=== PATIENT | female | born 1960 | race Caucasian/White ===

== ENCOUNTER → 2018-09-01 15:26 | Outpatient (CLI) | payer BC, SELFPAY ==
--- NOTE | 2018-09-01 15:28 | US_ITS ---
STUDY: SOFT TISSUE NECK ULTRASOUND REASON FOR EXAM: Female, 57 years old. For palpable lump TECHNIQUE: Sonographic evaluation of the soft tissues of the left neck COMPARISON: None. FINDINGS: There is a 1.5 x 0.5 x 0.4 cm hypoechoic 9 shadowing nodule with fatty center suggesting lymph node. No fluid collection or hyperemia noted. US/Head/Neck Soft Tissue IMPRESSION: Likely benign lymph node corresponding to the palpable left neck lump Electronically Signed: Joseph Bray MD at 16:00 EDT , Service support ,
--- NOTE | 2018-09-01 16:05 | RAD_ITS ---
STUDY: X-RAY - CERVICAL SPINE REASON FOR EXAM: Female, 57 years old. Left-sided neck pain TECHNIQUE: 6 view(s) of the cervical spine were obtained. COMPARISON: None FINDINGS: Normal anterior atlantoaxial articulation. Normal odontoid process. Normal cervical lordosis. Normal vertebral bodies and endplates. Normal disc space heights. Normal visualized intervertebral neuroforamina. The soft tissue structures are unremarkable. RAD/Cerv Spine 4 or 5 Views IMPRESSION: Normal x-ray examination of the visualized cervical spine. Electronically Signed: Joseph Bray MD at 16:12 EDT , Service support ,
== END ==
PROVIDERS: Family Provider Family Medicine; PCP Family Medicine; Referring Provider Family Medicine; Visit Provider Family Medicine
DX: M54.2 Cervicalgia (principal); G89.29 Other chronic pain; R59.0 Localized enlarged lymph nodes
CPT/HCPCS: 72050; 76536

== ENCOUNTER → 2018-10-14 09:48 | Outpatient (CLI) | payer BC, SELFPAY ==
--- NOTE | 2018-10-14 09:50 | RAD_ITS ---
STUDY: X-RAY - RIGHT SHOULDER REASON FOR EXAM: Chronic pain. TECHNIQUE: 3 view(s) of the shoulder. COMPARISON: Radiographs 01/07/2015. FINDINGS: Normal glenohumeral articulation. There is elevation of the distal clavicle. Normal acromion. Normal humeral head and visualized proximal humerus. The soft tissue structures are unremarkable. Normal visualized pulmonary apex. RAD/Shoulder min 2 Views IMPRESSION: Elevation of the distal clavicle suggesting remote acromioclavicular separation. Electronically Signed: Thomas Garcia MD at 11:41 EST Tel , Service support ,
--- OUTSIDE RECORDS SUMMARY | 2018-11-30 09:43 | XMS RPT_ITS ---
:1960 Author Organization OHIP Care Team Providers Name Role Phone YONI VELAZQUEZ III Attending Unavailable JUDY CABA (VOCATIONAL AIDE) Attending Unavailable JUDY CABA (VOCATIONAL AIDE) Referring Unavailable KISHAN KELLEY (NIMCO) Attending Unavailable Marcella Purvis Attending Unavailable Josep Wilson Referring Unavailable Marcella Purvis Attending Unavailable Marcella Purvis Referring Unavailable Steve, Josep Primary Care Unavailable Josep Wilson Attending Unavailable Josep Wilson Referring Unavailable SteveJosep marrero Primary Care Unavailable Judy Salguero Attending Unavailable Josep Wilson Primary Care Unavailable Judy Salguero Referring Unavailable PROBLEMS PROBLEMS DATE TYPE CONDITION / CODE ATTENDING STATUS SOURCE 10/14/2018 Unknown M25.511 - Pain Marcella Purvis Active Thelma in right [facility] shoulder / Hospital M25.511(ICD-10) Repository 09/16/2018 Active Pain in right NA Active [facility] knee / Main [place] M25.561(ICD-10) Repository PROCEDURES PROCEDURES No Procedure Records FoundRESULTS RESULTS PROGRESS Observed: 10/21/2018 Status: COMPLETED Source: [place] 2:56 PM [facility] REPOSITORY HNO ID: [id number] Author: Kishan (Nimco) Katherine Service: (none) Author Type: Nurse Practitioner Type: Progress Notes Filed: 10/21/2018 3:01 PM Note Text: 10/21/2018 Patient presents with: Pain: x5 right finger infec. SUBJECTIVE: This is a 57 year old that is here today for concern for right index finger infection at the nail bed. She states that she pulled a hang nail and it started to red red 5 days ago and has since become swollen, tender, warm to touch, and more red down the finger. She denies fever or chills. She has been cleaning it, using antibiotic ointment and keeping it covered. She is able to use the hand and finger normally, just tender when bumped or touched. She is very concerned about the need for PO antibiotic with multiple reactions in the past. PAST MEDICAL HISTORY Diagnosis Date - Anxiety with somatization 03/02/2014 - fibromyalgia - Fibromyalgia 04/24/2012 - Lumbar degenerative disc disease 11/25/2014 - Lumbar radiculopathy 11/25/2014 - Osteoarthritis 04/24/2012 - Osteopenia 08/31/2015 see scanned documents - PMH - PAST MEDICAL HISTORY OF small fibroid mast - PMH - PAST MEDICAL HISTORY OF cyst on ovary - PMH - PAST MEDICAL HISTORY OF low projestrone - PMH - PAST MEDICAL HISTORY OF 04/04/10 torn calf muscle - Ruptured silicone breast implant 04/01/2018 ALLERGIES Adhesive Tape (Rosins); Amoxicillin; Benadryl [Diphenhydramine Hcl]; Crab Meat [Other]; Erythromycin; Keftab [Cephalexin Hcl]; Lorabid [Loracarbef]; Penicillins; [place]arlake Oil; Progesterone; Selenium Sulfide; Shellfish; Tetracycline; Tussin [Dextromethorphan Hbr]; Z- Pack [Other] MEDICATIONS Current Outpatient Prescriptions: Ascorbic Acid (VITAMIN C) Chew Take 500 mg by mouth once daily. castor oil liquid Take 1 Tablespoonful by mouth once daily. topical every night CINNAMON BARK (CINNAMON ORAL) Take 1 teaspoonful by mouth once daily. COMPOUNDED PRESCRIPTION Take 1 tablet by mouth once daily. Magnesium malich acid, manganese, B1, B6 and vitaminC gabapentin (NEURONTIN) 100 mg capsule 100-300mg at bedtime as needed for neuropathic pain ibuprofen (ADVIL) 200 mg tablet Take 200 mg by mouth as needed. mupirocin (BACTROBAN) 2 % ointment Apply 1 application to affected area three times daily for 10 days. OTC NUTRITIONAL SUPPLEMENT Take 2 capsules by mouth once daily. fish oil 640 mg , EPA 350 mg, DHA 450 mg 2 daily sulfamethoxazole-trimethoprim (BACTRIM DS) 800-160 mg per tablet Take 1 tablet by mouth twice daily for 10 days. No current facility-administered medications for this visit. Medications and allergies reviewed by this provider. 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 . Vital signs reviewed by this provider. PHYSICAL EXAMINATION: General appearance: Well appearing, alert, in no acute distress, well-hydrated, well nourished. Skin: right index finger with swelling, erythema, warmth, and tenderness to touch. The majority of the swelling is to the medial edge of nail bed. ASSESSMENT/PLAN: 1. Finger infection - ICD9: 686.9, ICD10: L08.9 - Ok to start with topical, but if no improvement in 1-2 days, would recommend PO. Printed script provided for PO. - continue to wash with soap and water - No lymphangetic streaking, this was defined for patient to watch for and to seek medical care immediately if appears - Area of cellulitis defined, seek further attention if this area continues to enlarge - SULFAMETHOXAZOLE 800 MG-TRIMETHOPRIM 160 MG TABLET - MUPIROCIN 2 % TOPICAL OINTMENT Kishan Kelley APRN.CONSULTANT TEACHER CNOV Observed: 10/21/2018 Status: COMPLETED Source: [place] 1:20 PM [facility] REPOSITORY Office Visit (FAMPWS) BONNIE BERMUDEZ ([id number]) 1960 F Date Time Provider Department 10/21/18 1:20 PM KISHAN KELLEY (NIMCO) FOR[facility] During your visit today, we recorded the following information about you: Pulse Respiration Blood pressure Weight 82/minute 16/minute 122/72 70.8 kg Kishan Kelley APRN.CNP 10/21/2018 3:01 PM Signed 10/21/2018 Patient presents with: Pain: x5 right finger infec. SUBJECTIVE: This is a 57 year old that is here today for concern for right index finger infection at the nail bed. She states that she pulled a hang nail and it started to red red 5 days ago and has since become swollen, tender, warm to touch, and more red down the finger. She denies fever or chills. She has been cleaning it, using antibiotic ointment and keeping it covered. She is able to use the hand and finger normally, just tender when bumped or touched. She is very concerned about the need for PO antibiotic with multiple reactions in the past. PAST MEDICAL HISTORY Diagnosis Date - Anxiety with somatization 03/02/2014 - fibromyalgia - Fibromyalgia 04/24/2012 - Lumbar degenerative disc disease 11/25/2014 - Lumbar radiculopathy 11/25/2014 - Osteoarthritis 04/24/2012 - Osteopenia 08/31/2015 see scanned documents - PMH - PAST MEDICAL HISTORY OF small fibroid mast - PMH - PAST MEDICAL HISTORY OF cyst on ovary - PMH - PAST MEDICAL HISTORY OF low projestrone - PMH - PAST MEDICAL HISTORY OF 04/04/10 torn calf muscle - Ruptured silicone breast implant 04/01/2018 ALLERGIES Adhesive Tape (Rosins); Amoxicillin; Benadryl [Diphenhydramine Hcl]; Crab Meat [Other]; Erythromycin; Keftab [Cephalexin Hcl]; Lorabid [Loracarbef]; Penicillins; Clearl[place] Oil; Progesterone; Selenium Sulfide; Shellfish; Tetracycline; Tussin [Dextromethorphan Hbr]; Z-Pack [Other] MEDICATIONS Current Outpatient Prescriptions: Ascorbic Acid (VITAMIN C) Chew Take 500 mg by mouth once daily. castor oil liquid Take 1 Tablespoonful by mouth once daily. topical every night CINNAMON BARK (CINNAMON ORAL) Take 1 teaspoonful by mouth once daily. COMPOUNDED PRESCRIPTION Take 1 tablet by mouth once daily. Magnesium malich acid, manganese, B1, B6 and vitaminC gabapentin (NEURONTIN) 100 mg capsule 100-300mg at bedtime as needed for neuropathic pain ibuprofen (ADVIL) 200 mg tablet Take 200 mg by mouth as needed. mupirocin (BACTROBAN) 2 % ointment Apply 1 application to affected area three times daily for 10 days. OTC NUTRITIONAL SUPPLEMENT Take 2 capsules by mouth once daily. fish oil 640 mg , EPA 350 mg, DHA 450 mg 2 daily sulfamethoxazole-trimethoprim (BACTRIM DS) 800-160 mg per tablet Take 1 tablet by mouth twice daily for 10 days. No current facility-administered medications for this visit. Medications and allergies reviewed by this provider. 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 . Vital signs reviewed by this provider. PHYSICAL EXAMINATION: General appearance: Well appearing, alert, in no acute distress, well-hydrated, well nourished. Skin: right index finger with swelling, erythema, warmth, and tenderness to touch. The majority of the swelling is to the medial edge of nail bed. ASSESSMENT/PLAN: 1. Finger infection - ICD9: 686.9, ICD10: L08.9 - Ok to start with topical, but if no improvement in 1-2 days, would recommend PO. Printed script provided for PO. - continue to wash with soap and water - No lymphangetic streaking, this was defined for patient to watch for and to seek medical care immediately if appears - Area of cellulitis defined, seek further attention if this area continues to enlarge - SULFAMETHOXAZOLE 800 MG-TRIMETHOPRIM 160 MG TABLET - MUPIROCIN 2 % TOPICAL OINTMENT Kishan Kelley APRN.CONSULTANT TEACHER Referring Provider: SELF [200] Allergies As of Date: 10/21/2018 Noted Allergy Reaction ADHESIVE TAPE (ROSINS) 02/17/2013 14 - Other: See Comments Comments: makes skin raw AMOXICILLIN 10/05/2005 BENADRYL (DIPHENHYDRAMINE HCL) 10/05/2005 CRAB MEAT [Other] 10/05/2005 ERYTHROMYCIN 10/05/2005 KEFTAB (CEPHALEXIN HCL) 10/05/2005 LORABID (LORACARBEF) 10/05/2005 PENICILLINS 02/17/2013 2 - Rash Comments: hives, redness PINE OIL 03/02/2014 2 - Rash PROGESTERONE 04/17/2012 8 - GI Upset SELENIUM SULFIDE 04/19/2010 SHELLFISH 10/05/2005 TETRACYCLINE 10/31/2009 2 - Rash TUSSIN (DEXTROMETHORPHAN HBR) 10/05/2005 Z-PACK [Other] 10/05/2005 Date Reviewed: 10/21/2018 Reviewed by: Jodie Francisco) ALEJANDRA Terry - Fully Assessed Reason for Visit: Pain [78] Cmt: x5 right finger infec. Primary Visit Diagnosis:Finger infection [L08.9] Order(s):sulfamethoxazole-trimethoprim (BACTRIM DS) 800-160 mg per tabletTake 1 tablet by mouth twice daily for 10 days.Disp: 20 tabletRfl: 0 mupirocin (BACTROBAN) 2 % ointmentApply 1 application to affected area three times daily for 10 days.Disp: 22 gRfl: 0 Prescriptions as of 10/21/2018 Sig: ASCORBIC ACID (VITAMIN C) 500* Take 500 mg by mouth once shwetha* CASTOR OIL Take 1 Tablespoonful by mouth* CINNAMON ORAL Take 1 teaspoonful by mouth o* COMPOUNDED PRESCRIPTION Take 1 tablet by mouth once d* GABAPENTIN 100 MG CAPSULE 100-300mg at bedtime as neede* IBUPROFEN 200 MG TABLET Take 200 mg by mouth as neede* MUPIROCIN 2 % TOPICAL OINTMENT Apply 1 application to affect* OTC NUTRITIONAL SUPPLEMENT Take 2 capsules by mouth once* SULFAMETHOXAZOLE 800 MG-TRIME* Take 1 tablet by mouth twice * Problem List As Of Date 10/21/2018 Noted Resolved ESOPHAGEAL REFLUX [K21.9] INVALID FOR* MYALGIA AND MYOSITIS NOS [RRM1714] INVALID FOR* EXCESSIVE MENSTRUATION [N92.0] INVALID FOR* Folliculitis [L73.9] INVALID FOR* 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) Furf*INVALID FOR* Eczematous Dermatitis [L30.9] INVALID FOR* Exanthem [R21] INVALID FOR* Other Acne [L70.8] INVALID FOR* Gastrocnemius Muscle Tear [S86.119A] INVALID FOR* Actinic Damage//Sun-Damaged Skin [L57.8] INVALID FOR* Open Wnd Site from Cryosurgery (leg) healing [T*INVALID FOR* Fibroid [D21.9] INVALID FOR* Metrorrhagia [N92.1] INVALID FOR* Dysmenorrhea [N94.6] INVALID FOR* Fibromyalgia [M79.7] INVALID FOR* Osteoarthritis [M19.90] INVALID FOR* Pain in joint, multiple sites [M25.50] INVALID FOR* Anemia [D64.9] INVALID FOR* Anxiety with somatization [F41.9, F45.0] INVALID FOR* Pain in joint, shoulder region [M25.519] INVALID FOR* Lumbar degenerative disc disease [M51.36] INVALID FOR* Lumbar radiculopathy [M54.16] INVALID FOR* Lumbago [M54.5] INVALID FOR* Acromioclavicular (joint) (ligament) sprain [S4*INVALID FOR* Ruptured silicone breast implant [T85.49XA] INVALID FOR* Prescriptions ordered this encounter Disp Refills Start End SULFAMETHOXAZOLE 800 MG-TRIMETHOPRIM* 20 t* 0 10/21/2018 10/31/2018 Class: Print RX Cmt: Ok to give generic equivalent Route: ORAL Sig: Take 1 tablet by mouth twice daily for 10 days. MUPIROCIN 2 % TOPICAL OINTMENT 22 g 0 10/21/2018 10/31/2018 Route: TOPICAL Sig: Apply 1 application to affected area three times daily for 10 days. Medications Discontinued During This Encounter mupirocin (BACTROBAN) 2 % ointment 22 g 0 09/06/2018 10/21/2018 Route: TOPICAL Sig: Apply 1 application to affected area three times daily for 10 days. Disc: Reason for discontinue is not on file. Encounter Status:Closed by KISHAN KELLEY on 10/21/18 PT D/C SUMMARY (1) Observed: 10/21/2018 Status: F Source: [place] 9:53 AM [facility] REPOSITORY [facility] Physical Therapy [facility] [address] [place] [address] Fax REHABILITATION SERVICES DISCHARGE SUMMARY MR#: [id number] Acct: [id number] Name: BONNIE BERMUDEZ Rep #: [id number] : 1960 57 From: Eli Bullock DPT Referring Dr.: Judy WOODSON Status: REG RCR Insurance: ANTHEM SELF PAY INSURANCE HP - PT D/C Summary It has been my pleasure to treat BONNIE BERMUDEZ under orders from Judy Caba VOCATIONAL AIDE-C, for the diagnosis of Right Knee Pain for a total of 13 visit(s). Discharge Date: Please see the following information for a summary of their discharge status. - Subjective Subjective: Patient reports that she still can't do the TM without pain but she is a lot stronger and likes the exercises. Body works in the lower extremity is her plan as well as strengthening. - Pain RLE Pain Intensity (Out of 10): 0 - Overall Improvement % Improvement: 50 - Objective Objective/Function: Posture: WNL throughout treatment session in hardback chair Gait: no deviation noted. Stairs: asc/desc 8 recip with 1 HR- uses HR with good control HR/TR: able with pain. SLS: 15 sec without LOB ROM: WLF in all planes. Palpation: not tender to touch Strength: Core: poor, Hip: 4+/5 throughout, Knee: 5/5, Ankle: 5/5 throughout. Special Test: LLD: none Pelvic Alignment: WFL - Goals Goal 1:: Patient will be I with HEP and progression Goal Progress: Goal Met Goal 2:: Patient will maintain proper posture t/o tx session to demo increased core s/s. Goal Progress: Goal Met Goal 3:: Patient will demo 5/5 strength in LE where deficit Goal Progress: Progressing Goal 4:: Patient will report 0/10 pain for 1 week Goal Progress: Progressing Goal 5:: Patinet will asc/desc 8 stairs recip with 1 HR and good control Goal Progress: Goal Met - Plan Plan: Discharge to I [facility]P via [facility]- encouraged her to ask if questions arise. - D/C Information If there are questions or concerns regarding this patient's physical therapy, please feel free to call me at [phone]. Thank you for the referral of this patient. Sincerely, Eli Bullock, DPT <Electronically signed by Eli Bullock DPT> 10/21/18 0953 CC: Judy WOODSON; Josep Wilson DO ELR Signed ORTHOPEDIC VISIT Observed: 10/14/2018 Status: F Source: [place] REPORT 2:44 PM [facility] REPOSITORY [facility] [address] [place] [address] [address] [place] [address] OFFICE VISIT Date of Service: 10/14/18 MR#: [id number] Acct: [id number] Name: BONNIE BERMUDEZ Rep #: [id number] : 1960 Provider: Marcella Purvis DO Age/Sex: 57/F Location: [facility] [place] [place] Status: Signed Intake Intake Visit Reasons: right shoulder Allergies azithromycin [From Zithromax] Allergy (Verified 01/07/15 13:06) Rash cephalexin monohydrate [From Keflex] Allergy (Verified 01/07/15 13:06) Rash diphenhydramine HCl [From Benadryl] Allergy (Verified 01/07/15 13:06) Other loracarbef [From Lorabid] Allergy (Verified 01/07/15 13:06) Other Penicillins Allergy (Verified 01/07/15 13:06) Anaphylaxis shellfish derived Allergy (Verified 01/07/15 13:06) Anaphylaxis tetracycline Allergy (Verified 01/07/15 13:06) Rash Medications Ibuprofen [Motrin] 800 mg PO TID PRN PRN #30 tab 01/07/15 [Rx] PFSH Social History Smoking Status: Former smoker HPI right shoulder: Details: BONNIE BERMUDEZ is a 57 year old F here today for right shoulder pain. Patient states she has numbness going down right shoulder along with grinding. She states she has had this issue since her injury in 2013. She has been using her Thera band. She stopped doing pushups due to pain. She has been noticing the numbness mostly at night time. She is not taking any pain meds. Ortho Exam Right Shoulder Skin/Wound: Yes CDI Contralateral Normal: Yes Testing: Positive Hawkin's, Neer's, AROM-External Rotation at 90 0-60 (40), AROM-Forward Elevation 0-180, AROM-External Rotation at side 0-60 and TTP AC Joint SHOULDER: Neg Mariel today, neg dakotah Assessment AND Plan 1. Subacromial impingement of right shoulder M75.41 Plan patient has no neuro exam findings today on exam, but subjective radiculopathy at night. defer to dr cutler, but if having concerns and not improving, told to return. may need EMG, etc but will defer to he at this time. she is also having some impingment symptoms but pt refused injection today. All questions answered. Patient in agreement of plan. X-rays were reviewed. There is no obvious fracture, dislocation, or lucency noted but there is a change in the AC joint. Explained that the radicular pain done her arm is likely from her neck but the ac separation from the injury is also causing pain. Her treatment options are do nothing, injection, referral to Dr Garg for her neck or PT. She can continue chiro care as long as it is helpful. She has neg spurlings today. Gave PT script for dry needling. Patient declines injection today. Follow up as needed or sooner if pain, swelling, numbness or associated symptoms, or concerns develop. All questions answered. Patient in agreement of plan. 2. Sprain of right acromioclavicular ligament, initial encounter S43.51XA 3. Cervical radicular pain M54.12 Plan Detail Other Orders Orders: Coding Level of Care Code Off vis,est,level 4 Diagnoses Subacromial impingement of right shoulder M75.41 Sprain of right acromioclavicular ligament, initial encounter S43.51XA Encounter type: initial encounter Cervical radicular pain M54.12 10/14/18 7094 <Electronically signed by Marcella Purvis DO> Date Marcella Purvis DO Cosigner Signature: Date (if applicable) CC: SHOULDER MIN 2 VIEWS Observed: 10/14/2018 Status: F Source: [place] 9:50 AM [facility] REPOSITORY [facility] Imaging Services [address] [place] [address] Shoulder min 2 Views MR#: [id number] Acct: [id number] Name: BONNIE BERMUDEZ Rep #: [id number] : 1960 F 57 From: Thomas Garcia MD PCP: Josep Wilson DO Status: REG CLI Study: Shoulder min 2 Views Date of Exam: 10/14/18 Exam# [id number] Ordering Dr: Marcella Purvis DO STUDY: X-RAY - RIGHT SHOULDER REASON FOR EXAM: Chronic pain. TECHNIQUE: 3 view(s) of the shoulder. COMPARISON: Radiographs 01/07/2015. FINDINGS: Normal glenohumeral articulation. There is elevation of the distal clavicle. Normal acromion. Normal humeral head and visualized proximal humerus. The soft tissue structures are unremarkable. Normal visualized pulmonary apex. RAD/Shoulder min 2 Views IMPRESSION: Elevation of the distal clavicle suggesting remote acromioclavicular separation. Electronically Signed: Thomas Garcia MD at 11:41 EST Tel , Service support , CC: Marcella Purvis DO; Josep Wilson DO 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: Signed INITAL EVALUATION (1) Observed: 09/22/2018 Status: F Source: [place] - [place] [facility] Physical Therapy [facility] [address] [place], [place] [address] Fax REHABILITATION SERVICES INITIAL EVALUATION MR#: [id number] Acct: [id number] Name: BONNIE BERMUDEZ Rep #: [id number] : 1960 57 From: Eli Bullock DPT Referring Dr.: Judy WOODSON Status: REG RCR Insurance: ANTHEM SELF PAY INSURANCE Patient's Visit Information BONNIE BERMUDEZ is a 57 year old F referred to Physical Therapy by MORALES Messer with a diagnosis of Right Knee Pain. Date of Evaluation: 09/22/18 Physical Therapist: Eli Bullock - Visit Plan Frequency: 3x /Week Duration: 4 Weeks Plan: Focus on core s/s and LE s/s- caution of Fibro - Subjective Subjective: Patient reports that she had tendonitis in her right foot- usually walks the TM 45 min 4-5 days a week and is now having pain radiating up to the mid thigh. No problems with the elliptical. Hiked last week 25 min and had to hobble out. Has Fibro and torn the right calf prior- does stretching and incorporate her previous PT. Only pain she has is when walking the TM. Pain is in the achilles and radiates to the mid thigh along the medial side. Does not do any leg weights. Normally saves her tennis shoes- [employer] now- no orthotics in her shoes. Wears Dr. Orourke in her boots she mowes in. Worst: 10/10 Best: 0/10. Eases: stop- pain elevates immediately Describes the pain as tightness. No injections. Is doing ankle exercises and shows improvement. Had a knee x-ray and they didn t see anything- no MRI. Feels like she is not getting better. Sleep: disturbed. PMhx: fibro, oa, migraines. Meds: none. 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 - Objective Posture: FH, RS, Increased kyphosis- can correct with verbal cueing but does not maintain. Gait: no deviation noted. Stairs: asc/desc 8 recip with 2 HR- uses HR for propulsion- decreased control with descent. HR/TR: able with pain. SLS: unstable on the right with increased muscle activation. ROM: WLF in all planes. Palpation: tender along medial gastroc- medial joint line and medial quad. Strength: Core: poor, Hip: 4-/5 throughout, Knee: 4+/5, Ankle: 4+/5 throughout. Special Test: LLD: none Pelvic Alignment: WFL - Goals Goal 1:: Patient will be I with HEP and progression Goal Time Frame: 4-6 Weeks Goal 2:: Patient will maintain proper posture t/o tx session to demo increased core s/s. Goal Time Frame: 4-6 Weeks Goal 3:: Patient will demo 5/5 strength in LE where deficit Goal Time Frame: 4-6 Weeks Goal 4:: Patient will report 0/10 pain for 1 week Goal Time Frame: 4-6 Weeks Goal 5:: Patinet will asc/desc 8 stairs recip with 1 HR and good control Goal Time Frame: 4-6 Weeks - Rehabilitation Potential Physical Therapy Diagnosis: Patient presents with hypomobility- she has decreased strength and muscular endurance leading to increased pain with ADL's and recreational activities Rehabilitation Potential: Fair - Anticipated Interventions Patient/Client Instruction: Educate patient on: Benefits of Fitness Program Therapeutic Exercise to Include: Strength training, Endurance training, Balance training, Coordination, Agility training, Body mechanics, Postural training, Flexibilty training, Gait and locomotor training, Dynamic Lumbar Stabilization, Scapular Strength/Stabilization For the Purpose of:: To improve muscle performance and motor function TENS: Yes Cryotherapy (ice pack, ice massage): Yes Thermo therapy (hot pack): Yes Ultrasound (thermal/non thermal): Yes Thank you for the opportunity to evaluate your patient. For Medicare and Medicare HMO plans, please review the plan of care and approve it. It will need to be FAXED BACK to us at [phone] for Medicare purposes. Please let me know if there are questions or concerns regarding this plan of care. Physician Signature: Date: <Electronically signed by Eli Bullock DPT> 09/22/18 1042 CC: Judy WOODSON; Josep Steve DO ELR Signed For Medicare only, by signing this I certify the plan of care. Physicians Signature Date XR KNEE 4V AP/PA Observed: 09/16/2018 Status: F Source: [place] 10:36 AM [place] [facility] REPOSITORY * * *Final Report* * * DATE OF EXAM: Sep 16 2018 10:36AM WOX [id number] - XR KNEE 4V AP/PA BOTH+LAT/SALBADOR RT / PROCEDURE REASON: Acute pain of right knee * * * * Physician Interpretation * * * * PROCEDURE: Right knee INDICATION: Acute pain of right knee .pain in right knee for about 4 months/no injuries TECHNIQUE: XR KNEE 4V AP/PA BOTH+LAT/SALBADOR RT COMPARISON: None FINDINGS: No fractures or dislocations are seen. No joint effusion or joint body is evident. The joint spaces are maintained without evidence for significant degenerative or arthritic change. IMPRESSION: Negative. 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 [employer] Springs: JARRED Transcribe Date/Time: Sep 16 2018 1:11P Dictated by : RGEAN MARLOW MD This examination was interpreted and the report reviewed and electronically signed by: REGAN MARLOW MD on Sep 16 2018 1:11PM EST [id number] PROGRESS Observed: 09/16/2018 Status: COMPLETED Source: [place] 10:20 AM [facility] REPOSITORY HNO ID: [id number] Author: Nava Chapa (Tech) Tiffanie Georges Service: (none) Author Type: Videotape Operator Type: Progress Notes Filed: 09/16/2018 10:36 AM Note Text: Radiology Service Progress Note PATIENT NAME: Bonnie Bermudez DATE OF SERVICE: September 16, 2018 TIME: 10:20 AM PATIENT IDENTITY VERIFICATION COMPLETED USING TWO (2) METHODS: Patient confirmed name verbally and Date of . PATIENT GENDER DATA: Female. status: : No status: NO. PATIENT RELEVANT IMPLANT DATA REVIEWED: Not Applicable RADIOLOGY DEPARTMENT: General X-ray: Exam(s) Completed: Lower Extremity X-Ray(s): Knee, AP / Lat / Tunne / Merchant Right and Wt. Bearing: PERIPHERAL IV DATA: Not applicable SIGNED BY: Tiffanie Giles September 16, 2018 10:20 AM PROGRESS Observed: 09/16/2018 Status: COMPLETED Source: [place] 9:29 AM [facility] REPOSITORY HNO ID: [id number] Author: Lisa Elliott APN Student Service: (none) Author Type: (none) Type: Progress Notes Filed: 09/16/2018 10:33 AM Note Text: Chief Complaint Patient presents with: Recheck: left thumb splinter HPI Bonnie Bermudez is a 57 year old female who presents here today for Above Complaints. Follow up from Urgent Care 09/06 for infected left thumb, splinter while picking up an onion. Redness and swelling improved greatly. Pain decreased. No fevers, chills, or streaking up arm. Tenderness on palpation of site. Skin intact. Patient has been using bactroban as ordered. Also intermittent pain, tightness in right knee for the past four months. Pain worse when on the treadmill and hiking, but can tolerate the elliptical. Occasional knee buckling. No swelling or redness noted. Has used massage and heat without much relief. History of torn calf muscle years ago. Future trip next fall to [place] and intends to hike [facility]. Past medical history, appointments, medications, allergies reviewed. Previous Medical History PAST MEDICAL HISTORY Diagnosis Date - Anxiety with somatization 03/02/2014 - fibromyalgia - Fibromyalgia 04/24/2012 - Lumbar degenerative disc disease 11/25/2014 - Lumbar radiculopathy 11/25/2014 - Osteoarthritis 04/24/2012 - Osteopenia 08/31/2015 see scanned documents - PMH - PAST MEDICAL HISTORY OF small fibroid mast - PMH - PAST MEDICAL HISTORY OF cyst on ovary - PMH - PAST MEDICAL HISTORY OF low projestrone - PMH - PAST MEDICAL HISTORY OF 04/04/10 torn calf muscle - Ruptured silicone breast implant 04/01/2018 Previous Surgical History PAST SURGICAL HISTORY Procedure Laterality Date - breast augmentation - LIGATE FALLOPIAN TUBE 1987 Tubal ligation - PAST SURGICAL HISTORY OF 06/26/10 frozen spots on left side - REMOVAL OF TONSILS,<14 Y/O Tonsillectomy - VAGINAL HYSTERECTOMY 09/22/2013 Hysterectomy, vaginal Family History FAMILY HISTORY Problem Relation Age of Onset - Breast Cancer Maternal Aunt - Cancer Maternal Aunt ovarian - Cancer Maternal Aunt lung-smoker - Coronary Artery Disease Maternal Uncle - Coronary Artery Disease Maternal Uncle - Coronary Artery Disease Maternal Aunt - Coronary Artery Disease Maternal Aunt - Diabetes Paternal Grandmother obese - Stroke Maternal Aunt - other (blood clots [Other]) Father Patient Allergies ALLERGIES Allergen Reactions - Adhesive Tape (Melodie* Other: See Comments makes skin raw - Amoxicillin - Benadryl [Diphenhyd* - Crab Meat [Other] - Erythromycin - Keftab [Cephalexin * - Lorabid [Loracarbef] - Penicillins Rash hives, redness - Clearlake Oil Rash - Progesterone GI Upset - Selenium Sulfide - Shellfish - Tetracycline Rash - Tussin [Dextrometho* - Z-Pack [Other] Current Medications Current Outpatient Prescriptions on File Prior to Visit: mupirocin (BACTROBAN) 2 % ointment Apply 1 application to affected area three times daily for 10 days. OTC NUTRITIONAL SUPPLEMENT Take 2 capsules by mouth once daily. fish oil 640 mg , EPA 350 mg, DHA 450 mg 2 daily castor oil liquid Take 1 Tablespoonful by mouth once daily. topical every night ibuprofen (ADVIL) 200 mg tablet Take 200 mg by mouth as needed. COMPOUNDED PRESCRIPTION Take 1 tablet by mouth once daily. Magnesium malich acid, manganese, B1, B6 and vitaminC CINNAMON BARK (CINNAMON ORAL) Take 1 teaspoonful by mouth once daily. Ascorbic Acid (VITAMIN C) Chew Take 500 mg by mouth once daily. gabapentin (NEURONTIN) 100 mg capsule 100-300mg at bedtime as needed for neuropathic pain (Patient not taking: Reported on 04/01/2018 ) No current facility-administered medications on file prior to visit. 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 Social History Main Topics Smoking status: Former Smoker Packs/day: 0.00 Years: 0.00 Smokeless tobacco: Never Used Comment: NOV 1989 Alcohol use: No Drug use: No Sexual activity: Not Currently Partners with: Male control/protection: Tubal Ligation Review of Symptoms REVIEW OF SYSTEMS GENERAL: No weight loss, malaise or fevers RESPIRATORY: Negative for cough, hemoptysis, wheezing, COPD, dyspnea or shortness of breath CARDIOVASCULAR: Negative for chest pain, leg swelling, hypertension, CHF or palpitations MUSCULOSKELETAL: Right knee pain, See HPI SKIN: See HPI EXAM: BP 110/80 (BP Site: Left Arm, BP Position: Sitting, BP Cuff Size: Regular Adult) Pulse 68 Temp 36.3 ?C (97.4 ?F) (Tympanic) Resp 16 Wt 69.4 kg (153 lb) LMP 09/08/2013 BMI 28.44 kg/m? General Appearance: Well appearing, alert, in no acute distress, well-hydrated, well nourished.. Skin: Skin color, texture, turgor normal, no suspicious rashes or lesions. Slight erythema to left thumb. Skin intact. Lungs: lungs clear to auscultation. No wheezing, rhonchi, rales. Heart: RRR without murmur, gallop, or rubs. No ectopy. Extremities: No deformities, edema, skin discoloration, clubbing or cyanosis. Good capillary refill. Musculoskeletal: No joint swelling, deformity, or tenderness, no joint laxity or crepitus with maneuvers on exam. Health Maintenance List DTAP,TDAP,TD(1 - Tdap) due on 1981 HPV EVERY 5 YEARS due on 1992 HEPATITIS C SCREENING due on 2006 COLORECTAL CANCER SCREENING,SEE MODIFIER due on 2012 MAMMOGRAM due on 04/26/2015 DIABETES SCREEN due on 03/02/2017 PAP EVERY 5 YEARS due on 02/05/2018 LIPID SCREEN due on 10/05/2019 INFLUENZA Completed ASSESSMENT/PLAN: 1. Puncture wound of left thumb without complication, subsequent encounter - ICD9: V58.89, 883.0, ICD10: S61.032D - Continue Bactroban to left thumb until redness resolved. - Warm compress. - Return if redness, pain, swelling is worse. 2. Acute pain of right knee - ICD9: 719.46, ICD10: M25.561 - XR KNEE GENERAL 4V AP BOTH/PA BOTH/LAT/MERC RT - CONSULT TO PHYSICAL THERAPY-Patient will schedule own apt with [employer], her choice - Suggested Motrin for 2 weeks, ice prn.. Judy Caba, MSN E COMMERCE STRATEGIST.CONSULTANT TEACHER CNOV Observed: 09/16/2018 Status: COMPLETED Source: [place] 9:20 AM [facility] REPOSITORY Office Visit (FAMPWS) BONNIE BERMUDEZ ([id number]) 1960 F Date Time Provider Department 09/16/18 9:20 AM JUDY CABA (VOCATIONAL AIDE) [facility]AMPWS During your visit today, we recorded the following information about you: Temperature Pulse Respiration Blood pressure 97.4 degrees 68/minute 16/minute 110/80 Weight 69.4 kg Lisa Elliott GARDEN LABOURER Student 09/16/2018 10:07 AM Signed Chief Complaint Patient presents with: Recheck: left thumb splinter HPI Bonnie Bermudez is a 57 year old female who presents here today for Above Complaints. Follow up from Urgent Care 09/06 for infected left thumb, splinter while picking up an onion. Redness and swelling improved greatly. Pain decreased. No fevers, chills, or streaking up arm. Tenderness on palpation of site. Skin intact. Patient has been using bactroban as ordered. Also intermittent pain, tightness in right knee for the past four months. Pain worse when on the treadmill and hiking, but can tolerate the elliptical. Occasional knee buckling. No swelling or redness noted. Has used massage and heat without much relief. History of torn calf muscle years ago. Future trip next fall to [place] and intends to hike [facility]. Past medical history, appointments, medications, allergies reviewed. Previous Medical History PAST MEDICAL HISTORY Diagnosis Date - Anxiety with somatization 03/02/2014 - fibromyalgia - Fibromyalgia 04/24/2012 - Lumbar degenerative disc disease 11/25/2014 - Lumbar radiculopathy 11/25/2014 - Osteoarthritis 04/24/2012 - Osteopenia 08/31/2015 see scanned documents - PMH - PAST MEDICAL HISTORY OF small fibroid mast - PMH - PAST MEDICAL HISTORY OF cyst on ovary - PMH - PAST MEDICAL HISTORY OF low projestrone - PMH - PAST MEDICAL HISTORY OF 04/04/10 torn calf muscle - Ruptured silicone breast implant 04/01/2018 Previous Surgical History PAST SURGICAL HISTORY Procedure Laterality Date - breast augmentation - LIGATE FALLOPIAN TUBE 1986 Tubal ligation - PAST SURGICAL HISTORY OF 06/26/10 frozen spots on left side - REMOVAL OF TONSILS,<12 Y/O Tonsillectomy - VAGINAL HYSTERECTOMY 09/22/2013 Hysterectomy, vaginal Family History FAMILY HISTORY Problem Relation Age of Onset - Breast Cancer Maternal Aunt - Cancer Maternal Aunt ovarian - Cancer Maternal Aunt lung-smoker - Coronary Artery Disease Maternal Uncle - Coronary Artery Disease Maternal Uncle - Coronary Artery Disease Maternal Aunt - Coronary Artery Disease Maternal Aunt - Diabetes Paternal Grandmother obese - Stroke Maternal Aunt - other (blood clots [Other]) Father Patient Allergies ALLERGIES Allergen Reactions - Adhesive Tape (Melodie* Other: See Comments makes skin raw - Amoxicillin - Benadryl [Diphenhyd* - Crab Meat [Other] - Erythromycin - Keftab [Cephalexin * - Lorabid [Loracarbef] - Penicillins Rash hives, redness - Clearlake Oil Rash - Progesterone GI Upset - Selenium Sulfide - Shellfish - Tetracycline Rash - Tussin [Dextrometho* - Z-Pack [Other] Current Medications Current Outpatient Prescriptions on File Prior to Visit: mupirocin (BACTROBAN) 2 % ointment Apply 1 application to affected area three times daily for 10 days. OTC NUTRITIONAL SUPPLEMENT Take 2 capsules by mouth once daily. fish oil 640 mg , EPA 350 mg, DHA 450 mg 2 daily castor oil liquid Take 1 Tablespoonful by mouth once daily. topical every night ibuprofen (ADVIL) 200 mg tablet Take 200 mg by mouth as needed. COMPOUNDED PRESCRIPTION Take 1 tablet by mouth once daily. Magnesium malich acid, manganese, B1, B6 and vitaminC CINNAMON BARK (CINNAMON ORAL) Take 1 teaspoonful by mouth once daily. Ascorbic Acid (VITAMIN C) Chew Take 500 mg by mouth once daily. gabapentin (NEURONTIN) 100 mg capsule 100-300mg at bedtime as needed for neuropathic pain (Patient not taking: Reported on 04/01/2018 ) No current facility-administered medications on file prior to visit. 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 Social History Main Topics Smoking status: Former Smoker Packs/day: 0.00 Years: 0.00 Smokeless tobacco: Never Used Comment: NOV 1989 Alcohol use: No Drug use: No Sexual activity: Not Currently Partners with: Male control/protection: Tubal Ligation Review of Symptoms REVIEW OF SYSTEMS GENERAL: No weight loss, malaise or fevers RESPIRATORY: Negative for cough, hemoptysis, wheezing, COPD, dyspnea or shortness of breath CARDIOVASCULAR: Negative for chest pain, leg swelling, hypertension, CHF or palpitations MUSCULOSKELETAL: Right knee pain, See HPI SKIN: See HPI EXAM: BP 110/80 (BP Site: Left Arm, BP Position: Sitting, BP Cuff Size: Regular Adult) Pulse 68 Temp 36.3 ?C (97.4 ?F) (Tympanic) Resp 16 Wt 69.4 kg (153 lb) LMP 09/08/2013 BMI 28.44 kg/m? General Appearance: Well appearing, alert, in no acute distress, well-hydrated, well nourished.. Skin: Skin color, texture, turgor normal, no suspicious rashes or lesions. Slight erythema to left thumb. Skin intact. Lungs: lungs clear to auscultation. No wheezing, rhonchi, rales. Heart: RRR without murmur, gallop, or rubs. No ectopy. Extremities: No deformities, edema, skin discoloration, clubbing or cyanosis. Good capillary refill. Musculoskeletal: No joint swelling, deformity, or tenderness, no joint laxity or crepitus with maneuvers on exam. Health Maintenance List DTAP,TDAP,TD(1 - Tdap) due on 1981 HPV EVERY 5 YEARS due on 1992 HEPATITIS C SCREENING due on 2006 COLORECTAL CANCER SCREENING,SEE MODIFIER due on 2012 MAMMOGRAM due on 04/26/2015 DIABETES SCREEN due on 03/02/2017 PAP EVERY 5 YEARS due on 02/05/2018 LIPID SCREEN due on 10/05/2019 INFLUENZA Completed ASSESSMENT/PLAN: 1. Puncture wound of left thumb without complication, subsequent encounter - ICD9: V58.89, 883.0, ICD10: S61.032D - Continue Bactroban to left thumb until redness resolved. - Warm compress. - Return if redness, pain, swelling is worse. 2. Acute pain of right knee - ICD9: 719.46, ICD10: M25.561 - XR KNEE GENERAL 4V AP BOTH/PA BOTH/LAT/MERC RT - CONSULT TO PHYSICAL THERAPY-Patient will schedule own apt with [employer], her choice - Suggested Motrin for 2 weeks, ice prn.. Judy Caba, MSN E COMMERCE STRATEGIST.CONSULTANT TEACHER Referring Provider: SELF [200] Allergies As of Date: 09/16/2018 Noted Allergy Reaction ADHESIVE TAPE (ROSINS) 02/17/2013 14 - Other: See Comments Comments: makes skin raw AMOXICILLIN 10/05/2005 BENADRYL (DIPHENHYDRAMINE HCL) 10/05/2005 CRAB MEAT [Other] 10/05/2005 ERYTHROMYCIN 10/05/2005 KEFTAB (CEPHALEXIN HCL) 10/05/2005 LORABID (LORACARBEF) 10/05/2005 PENICILLINS 02/17/2013 2 - Rash Comments: hives, redness PINE OIL 03/02/2014 2 - Rash PROGESTERONE 04/17/2012 8 - GI Upset SELENIUM SULFIDE 04/19/2010 SHELLFISH 10/05/2005 TETRACYCLINE 10/31/2009 2 - Rash TUSSIN (DEXTROMETHORPHAN HBR) 10/05/2005 Z-PACK [Other] 10/05/2005 Date Reviewed: 09/16/2018 Reviewed by: Johanne Quinonez LPN - Fully Assessed Reason for Visit: Recheck [92] Cmt: left thumb splinter Primary Visit Diagnosis:Puncture wound of left thumb without complication, subsequent encounter [S63.304D] Other Visit Diagnosis:Acute pain of right knee [M25.561] Order(s):XR KNEE GENERAL 4V AP BOTH/PA BOTH/LAT/MERC RT [[id number]] Order #: [id number] FUTURE CONSULT TO PHYSICAL THERAPY [9004] Order #: [id number]: 1 Prescriptions as of 09/16/2018 Sig: MUPIROCIN 2 % TOPICAL OINTMENT Apply 1 application to affect* OTC NUTRITIONAL SUPPLEMENT Take 2 capsules by mouth once* CASTOR OIL Take 1 Tablespoonful by mouth* IBUPROFEN 200 MG TABLET Take 200 mg by mouth as neede* COMPOUNDED PRESCRIPTION Take 1 tablet by mouth once d* CINNAMON ORAL Take 1 teaspoonful by mouth o* ASCORBIC ACID (VITAMIN C) 500* Take 500 mg by mouth once shwetha* GABAPENTIN 100 MG CAPSULE 100-300mg at bedtime as neede* Patient not taking: Reported on 04/01/2018 Problem List As Of Date 09/16/2018 Noted Resolved ESOPHAGEAL REFLUX [K21.9] INVALID FOR* MYALGIA AND MYOSITIS NOS [IND2241] INVALID FOR* EXCESSIVE MENSTRUATION [N92.0] INVALID FOR* Folliculitis [L73.9] INVALID FOR* 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) Furf*INVALID FOR* Eczematous Dermatitis [L30.9] INVALID FOR* Exanthem [R21] INVALID FOR* Other Acne [L70.8] INVALID FOR* Gastrocnemius Muscle Tear [S86.119A] INVALID FOR* Actinic Damage//Sun-Damaged Skin [L57.8] INVALID FOR* Open Wnd Site from Cryosurgery (leg) healing [T*INVALID FOR* Fibroid [D21.9] INVALID FOR* Metrorrhagia [N92.1] INVALID FOR* Dysmenorrhea [N94.6] INVALID FOR* Fibromyalgia [M79.7] INVALID FOR* Osteoarthritis [M19.90] INVALID FOR* Pain in joint, multiple sites [M25.50] INVALID FOR* Anemia [D64.9] INVALID FOR* Anxiety with somatization [F41.9, F45.0] INVALID FOR* Pain in joint, shoulder region [M25.519] INVALID FOR* Lumbar degenerative disc disease [M51.36] INVALID FOR* Lumbar radiculopathy [M54.16] INVALID FOR* Lumbago [M54.5] INVALID FOR* Acromioclavicular (joint) (ligament) sprain [S4*INVALID FOR* Ruptured silicone breast implant [T85.49XA] INVALID FOR* Disposition: Return if symptoms worsen or fail to improve. Follow-up and Disposition History Recorded Encounter Status:Closed by JUDY CABA CONSULTANT TEACHER on 09/16/18 PROGRESS Observed: 09/06/2018 Status: COMPLETED Source: [place] 3:49 PM [facility] RE[facility]IT[facility] HNO ID: [id number] Author: Lisa Nicole (Melinda) Lev Service: (none) Author Type: Nurse Practitioner Type: Progress Notes Filed: 09/06/2018 3:55 PM Note Text: Subjective HPI Pt presents with finger infection after splinter x yesterday OTC polysporin ointment with minimal relief. Denies fever, chills, myalgia. ROS All other reviewed and negative other than HPI. PAST MEDICAL HISTORY Diagnosis Date - Anxiety with somatization 03/02/2014 - fibromyalgia - Fibromyalgia 04/24/2012 - Lumbar degenerative disc disease 11/25/2014 - Lumbar radiculopathy 11/25/2014 - Osteoarthritis 04/24/2012 - Osteopenia 08/31/2015 see scanned documents - PMH - PAST MEDICAL HISTORY OF small fibroid mast - PMH - PAST MEDICAL HISTORY OF cyst on ovary - PMH - PAST MEDICAL HISTORY OF low projestrone - PMH - PAST MEDICAL HISTORY OF 04/04/10 torn calf muscle - Ruptured silicone breast implant 04/01/2018 PAST SURGICAL HISTORY Procedure Laterality Date - breast augmentation - LIGATE FALLOPIAN TUBE 1987 Tubal ligation - PAST SURGICAL HISTORY OF 06/26/10 frozen spots on left side - REMOVAL OF TONSILS,<12 Y/O Tonsillectomy - VAGINAL HYSTERECTOMY 09/22/2013 Hysterectomy, vaginal ALLERGIES Adhesive Tape (Rosins); Amoxicillin; Benadryl [Diphenhydramine Hcl]; Crab Meat [Other]; Erythromycin; Keftab [Cephalexin Hcl]; Lorabid [Loracarbef]; Penicillins; Clearlake Oil; Progesterone; Selenium Sulfide; Shellfish; Tetracycline; Tussin [Dextromethorphan Hbr]; Z- Pack [Other] MEDICATIONS mupirocin (BACTROBAN) 2 % ointment Apply 1 application to affected area three times daily for 10 days. OTC NUTRITIONAL SUPPLEMENT Take 2 capsules by mouth once daily. fish oil 640 mg , EPA 350 mg, DHA 450 mg 2 daily castor oil liquid Take 1 Tablespoonful by mouth once daily. topical every night ibuprofen (ADVIL) 200 mg tablet Take 200 mg by mouth as needed. gabapentin (NEURONTIN) 100 mg capsule 100-300mg at bedtime as needed for neuropathic pain COMPOUNDED PRESCRIPTION Take 1 tablet by mouth once daily. Magnesium malich acid, manganese, B1, B6 and vitaminC CINNAMON BARK (CINNAMON ORAL) Take 1 teaspoonful by mouth once daily. Ascorbic Acid (VITAMIN C) Chew Take 500 mg by mouth once daily. FAMILY HISTORY Problem Relation Age of Onset - Breast Cancer Maternal Aunt - Cancer Maternal Aunt ovarian - Cancer Maternal Aunt lung-smoker - Coronary Artery Disease Maternal Uncle - Coronary Artery Disease Maternal Uncle - Coronary Artery Disease Maternal Aunt - Coronary Artery Disease Maternal Aunt - Diabetes Paternal Grandmother obese - Stroke Maternal Aunt - other (blood clots [Other]) Father Social History Substance Use Topics - Smoking status: Former Smoker - Smokeless tobacco: Never Used Comment: NOV 1989 - Alcohol use No Objective Physical Exam Skin: Left thumb palm side puncture josep noted, with surrounding non-blanching erythema, mild swelling and tenderness. No drainage or fluctuance noted. Nursing note and vitals reviewed. ASSESSMENT/PLAN: 1. Infection of skin and subcutaneous tissue - ICD9: 686.9, ICD10: L08.9 - Mild - Bactroban - No lymphangetic streaking, this was defined for patient to watch for and to seek medical care immediately if appears - Follow up for recheck in three days if symptoms are not improving or worsening Prescription instructions reviewed with patient as applicable. Patient advised if symptoms do not improve or if symptoms worsen sooner, to contact their primary care physician. Potential red flag symptoms discussed with the patient. Reviewed appropriate action plan to take if red flag symptoms occur. Patient agreeable to treatment plan. Lisa Wells APRN.CNP CNOV Observed: 09/06/2018 Status: COMPLETED Source: [place] 3:45 PM [facility] REPOSITORY Office Visit ([facility]) BONNIE BERMUDEZ ([id number]) 1960 F Date Time Provider Department 09/06/18 3:45 PM LISA WELLS (MELINDA) [facility] During your visit today, we recorded the following information about you: Temperature Pulse Respiration Blood pressure 98.7 degrees 70/minute 16/minute 120/70 Weight 68.9 kg Lisa Wells APRN.CNP 09/06/2018 3:55 PM Signed Subjective HPI Pt presents with finger infection after splinter x yesterday OTC polysporin ointment with minimal relief. Denies fever, chills, myalgia. ROS All other reviewed and negative other than HPI. PAST MEDICAL HISTORY Diagnosis Date - Anxiety with somatization 03/02/2014 - fibromyalgia - Fibromyalgia 04/24/2012 - Lumbar degenerative disc disease 11/25/2014 - Lumbar radiculopathy 11/25/2014 - Osteoarthritis 04/24/2012 - Osteopenia 08/31/2015 see scanned documents - PMH - PAST MEDICAL HISTORY OF small fibroid mast - PMH - PAST MEDICAL HISTORY OF cyst on ovary - PMH - PAST MEDICAL HISTORY OF low projestrone - PMH - PAST MEDICAL HISTORY OF 04/04/10 torn calf muscle - Ruptured silicone breast implant 04/01/2018 PAST SURGICAL HISTORY Procedure Laterality Date - breast augmentation - LIGATE FALLOPIAN TUBE 1986 Tubal ligation - PAST SURGICAL HISTORY OF 06/26/10 frozen spots on left side - REMOVAL OF TONSILS,<12 Y/O Tonsillectomy - VAGINAL HYSTERECTOMY 09/22/2013 Hysterectomy, vaginal ALLERGIES Adhesive Tape (Rosins); Amoxicillin; Benadryl [Diphenhydramine Hcl]; Crab Meat [Other]; Erythromycin; Keftab [Cephalexin Hcl]; Lorabid [Loracarbef]; Penicillins; Clearlake Oil; Progesterone; Selenium Sulfide; Shellfish; Tetracycline; Tussin [Dextromethorphan Hbr]; Z-Pack [Other] MEDICATIONS mupirocin (BACTROBAN) 2 % ointment Apply 1 application to affected area three times daily for 10 days. OTC NUTRITIONAL SUPPLEMENT Take 2 capsules by mouth once daily. fish oil 640 mg , EPA 350 mg, DHA 450 mg 2 daily castor oil liquid Take 1 Tablespoonful by mouth once daily. topical every night ibuprofen (ADVIL) 200 mg tablet Take 200 mg by mouth as needed. gabapentin (NEURONTIN) 100 mg capsule 100-300mg at bedtime as needed for neuropathic pain COMPOUNDED PRESCRIPTION Take 1 tablet by mouth once daily. Magnesium malich acid, manganese, B1, B6 and vitaminC CINNAMON BARK (CINNAMON ORAL) Take 1 teaspoonful by mouth once daily. Ascorbic Acid (VITAMIN C) Chew Take 500 mg by mouth once daily. FAMILY HISTORY Problem Relation Age of Onset - Breast Cancer Maternal Aunt - Cancer Maternal Aunt ovarian - Cancer Maternal Aunt lung-smoker - Coronary Artery Disease Maternal Uncle - Coronary Artery Disease Maternal Uncle - Coronary Artery Disease Maternal Aunt - Coronary Artery Disease Maternal Aunt - Diabetes Paternal Grandmother obese - Stroke Maternal Aunt - other (blood clots [Other]) Father Social History Substance Use Topics - Smoking status: Former Smoker - Smokeless tobacco: Never Used Comment: NOV 1989 - Alcohol use No Objective Physical Exam Skin: Left thumb palm side puncture josep noted, with surrounding non-blanching erythema, mild swelling and tenderness. No drainage or fluctuance noted. Nursing note and vitals reviewed. ASSESSMENT/PLAN: 1. Infection of skin and subcutaneous tissue - ICD9: 686.9, ICD10: L08.9 - Mild - Bactroban - No lymphangetic streaking, this was defined for patient to watch for and to seek medical care immediately if appears - Follow up for recheck in three days if symptoms are not improving or worsening Prescription instructions reviewed with patient as applicable. Patient advised if symptoms do not improve or if symptoms worsen sooner, to contact their primary care physician. Potential red flag symptoms discussed with the patient. Reviewed appropriate action plan to take if red flag symptoms occur. Patient agreeable to treatment plan. Lisa Wells APRN.CONSULTANT TEACHER Referring Provider: SELF [200] Allergies As of Date: 09/06/2018 Noted Allergy Reaction ADHESIVE TAPE (ROSINS) 02/17/2013 14 - Other: See Comments Comments: makes skin raw AMOXICILLIN 10/05/2005 BENADRYL (DIPHENHYDRAMINE HCL) 10/05/2005 CRAB MEAT [Other] 10/05/2005 ERYTHROMYCIN 10/05/2005 KEFTAB (CEPHALEXIN HCL) 10/05/2005 LORABID (LORACARBEF) 10/05/2005 PENICILLINS 02/17/2013 2 - Rash Comments: hives, redness PINE OIL 03/02/2014 2 - Rash PROGESTERONE 04/17/2012 8 - GI Upset SELENIUM SULFIDE 04/19/2010 SHELLFISH 10/05/2005 TETRACYCLINE 10/31/2009 2 - Rash TUSSIN (DEXTROMETHORPHAN HBR) 10/05/2005 Z-PACK [Other] 10/05/2005 Date Reviewed: 09/06/2018 Reviewed by: Arabella Riggins Ma - Fully Assessed Primary Visit Diagnosis:Infection of skin and subcutaneous tissue [L08.9] Order(s):mupirocin (BACTROBAN) 2 % ointmentApply 1 application to affected area three times daily for 10 days.Disp: 22 gRfl: 0 Prescriptions as of 09/06/2018 Sig: MUPIROCIN 2 % TOPICAL OINTMENT Apply 1 application to affect* OTC NUTRITIONAL SUPPLEMENT Take 2 capsules by mouth once* CASTOR OIL Take 1 Tablespoonful by mouth* IBUPROFEN 200 MG TABLET Take 200 mg by mouth as neede* GABAPENTIN 100 MG CAPSULE 100-300mg at bedtime as neede* Patient not taking: Reported on 04/01/2018 COMPOUNDED PRESCRIPTION Take 1 tablet by mouth once d* CINNAMON ORAL Take 1 teaspoonful by mouth o* ASCORBIC ACID (VITAMIN C) 500* Take 500 mg by mouth once shwetha* Problem List As Of Date 09/06/2018 Noted Resolved ESOPHAGEAL REFLUX [K21.9] INVALID FOR* MYALGIA AND MYOSITIS NOS [KUC5951] INVALID FOR* EXCESSIVE MENSTRUATION [N92.0] INVALID FOR* Folliculitis [L73.9] INVALID FOR* 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) Furf*INVALID FOR* Eczematous Dermatitis [L30.9] INVALID FOR* Exanthem [R21] INVALID FOR* Other Acne [L70.8] INVALID FOR* Gastrocnemius Muscle Tear [S86.119A] INVALID FOR* Actinic Damage//Sun-Damaged Skin [L57.8] INVALID FOR* Open Wnd Site from Cryosurgery (leg) healing [T*INVALID FOR* Fibroid [D21.9] INVALID FOR* Metrorrhagia [N92.1] INVALID FOR* Dysmenorrhea [N94.6] INVALID FOR* Fibromyalgia [M79.7] INVALID FOR* Osteoarthritis [M19.90] INVALID FOR* Pain in joint, multiple sites [M25.50] INVALID FOR* Anemia [D64.9] INVALID FOR* Anxiety with somatization [F41.9, F45.0] INVALID FOR* Pain in joint, shoulder region [M25.519] INVALID FOR* Lumbar degenerative disc disease [M51.36] INVALID FOR* Lumbar radiculopathy [M54.16] INVALID FOR* Lumbago [M54.5] INVALID FOR* Acromioclavicular (joint) (ligament) sprain [S4*INVALID FOR* Ruptured silicone breast implant [T85.49XA] INVALID FOR* Prescriptions ordered this encounter Disp Refills Start End MUPIROCIN 2 % TOPICAL OINTMENT 22 g 0 09/06/2018 09/06/2018 Route: TOPICAL Sig: Apply 1 application to affected area three times daily for 10 days. MUPIROCIN 2 % TOPICAL OINTMENT 22 g 0 09/06/2018 09/16/2018 Route: TOPICAL Sig: Apply 1 application to affected area three times daily for 10 days. Medications Discontinued During This Encounter mupirocin (BACTROBAN) 2 % ointment 22 g 0 09/06/2018 09/06/2018 Route: TOPICAL Sig: Apply 1 application to affected area three times daily for 10 days. Disc: Reason for discontinue is not on file. Disposition: Return if symptoms worsen or fail to improve. Follow-up and Disposition History Recorded Encounter Status:Closed by LISA WELLS on 09/06/18 CERV SPINE 4 OR 5 Observed: 09/01/2018 Status: F Source: [place] VIEWS 4:01 PM [facility] REPOSITORY [facility] Imaging Services [address] [place] [id number] Cerv Spine 4 or 5 Views MR#: [id number] Acct: [id number] Name: BONNIE BERMUDEZ Rep #: [id number] : 1960 F 57 From: Dereje Bray MD PCP: Josep Wilson DO Status: REG CLI Study: Cerv Spine 4 or 5 Views Date of Exam: 09/01/18 Exam# [id number] Ordering Dr: Josep Wilson DO STUDY: X-RAY - CERVICAL SPINE REASON FOR EXAM: Female, 57 years old. Left-sided neck pain TECHNIQUE: 6 view(s) of the cervical spine were obtained. COMPARISON: None FINDINGS: Normal anterior atlantoaxial articulation. Normal odontoid process. Normal cervical lordosis. Normal vertebral bodies and endplates. Normal disc space heights. Normal visualized intervertebral neuroforamina. The soft tissue structures are unremarkable. RAD/Cerv Spine 4 or 5 Views IMPRESSION: Normal x-ray examination of the visualized cervical spine. Electronically Signed: Joseph Bray MD at 16:12 EDT , Service support , CC: Josep Wilson DO 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: Signed HEAD/NECK SOFT TISSUE Observed: 09/01/2018 Status: F Source: [place] 3:29 PM [facility] REPOSITORY [facility] Imaging Services [address] [place] [address] Head/Neck Soft Tissue MR#: [id number] Acct: [id number] Name: BONNIE BERMUDEZ Rep #: [id number] : 1960 F 57 From: Dereje Bray MD PCP: Josep Wilson DO Status: REG CLI Study: Head/Neck Soft Tissue Date of Exam: 09/01/18 Exam# [id number] Ordering Dr: Josep Wilson DO ADDENDUM by Dereje Bray MD on 09/02/18 at 1600 ADDENDUM ADDENDUM: In the findings first sentence, the statement should read: Hypoechoic nonshadowing nodule Electronically Signed: Joseph Bray MD at 16:00 EDT , Service support , 09/02/18 1600 Date cc: Josep Wilson DO * Signed ADDENDUM by Dereje Bray MD on 09/02/18 at 1600 US/Head/Neck Soft Tissue 09/02/18 1607 Date cc: Josep Wilson DO * Signed STUDY: SOFT TISSUE NECK ULTRASOUND REASON FOR EXAM: Female, 57 years old. For palpable lump TECHNIQUE: Sonographic evaluation of the soft tissues of the left neck COMPARISON: None. FINDINGS: There is a 1.5 x 0.5 x 0.4 cm hypoechoic 9 shadowing nodule with fatty center suggesting lymph node. No fluid collection or hyperemia noted. US/Head/Neck Soft Tissue IMPRESSION: Likely benign lymph node corresponding to the palpable left neck lump Electronically Signed: Joseph Bray MD at 16:00 EDT , Service support , CC: Josep Wilson DO 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 [place]: Signed PROGRESS Observed: 04/01/2018 Status: COMPLETED Source: [place] 2:53 PM [facility] REPOSITORY O ID: [id number] Author: Yoni Velazquez III Service: (none) Author Type: Physician Type: Progress Notes Filed: 04/02/2018 5:49 AM Note Text: SUBJECTIVE: This is a 57 year old female that is here today for 1. hx of fibromyalgia for decades 2. ch LOUIS 3. freq. dizziness 4. known ruptured breast implants. Implants have been inserted 35 yrs. She is concerned that she has worse fibromyalgia symptoms due to the silicon gel. She has seen 3 plastic surgeons and has questions regarding safety, infection risk. She presented a case study of a woman who had sx from ruptured silicone gel breast implant. PAST MEDICAL HISTORY Diagnosis Date - Anxiety with somatization 03/02/2014 - fibromyalgia - Fibromyalgia 04/24/2012 - Lumbar degenerative disc disease 11/25/2014 - Lumbar radiculopathy 11/25/2014 - Osteoarthritis 04/24/2012 - Osteopenia 08/31/2015 see scanned documents - PMH - PAST MEDICAL HISTORY OF small fibroid mast - PMH - PAST MEDICAL HISTORY OF cyst on ovary - PMH - PAST MEDICAL HISTORY OF low projestrone - PMH - PAST MEDICAL HISTORY OF 04/04/10 torn calf muscle Current Outpatient Prescriptions on File Prior to Visit: castor oil liquid Take 1 Tablespoonful by mouth once daily. topical every night ibuprofen (ADVIL) 200 mg tablet Take 200 mg by mouth as needed. CINNAMON BARK (CINNAMON ORAL) Take 1 teaspoonful by mouth once daily. Ascorbic Acid (VITAMIN C) Chew Take 500 mg by mouth once daily. OTC NUTRITIONAL SUPPLEMENT Take 2 capsules by mouth once daily. fish oil 640 mg , EPA 350 mg, DHA 450 mg 2 daily gabapentin (NEURONTIN) 100 mg capsule 100-300mg at bedtime as needed for neuropathic pain (Patient not taking: Reported on 04/01/2018 ) COMPOUNDED PRESCRIPTION Take 1 tablet by mouth once daily. Magnesium malich acid, manganese, B1, B6 and vitaminC No current facility-administered medications on file prior to visit. FAMILY HISTORY Problem Relation Age of Onset - Breast Cancer Maternal Aunt - Cancer Maternal Aunt ovarian - Cancer Maternal Aunt lung-smoker - Coronary Artery Disease Maternal Uncle - Coronary Artery Disease Maternal Uncle - Coronary Artery Disease Maternal Aunt - Coronary Artery Disease Maternal Aunt - Diabetes Paternal Grandmother obese - Stroke Maternal Aunt - blood clots [Other] [OTHER] Father Social History Substance Use Topics - Smoking status: Former Smoker - Smokeless tobacco: Never Used Comment: NOV 1989 - Alcohol use No BP 127/89 Pulse 78 Resp 16 Wt 70.3 kg (155 lb) LMP 09/08/2013 BMI 28.81 kg/m? . OBJECTIVE: APPEARANCE Well appearing, alert, in no acute distress, well-hydrated, well nourished., Appearance: well dressed well groomed, cooperative and pleasant Behavior: good eye contact Speech: fluent and coherent Mood: anxious Affect: appropriate Perceptions: none Thought process: goal directed Thought Content: preoccupations with the need to be heard regarding her sx and concerns Intelligence level: normal Insight: good Judgment: good ASSESSMENT: fibromyalgia silicone breast implants, ruptured PLAN: I will discuss with Adrián Velazquez regarding an experienced plastic surgeon Yoni Velazquez III MD EL Observed: 04/01/2018 Status: COMPLETED Source: [place] 2:40 PM [facility] REPOSITORY Office Visit (FAMPWS) BONNIE BERMUDEZ ([id number]) 1960 F Date Time Provider Department 04/01/18 2:40 PM YONI VELAZQUEZ III During your visit today, we recorded the following information about you: Pulse Respiration Blood pressure Weight 78/minute 16/minute 127/89 70.3 kg Yoni Velazquez III MD 04/02/2018 5:49 AM Signed SUBJECTIVE: This is a 57 year old female that is here today for 1. hx of fibromyalgia for decades 2. ch LOUIS 3. freq. dizziness 4. known ruptured breast implants. Implants have been inserted 35 yrs. She is concerned that she has worse fibromyalgia symptoms due to the silicon gel. She has seen 3 plastic surgeons and has questions regarding safety, infection risk. She presented a case study of a woman who had sx from ruptured silicone gel breast implant. PAST MEDICAL HISTORY Diagnosis Date - Anxiety with somatization 03/02/2014 - fibromyalgia - Fibromyalgia 04/24/2012 - Lumbar degenerative disc disease 11/25/2014 - Lumbar radiculopathy 11/25/2014 - Osteoarthritis 04/24/2012 - Osteopenia 08/31/2015 see scanned documents - PMH - PAST MEDICAL HISTORY OF small fibroid mast - PMH - PAST MEDICAL HISTORY OF cyst on ovary - PMH - PAST MEDICAL HISTORY OF low projestrone - PMH - PAST MEDICAL HISTORY OF 04/04/10 torn calf muscle Current Outpatient Prescriptions on File Prior to Visit: castor oil liquid Take 1 Tablespoonful by mouth once daily. topical every night ibuprofen (ADVIL) 200 mg tablet Take 200 mg by mouth as needed. CINNAMON BARK (CINNAMON ORAL) Take 1 teaspoonful by mouth once daily. Ascorbic Acid (VITAMIN C) Chew Take 500 mg by mouth once daily. OTC NUTRITIONAL SUPPLEMENT Take 2 capsules by mouth once daily. fish oil 640 mg , EPA 350 mg, DHA 450 mg 2 daily gabapentin (NEURONTIN) 100 mg capsule 100-300mg at bedtime as needed for neuropathic pain (Patient not taking: Reported on 04/01/2018 ) COMPOUNDED PRESCRIPTION Take 1 tablet by mouth once daily. Magnesium malich acid, manganese, B1, B6 and vitaminC No current facility-administered medications on file prior to visit. FAMILY HISTORY Problem Relation Age of Onset - Breast Cancer Maternal Aunt - Cancer Maternal Aunt ovarian - Cancer Maternal Aunt lung-smoker - Coronary Artery Disease Maternal Uncle - Coronary Artery Disease Maternal Uncle - Coronary Artery Disease Maternal Aunt - Coronary Artery Disease Maternal Aunt - Diabetes Paternal Grandmother obese - Stroke Maternal Aunt - blood clots [Other] [OTHER] Father Social History Substance Use Topics - Smoking status: Former Smoker - Smokeless tobacco: Never Used Comment: NOV 1989 - Alcohol use No BP 127/89 Pulse 78 Resp 16 Wt 70.3 kg (155 lb) LMP 09/08/2013 BMI 28.81 kg/m? . OBJECTIVE: APPEARANCE Well appearing, alert, in no acute distress, well- hydrated, well nourished., Appearance: well dressed well groomed, cooperative and pleasant Behavior: good eye contact Speech: fluent and coherent Mood: anxious Affect: appropriate Perceptions: none Thought process: goal directed Thought Content: preoccupations with the need to be heard regarding her sx and concerns Intelligence level: normal Insight: good Judgment: good ASSESSMENT: fibromyalgia silicone breast implants, ruptured PLAN: I will discuss with Adrián Velazquez regarding an experienced plastic surgeon HEMA Ramirez MD, III MD 04/01/2018 3:16 PM Signed PLAN: I will discuss with Adrián Velazquez regarding an experienced plastic surgeon Yoni Velazquez III MD Referring Provider: SELF [200] Allergies As of Date: 04/01/2018 Noted Allergy Reaction ADHESIVE TAPE (ROSINS) 02/17/2013 14 - Other: See Comments Comments: makes skin raw AMOXICILLIN 10/05/2005 BENADRYL (DIPHENHYDRAMINE HCL) 10/05/2005 CRAB MEAT [Other] 10/05/2005 ERYTHROMYCIN 10/05/2005 KEFTAB (CEPHALEXIN HCL) 10/05/2005 LORABID (LORACARBEF) 10/05/2005 PENICILLINS 02/17/2013 2 - Rash Comments: hives, redness PINE OIL 03/02/2014 2 - Rash PROGESTERONE 04/17/2012 8 - GI Upset SELENIUM SULFIDE 04/19/2010 SHELLFISH 10/05/2005 TETRACYCLINE 10/31/2009 2 - Rash TUSSIN (DEXTROMETHORPHAN HBR) 10/05/2005 Z-PACK [Other] 10/05/2005 Date Reviewed: 04/01/2018 Reviewed by: Jessica ([facility]) ALEJANDRA Fu - Fully Assessed Reason for Visit: Breast implants rupture [Other] Cmt: implanted in 1982 Primary Visit Diagnosis:Ruptured silicone breast implant, sequela [T85.49XS] Prescriptions as of 04/01/2018 Sig: CASTOR OIL Take 1 Tablespoonful by mouth* IBUPROFEN 200 MG TABLET Take 200 mg by mouth as neede* CINNAMON ORAL Take 1 teaspoonful by mouth o* ASCORBIC ACID (VITAMIN C) 500* Take 500 mg by mouth once shwetha* OTC NUTRITIONAL SUPPLEMENT Take 2 capsules by mouth once* GABAPENTIN 100 MG CAPSULE 100-300mg at bedtime as neede* Patient not taking: Reported on 04/01/2018 COMPOUNDED PRESCRIPTION Take 1 tablet by mouth once d* Problem List As Of Date 04/01/2018 Noted Resolved ESOPHAGEAL REFLUX [K21.9] INVALID FOR* MYALGIA AND MYOSITIS NOS [FOS7082] INVALID FOR* EXCESSIVE MENSTRUATION [N92.0] INVALID FOR* Folliculitis [L73.9] INVALID FOR* 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) Furf*INVALID FOR* Eczematous Dermatitis [L30.9] INVALID FOR* Exanthem [R21] INVALID FOR* Other Acne [L70.8] INVALID FOR* Gastrocnemius Muscle Tear [S86.119A] INVALID FOR* Actinic Damage//Sun-Damaged Skin [L57.8] INVALID FOR* Open Wnd Site from Cryosurgery (leg) healing [T*INVALID FOR* Fibroid [D25.9] INVALID FOR* Metrorrhagia [N92.1] INVALID FOR* Dysmenorrhea [N94.6] INVALID FOR* Fibromyalgia [M79.7] INVALID FOR* Osteoarthritis [M19.90] INVALID FOR* Pain in joint, multiple sites [M25.50] INVALID FOR* Anemia [D64.9] INVALID FOR* Anxiety with somatization [F41.9, F45.0] INVALID FOR* Pain in joint, shoulder region [M25.519] INVALID FOR* Lumbar degenerative disc disease [M51.36] INVALID FOR* Lumbar radiculopathy [M54.16] INVALID FOR* Lumbago [M54.5] INVALID FOR* Acromioclavicular (joint) (ligament) sprain [S4*INVALID FOR* Ruptured silicone breast implant [T85.49XA] INVALID FOR* Other instructions from your clinician: PLAN: I will discuss with Adrián Velazquez regarding an experienced plastic surgeon Yoni Velazquez III MD Encounter Status:Closed by YONI VELAZQUEZ III, MD on 04/02/18 CNCO Observed: 02/19/2018 Status: COMPLETED Source: [place] 12:00 AM [facility] REPOSITORY Letter Text Bonnie Bermudez [address] [facility] [address] 02/19/2018 [facility] #: [id number] Dear , Due to a change in the provider's schedule it has been necessary to reschedule your Appointment. Your original appointment was scheduled for 04-07-18 at 2:40 PM with Yoni Velazquez III, M.D. Your new appointment is now scheduled on 04-01-18 at 2:40 PM with Yoni Velazquez III, M.D. If this new appointment is not convenient for you, please contact our office at [phone]. Thank you for choosing the [facility] as your Healthcare Provider . Sincerely, Family Medicine Appointment Office ALLERGIES ALLERGIES DATE TYPE / CODE NAME / CODE REACTION SEVERITY SOURCE 01/08/20 Drug diphenhydramine Other Unknown [place] 15 Allergy/[id number] HCl/[id number]([facility] (SNOMED CT) M) Hospital Repository 01/08/20 Drug cephalexin Rash Unknown [place] 15 Allergy/435659760 monohydrate/Q7042070 [facility] (SNOMED CT) 30(RXNORM) Hospital Repository 01/08/20 Drug Penicillins/[id number] Anaphylaxis Unknown [place] 15 Allergy/793282855 76(RXNORM) [facility] (SNOMED CT) Hospital Repository 01/08/20 Drug tetracycline/[id number] Rash Unknown [place] 15 Allergy/825081467 738(RXNORM) [facility] (SNOMED CT) Hospital Repository 01/08/20 Drug azithromycin/E228195 Rash Unknown [place] 15 Allergy/853140696 635(RXNORM) [facility] (SNOMED CT) Hospital Repository 01/08/20 Drug loracarbef/[id number] Other Unknown [place] 15 Allergy/734942578 7(RXNORM) [facility] (SNOMED CT) Hospital Repository 01/08/20 Drug shellfish Anaphylaxis Unknown [place] 15 Allergy/699599728 derived/T095242621(R [facility] (SNOMED CT) XNORM) Hospital Repository 03/02/20 Plant/629410049(S PINE OIL RASH [place] [address]) [facility] Main [place] Repository 02/18/20 Chemical/96028715 ADHESIVE TAPE OTHER: SEE C [place] 13 6(SNOMED CT) (ROSINS) [facility] Main [place] Repository 02/18/20 Drug PENICILLINS RASH [place] 13 Class/562768163(S [facility] Main NOMED CT) [place] Repository 04/17/20 DRUG PROGESTERONE GI UPSET [place] 12 INGREDI/058333746 Clinic Main (SNOMED CT) [place] Repository 04/19/20 DRUG SELENIUM SULFIDE [place] [facility] INGREDI/812211299 [facility] (SNOMED CT) [place] Repository 10/31/20 DRUG TETRACYCLINE RASH [place] 09 INGREDI/757008198 [facility] (SNOMED CT) [place] Repository 10/05/20 DRUG AMOXICILLIN [place] 05 INGREDI/280283144 Clinic [facility] (SNOMED CT) [place] Repository 10/05/20 DRUG DIPHENHYDRAMINE HCL [place] 05 INGREDI/267671477 [facility] (SNOMED CT) [place] Repository 10/05/20 Miscellaneous OTHER [place] 05 Allergy/031947871 [facility] (SNOMED CT) [place] Repository 10/05/20 DRUG/941830472(SN ERYTHROMYCIN [place] [address]) [facility] [place] Repository 10/05/20 DRUG CEPHALEXIN HCL [place] [facility] INGREDI/912049206 Clinic Main (SNOMED CT) [place] Repository 10/05/20 DRUG LORACARBEF [place] 05 INGREDI/063888851 Clinic Main (SNOMED CT) [place] Repository 10/05/20 Food/214041210(SN SHELLFISH [place] [address]) [facility] [place] Repository 10/05/20 DRUG DEXTROMETHORPHAN HBR [place] 05 INGREDI/389270887 Clinic Main (SNOMED CT) [place] Repository ENCOUNTERS ENCOUNTERS ADMIT/DISCHARGE ACCOUNT ADMITTING ENCOUNTER LOCATION SOURCE NUMBER CLASS 10/21/2018/10/22/20 [id number] Ambulatory [address] Repository 10/21/2018/10/21/20 [id number] Ambulatory [address] ing:PT Repository 10/14/2018 [id number] [facility] ing:HPRAD Repository 10/14/2018/10/14/20 [id number] Ambulatory BMSBuilding:B [address] Repository 09/16/2018/09/16/20 [id number] Ambulatory [address] Repository 09/16/2018/09/17/20 [id number] Ambulatory [address] Repository 09/06/2018/09/08/20 [id number] Ambulatory [address] Repository 09/01/2018 [id number] [facility] ing:OPUS Repository 04/01/2018/04/02/20 [id number] Ambulatory [address] Repository PAYERS PAYERS ENCOUNTER GUARANTOR PAYER SUBSCRIBER SOURCE 10/21/2018 BONNIE Chapa [place] [id number] Insurance:ANTHEMPolic GurneyDOB[facility] [place]: [id number] [id number] Repository [address]Uks: (464) romie Date:5181-25-09CZ [phone] () [address] [place] [address]RJ: 10/21/2018 Secondary NOT GIVENUNK [place] Insurance:SELF PAY [facility] Number: Effective Repository Date:2018-09-16 10/14/2018 BONNIE Chapa [place] [id number] [facility] Gur[facility] Number: [id number] [id number] Repository [address]Fvp: [phone]) romie Date:4420-03-26ET [phone] () [address] [place] [address] 68[address]QB: 10/14/2018 Secondary NOT GIVENUNK [place] Insurance:SELF PAY [facility] Number: Effective Repository Date:2018-10-14 10/14/2018 BONNIE R Primary Tyler C [place] [id number] Insurance:ANTHEMPolic GurneyDOB: [facility] y Number: [id number] [id number] Repository [address]Bqw: (262) romie Date:2576-78-44QN [phone] () [address], [place] [address]DO: 10/14/2018 Secondary NOT GIVENUNK [place] Insurance:SELF PAY [facility] Number: Effective Repository Date:2018-10-13 09/01/2018 BONNIE R Primary Tyler C [place] [id number] Insurance:ANTHEMPolic GurneyDOB: [facility] y Number: [id number], [place] [id number] Repository [address]Wex: (653) romie Date:2182-81-29LL [phone] () [address], [place] [address]XT: 09/01/2018 Secondary NOT GIVENUNK [place] Insurance:SELF PAY [facility] Number: Effective Repository Date:2018-08-27
== END ==
PROVIDERS: Family Provider Family Medicine; PCP Family Medicine; Referring Provider Orthopaedic Surgery; Visit Provider Orthopaedic Surgery
DX: M25.511 Pain in right shoulder (principal)
CPT/HCPCS: 73030

== ENCOUNTER 2018-10-21 09:30 | Outpatient (RCR) | payer BC, SELFPAY ==
--- NOTE | 2018-09-22 10:42 | HP.PTEVAL_ITS ---
Patient's Visit Information BONNIE BERMUDEZ is a 57 year old F referred to Physical Therapy by MORALES Messer with a diagnosis of Right Knee Pain. Date of Evaluation: 09/22/18 Physical Therapist: Eli Bullock - Visit Plan Frequency: 3x /Week Duration: 4 Weeks Plan: Focus on core s/s and LE s/s- caution of Fibro - Subjective Subjective: Patient reports that she had tendonitis in her right foot- usually walks the TM 45 min 4-5 days a week and is now having pain radiating up to the mid thigh. No problems with the elliptical. Hiked last week 25 min and had to hobble out. Has Fibro and torn the right calf prior- does stretching and incorporate her previous PT. Only pain she has is when walking the TM. Pain is in the achilles and radiates to the mid thigh along the medial side. Does not do any leg weights. Normally saves her tennis shoes- [employer] now- no orthotics in her shoes. Wears Dr. Orourke in her boots she mowes in. Worst: 10/10 Best: 0/10. Eases: stop- pain elevates immediately ? Describes the pain as tightness. No injections. Is doing ankle exercises and shows improvement. Had a knee x- ray and they didn?t see anything- no MRI. Feels like she is not getting better. Sleep: disturbed. PMhx: fibro, oa, migraines. Meds: none. 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 - Objective Posture: FH, RS, Increased kyphosis- can correct with verbal cueing but does not maintain. Gait: no deviation noted. Stairs: asc/desc 8? recip with 2 HR- uses HR for propulsion- decreased control with descent. HR/TR: able with pain. SLS: unstable on the right with increased muscle activation. ROM: WLF in all planes. Palpation: tender along medial gastroc- medial joint line and medial quad. Strength: Core: poor, Hip: 4-/5 throughout, Knee: 4+/5, Ankle: 4+/5 throughout. Special Test: LLD: none Pelvic Alignment: WFL - Goals Goal 1:: Patient will be I with HEP and progression Goal Time Frame: 4-6 Weeks Goal 2:: Patient will maintain proper posture t/o tx session to demo increased core s/s. Goal Time Frame: 4-6 Weeks Goal 3:: Patient will demo 5/5 strength in LE where deficit Goal Time Frame: 4-6 Weeks Goal 4:: Patient will report 0/10 pain for 1 week Goal Time Frame: 4-6 Weeks Goal 5:: Rebeccanet will asc/desc 8 stairs recip with 1 HR and good control Goal Time Frame: 4-6 Weeks - Rehabilitation Potential Physical Therapy Diagnosis: Patient presents with hypomobility- she has decreased strength and muscular endurance leading to increased pain with ADL's and recreational activities Rehabilitation Potential: Fair - Anticipated Interventions Patient/Client Instruction: Educate patient on: Benefits of Fitness Program Therapeutic Exercise to Include: Strength training, Endurance training, Balance training, Coordination, Agility training, Body mechanics, Postural training, Flexibilty training, Gait and locomotor training, Dynamic Lumbar Stabilization, Scapular Strength/Stabilization For the Purpose of:: To improve muscle performance and motor function TENS: Yes Cryotherapy (ice pack, ice massage): Yes Thermo therapy (hot pack): Yes Ultrasound (thermal/non thermal): Yes Thank you for the opportunity to evaluate your patient. For Medicare and Medicare HMO plans, please review the plan of care and approve it. It will need to be FAXED BACK to us at [phone] for Medicare purposes. Please let me know if there are questions or concerns regarding this plan of care. Physician Signature: Date:
--- NOTE | 2018-10-21 09:53 | HP.PTDCSUM ---
HP - PT D/C Summary It has been my pleasure to treat BONNIE BERMUDEZ under orders from Judy Caba NP-C, for the diagnosis of Right Knee Pain for a total of 13 visit(s). Discharge Date: Please see the following information for a summary of their discharge status. - Subjective Subjective: Patient reports that she still can't do the TM without pain but she is a lot stronger and likes the exercises. Body works in the lower extremity is her plan as well as strengthening. - Pain RLE Pain Intensity (Out of 10): 0 - Overall Improvement % Improvement: 50 - Objective Objective/Function: Posture: WNL throughout treatment session in hardback chair Gait: no deviation noted. Stairs: asc/desc 8? recip with 1 HR- uses HR with good control HR/TR: able with pain. SLS: 15 sec without LOB ROM: WLF in all planes. Palpation: not tender to touch Strength: Core: poor, Hip: 4+/5 throughout, Knee: 5/5, Ankle: 5/5 throughout. Special Test: LLD: none Pelvic Alignment: WFL - Goals Goal 1:: Patient will be I with [facility] and progression Goal Progress: Goal Met Goal 2:: Patient will maintain proper posture t/o tx session to demo increased core s/s. Goal Progress: Goal Met Goal 3:: Patient will demo 5/5 strength in LE where deficit Goal Progress: Progressing Goal 4:: Patient will report 0/10 pain for 1 week Goal Progress: Progressing Goal 5:: Patinet will asc/desc 8 stairs recip with 1 HR and good control Goal Progress: Goal Met - Plan Plan: Discharge to [facility]- encouraged her to ask if questions arise. - D/C Information If there are questions or concerns regarding this patient's physical therapy, please feel free to call me at [phone]. Thank you for the referral of this patient. Sincerely, Eli Bullock DPT
== END 2018-10-21 19:00 | disposition home or self-care (01) ==
LOC: PT 09:30
PROVIDERS: Family Provider Family Medicine; PCP Family Medicine; Referring Provider Nurse Practitioner Family; Visit Provider Nurse Practitioner Family
DX: M25.561 Pain in right knee (principal)
CPT/HCPCS: 97110; 97161; 97164

== ENCOUNTER → 2018-12-03 16:02 | Outpatient (CLI) | payer BC, SELFPAY ==
--- NOTE | 2018-12-03 16:10 | RAD_ITS ---
STUDY: X-RAY - LUMBAR SPINE REASON FOR EXAM: Female, 58 years old. Trauma. Mid and lower back pain. TECHNIQUE: 5 view(s) of the lumbar spine were obtained. COMPARISON: August 31, 2015. FINDINGS: Normal lumbar lordosis. There is no substantial scoliosis. There is a normal alignment of the vertebrae. Mild loss of vertebral body height at L3 unchanged. Mild disc space narrowing at L2-3 unchanged. The soft tissue structures are unremarkable. RAD/L/S Spine Min 4 Views IMPRESSION: Stable mild degenerative changes of the lumbar spine. Mild compression fracture L3 unchanged. No acute findings. Electronically Signed: Walter Salinas MD at 6:24 EST , Service support ,
--- NOTE | 2018-12-03 16:11 | RAD_ITS ---
STUDY: X-RAY - THORACIC SPINE REASON FOR EXAM: Female, 58 years old. Trauma. Mid and lower back pain. TECHNIQUE: 3 view(s) of the thoracic spine were obtained. COMPARISON: None. FINDINGS: Normal kyphosis of the thoracic spine. There is no substantial scoliosis. Mild loss of vertebral body height at multiple levels in the mid and lower thoracic spine which is probably old. Marginal osteophytes at multiple levels. Normal disc space heights. The soft tissue structures are unremarkable. RAD/Thoracic Spine 3 Views IMPRESSION: Mild multilevel compression fractures in the mid and lower thoracic spine which are probably old. If patient has focal tenderness consider correlation with cross-sectional imaging. Mild degenerative changes. Electronically Signed: Walter Salinas MD at 6:22 EST , Service support ,
== END ==
PROVIDERS: Family Provider Family Medicine; PCP Family Medicine; Referring Provider Family Medicine; Visit Provider Family Medicine
DX: M54.6 Pain in thoracic spine (principal); M54.5 Low back pain
CPT/HCPCS: 72072; 72110

== ENCOUNTER → 2018-12-15 10:05 | Outpatient (CLI) | payer BC, SELFPAY ==
--- NOTE | 2018-12-15 10:10 | NM_ITS ---
CLINICAL: 58-year-old female with reported history of thoracic spine pain. WHOLE BODY 99m Tc MDP RADIONUCLIDE BONE SCINTIGRAPHY COMPARISON: Plain film radiograph reports thoracic and lumbar spine 12/03/2018 FINDINGS: Following the intravenous administration of 26.0 mCi of 99m Tc MDP, whole body bone images reveal: 1. An intense linear focus of increased radiopharmaceutical concentration is defined at the level of the 12th thoracic vertebra. 2. increased tracer concentration is defined in the upper cervical spine posteriorly on the left and right, mid cervical spine posteriorly on the left, acromioclavicular and sternoclavicular compartments of both shoulders, bilateral knee and ankle articulations. 3. The remaining skeletal structures are scintigraphically unremarkable with normal-appearing renal images and urinary bladder activity identified. NM/Bone Scan Whole Body IMPRESSION: 1. The increase in radiopharmaceutical concentration identified in the 12th thoracic vertebra consistent with trauma-compression fracture. In patients less than 65 years of age, increased radiopharmaceutical concentration on bone scintigraphy in uncomplicated documented fracture, may take up to 18 months for complete resolution. (Carlin et al, Seminars of Nuclear Medicine, 13:104, 1983). 2. Degenerative arthritis appears evident in the upper-mid cervical spine, bilateral shoulder, knee and ankle articulations. 3. There is no evidence of additional visualized trauma-fracture on the current examination. Electronically Signed: Rafael Yoder DO at 10:53 EST Tel , Service support ,
== END ==
PROVIDERS: Family Provider Family Medicine; PCP Family Medicine; Referring Provider Family Medicine; Visit Provider Family Medicine
DX: M54.5 Low back pain (principal); M54.6 Pain in thoracic spine
CPT/HCPCS: 78306

== ENCOUNTER → 2018-12-25 14:37 | Outpatient (CLI) | payer BC, SELFPAY ==
--- NOTE | 2018-12-25 14:47 | BD_ITS ---
STUDY: DUAL ENERGY X-RAY ABSORPTIOMETRY / DXA REASON FOR EXAM: Female, 58 years old. The patient is postmenopausal. Loss of height. TECHNIQUE: Bone Mineral Density (BMD) measurements of lumbar spine and bilateral hips were obtained. COMPARISON: Comparison is made with prior study dated October 25, 2015. FINDINGS: Lumbar Spine (L1-L4): g/cm2 (1.169) / T-score (-0.1) / Z-score (0.8) Findings are suggestive of normal bone density with a low fracture risk. Left Femur Total: g/cm2 (0.950) / T-score (-0.5) / Z-score (0.3) Left Femoral Neck: g/cm2 (0.889) / T-score (-1.1) / Z-score (0.0) Right Femur Total: g/cm2 (0.990) / T-score (-0.1) / Z-score (0.6) Right Femoral Neck: g/cm2 (0.927) / T-score (-0.8) / Z-score (0.3) The T-Scores on the most recent prior examination were: Lumbar Spine (L1-L4): There has been worsening of bone density since the previous examination. Left Femur Total: which represents a worsening of 2.6%. Right Femur Total: which represents a worsening of 3.2%. BD/DXA BONE DENS W/VERT FX ASMT IMPRESSION: The patient is considered osteopenic as outlined below according to World Ayan Organization (WHO) criteria with a low fracture risk. There has been worsening of bone density since the previous examination. Reference Information: The T-score is the number of standard deviations above or below the standard which is normal for young adults at their peak bone mineral density. The World Health Organization (WHO) interprets the T-scores as follows: Above -1 Normal bone density Between -1 and -2.5 Osteopenia Equal to / or below -2.5 Osteoporosis As a practical clinical guideline, osteopenia may be graded as follows: Mild -1 through -1.5 Moderate -1.6 through -2.0 Severe -2.1 through -2.4 The Z-score is the number of standard deviations above or below age-matched controls. A Z-score of less than -1.5 would be considered abnormal. References: 1. NIH Osteoporosis and Related Bone Diseases http://www.osteo.org 2. International Society for Clinical Densitometry http://www.iscd.org 3. National Osteoporosis Foundation http://www.nof.org Electronically Signed: Maged Hidalgo MD at 9:57 EST , Service support ,
== END ==
PROVIDERS: Family Provider Family Medicine; PCP Family Medicine; Referring Provider Family Medicine; Visit Provider Family Medicine
DX: M85.80 Other specified disorders of bone density and structure, unspecified site (principal); M48.50XA Collapsed vertebra, not elsewhere classified, site unspecified, initial encounter for fracture
CPT/HCPCS: 77080; 77085

== ENCOUNTER → 2019-01-09 10:44 | Outpatient (CLI) | payer BC, SELFPAY ==
[2019-01-09 12:47] LABS: AST(SGOT) 18 U/L (15-37); Alanine Aminotransfer ALT/SGPT 26 U/L (13-56); Albumin, Serum 3.9 g/dL (3.2-5.0); Alkaline Phosphatase 73 U/L (45-117); Anion Gap 10 (5-15); BUN 21 mg/dL (7-18); BUN/Creat Ratio 28.5 RATIO (10-20); Calcium,Total 9.3 mg/dL (8.5-10.1); Chloride 104 mmol/L (98-107); Creatinine, Serum 0.74 mg/dL (0.55-1.02); EST Glomerular Filtration Rate 87 mL/min (>60); Est Glom Filt Rate - Afr Amer 105 mL/min (>60); Globulin 3.8 g/dL (2.2-4.2); Glucose 83 mg/dL (74-106); Potassium 3.7 mmol/L (3.5-5.1); Protein, Total 7.7 g/dL (6.4-8.2); Sodium Level 140 mmol/L (136-145)
[2019-01-09 12:53] LABS: Vitamin D,25 Hydroxy 23.6 ng/mL (29.95-100.01)
== END ==
PROVIDERS: Family Provider Family Medicine; PCP Family Medicine; Visit Provider Family Medicine
DX: M85.80 Other specified disorders of bone density and structure, unspecified site (principal); R53.83 Other fatigue
CPT/HCPCS: 36415; 80053; 82306

== ENCOUNTER → 2019-06-19 | Outpatient (CLI) | payer BC, SELFPAY ==
--- NOTE | 2019-06-19 09:08 | RAD_ITS ---
STUDY: X-RAY LEFT FOOT, FIFTH TOE REASON FOR EXAM: Female, 58 years old. Pain and swelling following injury. TECHNIQUE: 3 view(s) of the toe were obtained. COMPARISON: None. FINDINGS: Normal visualized metatarsus. Normal metatarsophalangeal (M.T.P) joint. Normal interphalangeal joints. Normal phalanges and interphalangeal joints. Soft tissue swelling. RAD/Toe(s) Min 2 Views IMPRESSION: Soft tissue swelling. Electronically Signed: Maged Hidalgo, at 10:17 EDT , Service support ,
== END | disposition home or self-care (01) ==
LOC: MTRAD 09:07
PROVIDERS: Family Provider Family Medicine; PCP Family Medicine; Referring Provider Family Medicine; Visit Provider Family Medicine
DX: M79.675 Pain in left toe(s) (principal)
CPT/HCPCS: 73660

== ENCOUNTER → 2019-08-10 | Outpatient (CLI) | payer BC, SELFPAY ==
[2019-08-10 12:44] LABS: Vitamin D,25 Hydroxy 34.5 ng/mL (29.95-100.01)
== END | disposition home or self-care (01) ==
LOC: LAB.FUTURE 08:02
PROVIDERS: Family Provider Family Medicine; PCP Family Medicine; Visit Provider Family Medicine
DX: E55.9 Vitamin D deficiency, unspecified (principal)
CPT/HCPCS: 36415; 82306

== ENCOUNTER → 2020-05-12 | Outpatient (CLI) | payer BC, SELFPAY ==
[2019-11-30 15:22] VITALS: BMI 27.4
== END | disposition home or self-care (01) ==
LOC: MTDU 11:23
PROVIDERS: PCP Family Medicine; Referring Provider Family Medicine; Visit Provider Family Medicine
DX: Z11.59 Encounter for screening for other viral diseases (principal)
CPT/HCPCS: 87635; G2023; U0003

== ENCOUNTER → 2020-07-06 12:58 | Outpatient (CLI) | payer BC, SELFPAY ==
[2019-11-30 15:22] VITALS: BMI 27.4
--- NOTE | 2020-07-06 13:24 | MRI_ITS ---
STUDY: BILATERAL BREAST MR WITHOUT CONTRAST REASON FOR EXAM: Female, 59 years old. PAIN , RUPTURE IMPLANT -- pain left breast since chiropractor visit 5 weeks ago, hx bilat silicone ruptures TECHNIQUE: Multi-sequence multi-echo imaging of both breasts was performed with a dedicated breast coil. T1-weighted and T2-weighted images were performed. Routine MRI imaging was obtained without the use of IV contrast. COMPARISON: MRI of the breast dated 08/26/2017 and mammograms dated 08/23/2015 and 04/30/2014 FINDINGS: RIGHT BREAST: The breast tissue is heterogeneously dense. The right breast implant is ruptured. There appears to be extravasation of the silicone along the medial aspect. LEFT BREAST: The breast tissue is heterogeneously dense. The left breast implant is ruptured. There appears to be extravasation of silicone along the medial aspect. There are no enlarged or abnormal lymph nodes. There is no abnormality in the visualized regions of the chest or liver. MRI/MRI BREAST W/O CONT BILAT IMPRESSION: Both breast implants appear to be ruptured. She is past due for her routine yearly mammogram. Screening mammogram is recommended. MRI does not replace mammography. Breast cancer could be present and not detected on a nonenhanced MRI of the breast. CATEGORY: BIRADS Category 0: Incomplete. Need additional imaging evaluation. A letter regarding these results will be sent to the patient by the facility within 30 days. Electronically Signed: Christelle Mast DO at 5:24 EDT Tel , Service support ,
== END ==
PROVIDERS: PCP Family Medicine; Referring Provider Family Medicine; Visit Provider Family Medicine
DX: N64.4 Mastodynia (principal); Z98.82 Breast implant status
CPT/HCPCS: 77047

== ENCOUNTER → 2020-09-26 09:22 | Outpatient (CLI) | payer BC, SELFPAY ==
[2019-11-30 15:22] VITALS: BMI 27.4
[2020-09-26 13:33] LABS: Vitamin D,25 Hydroxy 38.4 ng/mL
[2020-09-26 13:40] LABS: ALB/GLOB Ratio 1.1 RATIO (0.9-2.4); AST(SGOT) 20 U/L (15-37); Alanine Aminotransfer ALT/SGPT 28 U/L (13-56); Albumin, Serum 3.9 g/dL (3.2-5.0); Alkaline Phosphatase 70 U/L (45-117); Anion Gap 7 (5-15); BUN 16 mg/dL (7-18); Calcium,Total 9.4 mg/dL (8.5-10.1); Chloride 106 mmol/L (98-107); Creatinine, Serum 0.89 mg/dL (0.55-1.02); EST Glomerular Filtration Rate 69 mL/min (>60); Est Glom Filt Rate - Afr Amer 84 mL/min (>60); Free T3 3.2 pg/mL (2.18-3.98); Globulin 3.6 g/dL (2.2-4.2); Glucose 89 mg/dL (74-106); Potassium 4.2 mmol/L (3.5-5.1); Protein, Total 7.5 g/dL (6.4-8.2); Sodium Level 138 mmol/L (136-145); T4 Free Direct 1.09 ng/dL (0.76-1.46); Thyroid Stim Hormone (TSH) 1.28 uIU/mL (0.358-3.74)
== END ==
PROVIDERS: PCP Family Medicine; Visit Provider Family Medicine
DX: Z01.818 Encounter for other preprocedural examination (principal); M85.80 Other specified disorders of bone density and structure, unspecified site; E55.9 Vitamin D deficiency, unspecified
CPT/HCPCS: 36415; 80053; 82306; 84439; 84443; 84481

== ENCOUNTER → 2020-09-27 08:15 | Outpatient (CLI) | payer BC, SELFPAY ==
[2019-11-30 15:22] VITALS: BMI 27.4
[2020-09-27 12:16] LABS: Absolute Lymphocyte Count 2.56 X10^3/uL (0.83-4.51); Absolute Neutrophil Count 2.6 X10^3/uL (2.0-7.7); Basophil# 0.03 X10^3/uL; Basophil% 0.5 % (0-1); Eosinophil# 0.12 X10^3/uL; Eosinophils% 2.1 % (0-5); Hematocrit 42.8 % (37-47); Hemoglobin 13.5 g/dL (12.0-15.0); Lymphocyte # 2.56 X10^3/ul (4.0); Lymphocyte % 44.9 % (19-41); Mean Corp Hgb Conc 31.5 g/dL (32-36); Mean Corpuscular Hgb 28.2 pg (27.0-32.0); Mean Corpuscular Volume 89.5 fL (81-99); Mean Platelet Vol. 11.5 fl (6.2-12.0); Monocyte# 0.42 X10^3/uL; Monocyte% 7.4 % (0-10); NRBC Flagged by Analyzer 0 % (0-5); Neutrophil # 2.56 X10^3/uL (2.7-7.7); Neutrophil % 44.9 % (47-70); Platelet Count 279 K/mm3 (150-450); RBC Distribution Width CV 13.6 % (11.6-14.6); RBC Distribution Width SD 44.7 fl (35.1-43.9); Red Blood Count 4.78 M/mm3 (4.2-5.4); White Blood Count 5.7 K/mm3 (4.4-11.0)
== END ==
PROVIDERS: PCP Family Medicine; Visit Provider Family Medicine
DX: Z01.818 Encounter for other preprocedural examination (principal); E55.9 Vitamin D deficiency, unspecified; M85.80 Other specified disorders of bone density and structure, unspecified site
CPT/HCPCS: 85025

== ENCOUNTER → 2020-10-10 08:42 | Outpatient (CLI) | payer BC, SELFPAY ==
[2019-11-30 15:22] VITALS: BMI 27.4
[2020-10-10 12:22] LABS: Absolute Lymphocyte Count 2.21 X10^3/uL (0.83-4.51); Absolute Neutrophil Count 2.4 X10^3/uL (2.0-7.7); Basophil# 0.02 X10^3/uL; Basophil% 0.4 % (0-1); Hematocrit 42.6 % (37-47); Hemoglobin 13.5 g/dL (12.0-15.0); Lymphocyte # 2.21 X10^3/ul (4.0); Lymphocyte % 43.8 % (19-41); Mean Corp Hgb Conc 31.7 g/dL (32-36); Mean Corpuscular Hgb 28.7 pg (27.0-32.0); Mean Corpuscular Volume 90.4 fL (81-99); Mean Platelet Vol. 11.8 fl (6.2-12.0); Monocyte# 0.35 X10^3/uL; Monocyte% 6.9 % (0-10); NRBC Flagged by Analyzer 0 % (0-5); Neutrophil # 2.35 X10^3/uL (2.7-7.7); Neutrophil % 46.7 % (47-70); Platelet Count 270 K/mm3 (150-450); RBC Distribution Width CV 13.8 % (11.6-14.6); RBC Distribution Width SD 45.7 fl (35.1-43.9); Red Blood Count 4.71 M/mm3 (4.2-5.4)
== END ==
PROVIDERS: PCP Family Medicine; Visit Provider Family Medicine
DX: Z01.818 Encounter for other preprocedural examination (principal); N64.4 Mastodynia
CPT/HCPCS: 36415; 85025

== ENCOUNTER → 2020-10-31 17:22 | Outpatient (CLI) | payer BC, SELFPAY ==
[2019-11-30 15:22] VITALS: BMI 27.4
== END ==
PROVIDERS: PCP Family Medicine; Referring Provider Family Medicine; Visit Provider Family Medicine
DX: Z03.818 Encounter for observation for suspected exposure to other biological agents ruled out (principal)
CPT/HCPCS: 87635; C9803; U0003

== ENCOUNTER → 2021-01-30 | Outpatient (CLI) | payer BC, SELFPAY ==
[2019-11-30 15:22] VITALS: BMI 27.4
[2021-01-30 16:17] LABS: Probe Check PASS; Specimen Processing Control PASS
== END | disposition home or self-care (01) ==
LOC: LABSPEC 14:56
PROVIDERS: PCP Family Medicine; Referring Provider Family Medicine; Visit Provider Family Medicine
DX: Z20.822 Contact with and (suspected) exposure to COVID-19 (principal)
CPT/HCPCS: 87635; U0002

== ENCOUNTER → 2022-08-02 | Outpatient (CLI) | payer BC, SELFPAY ==
--- NOTE | 2022-08-02 15:20 | BD_ITS ---
STUDY: DUAL ENERGY X-RAY ABSORPTIOMETRY / DXA REASON FOR EXAM: Female, 61 years old. [id number]. The patient is postmenopausal. TECHNIQUE: Bone Mineral Density (BMD) measurements of lumbar spine and bilateral hips were obtained. COMPARISON: Comparison is made with prior examination of 12/25/2018. FINDINGS: Lumbar Spine (L1-L4): g/cm2 (0.993) / T-score (-0.5) / Z-score (0.9) Findings are suggestive of normal bone density with a low fracture risk. Left Femur Total: g/cm2 (0.845) / T-score (-0.8) / Z-score (0.1) Left Femoral Neck: g/cm2 (0.710) / T-score (-1.3) / Z-score (0.0) Right Femur Total: g/cm2 (0.852) / T-score (-0.7) / Z-score (0.2) Right Femoral Neck: g/cm2 (0.753) / T-score (-0.9) / Z-score (0.4) The T-Scores on the most recent prior examination were: Lumbar Spine (L1-L4): There has been worsening of bone density since the previous examination. Left Femur Total: which represents a worsening of 4.7%. Right Femur Total: which represents a worsening of 7.8%. BD/Dexa Bone Density Study IMPRESSION: The patient is considered osteopenic as outlined below according to World Ayan Organization (WHO) criteria with a low fracture risk. There has been worsening of bone density since the previous examination. Reference Information: The T-score is the number of standard deviations above or below the standard which is normal for young adults at their peak bone mineral density. The World Health Organization (WHO) interprets the T-scores as follows: Above -1 Normal bone density Between -1 and -2.5 Osteopenia Equal to / or below -2.5 Osteoporosis As a practical clinical guideline, osteopenia may be graded as follows: Mild -1 through -1.5 Moderate -1.6 through -2.0 Severe -2.1 through -2.4 The Z-score is the number of standard deviations above or below age-matched controls. A Z-score of less than -1.5 would be considered abnormal. References: 1. NIH Osteoporosis and Related Bone Diseases www osteo.org 2. International Society for Clinical Densitometry www iscd.org 3. National Osteoporosis Foundation www nof.org Electronically Signed: Maged Hidalgo MD at 15:19 EDT ,
== END | disposition home or self-care (01) ==
PROVIDERS: PCP Family Medicine; Visit Provider Family Medicine
DX: Z78.0 Asymptomatic menopausal state (principal); M85.80 Other specified disorders of bone density and structure, unspecified site
CPT/HCPCS: 77080

== ENCOUNTER → 2023-05-06 | Outpatient (CLI) | payer BC, SELFPAY ==
[2023-05-06 12:35] LABS: Glucose 95 mg/dL (74-106)
== END | disposition home or self-care (01) ==
LOC: BFHLAB 08:32
PROVIDERS: PCP Family Medicine; Referring Provider Family Medicine; Visit Provider Family Medicine
DX: Z00.00 Encounter for general adult medical examination without abnormal findings (principal)
CPT/HCPCS: 36415; 82947

== ENCOUNTER 2025-04-04 17:00 | Emergency (ER) | payer BC, SELFPAY ==
[2025-04-04 17:02] VITALS: BP 138/81; PULSE 73; RESP 16; TEMP 36.6; O2SAT 100; BMI 27.8
--- NOTE | 2025-04-04 17:13 | ED.VIS.LOWEX ---
HPI History of Present Illness Chief Complaint: Lower Extremity Injury Narrative Narrative: 64-year-old female presents with injury to her right fourth toe that she sustained earlier prior to arrival. She states that while in her living room jumped out of bed. She was trying to get between that and a piece of furniture to open a window. She had her fourth toe against the wall. She did not fall, hit her head, and she denies other injuries but she has pain at the base of her fourth toe and states is unable to move it very well. [facility] Medical History Migraines History of frequent headaches Fibromyalgia Vision problem Osteoarthritis IBS (irritable bowel syndrome) Hives Frequent headaches UTI (urinary tract infection) Bone fracture Back problem Arthritis Anemia Home Medications ?Medication ?Instructions ?Recorded ?Last Taken ?Type ascorbate calcium (vitamin C) 500 500 mg PO DAILY 11/11/19 Unknown History mg tablet ibuprofen 400 mg tablet 400 mg PO .PRN 11/11/19 Unknown History omega 6-dld-iay-fish oil 1,200 mg cap PO DAILY 11/11/19 Unknown History (144 mg-216 mg) capsule Allergy/AdvReac Type Severity Reaction Status Date / Time dexamethasone (From Decadron) Allergy Severe Anaphylaxis Verified 04/04/25 17:04 Environmental Allergies: Allergy Severe Rash Verified 04/04/25 17:04 Uncoded (pine) erythromycin base Allergy Severe SEVERE Verified 04/04/25 17:04 STOMACH PAIN progesterone Allergy Severe Rash Verified 04/04/25 17:04 selenium sulfide Allergy Severe BODY RASH Verified 04/04/25 17:04 azithromycin (From Zithromax) Allergy Rash Verified 04/04/25 17:04 cephalexin monohydrate (From Allergy Rash Verified 04/04/25 17:04 Keflex) diphenhydramine HCl (From Allergy Other Verified 04/04/25 17:04 Benadryl) loracarbef (From Lorabid) Allergy Other Verified 04/04/25 17:04 Penicillins Allergy Anaphylaxis Verified 04/04/25 17:04 shellfish derived Allergy Anaphylaxis Verified 04/04/25 17:04 tetracycline Allergy Rash Verified 04/04/25 17:04 adhesive tape AdvReac Intermediate RAW SKIN Verified 04/04/25 17:04 cephalexin AdvReac Mild Rash Verified 04/04/25 17:04 Family History Father Anxiety and depression Grandmother Arthritis Osteoporosis Aunt Breast cancer Ovarian cancer Mother Breast cancer Other Cancer Diabetes History of blood clots Severe allergy Surgical History History of right knee surgery History of bilateral breast implants History of dilation and curettage History of hysterectomy History of tubal ligation Social History Smoking Status: Unknown if ever smoked alcohol intake: current details: SPECIAL OCCASIONS MAYBE 4 - 5 TIMES A YEAR substance use type: does not use additional social history: DOES USE IBUPROFEN HAS USED ASPIRIN IN THE PAST BUT NOT FOR THE PAST 30 YEARS ROS ROS ED ROS Narrative Review of systems positive for right foot especially fourth toe pain, difficulty moving fourth toe. She states when she hit it against the wall, she heard/felt a pop or snap. Denies other injury. EXAM Physical Exam Narrative Exam Narrative: GCS 15. ABCs intact. Cardiovascular examination regular rate and rhythm. Lungs clear to auscultation bilaterally. Focused examination of the right foot does reveal mild tenderness to palpation at the base of the right fourth toe with limited range of motion secondary to pain. Palpable dorsalis pedis pulse. No crepitance. Const Vital Signs: 04/04/25 17:02 Temperature 97.9 F Temperature Source Oral Pulse Rate 73 Respiratory Rate 16 Blood Pressure 138/81 H Blood Pressure Mean 100 Pulse Ox 100 Oxygen Delivery Method Room Air MDM MDM MDM Narrative Medical decision making narrative: The differential diagnosis includes but not limited to toe fracture versus dislocation versus fracture dislocation versus contusion. Patient declined any oral analgesics here in the emergency department. She also declined ice pack. X-rays obtained of the right foot and 3 views and interpreted by myself independently. There is a fracture of the proximal phalanx of the right fourth toe. He does not appear intra-articular. No evidence of dislocation. It is slightly deviated towards the right/lateral aspect. I reviewed the radiology report which confirms my independent interpretation and also comments on the minimal displacement. At this point in time, I do feel that she could be discharged. Her toes will be moy taped together, and she was given a postop shoe to be weightbearing as tolerated. She was referred to podiatry on-call, Dr. Lake. I did offer her stronger narcotic analgesics but she declined and prefers [id number] medications. Return instructions to the emergency department were reviewed. Disposition is discharged home in stable condition. Radiography Diagnostic Testing: Clinical Impression(s) from Imaging Studies Foot X-Ray 04/04/25 17:20 IMPRESSION: Minimally displaced fracture of the 4th proximal phalanx. Reading Location: [facility] Discharge Plan Triage Chief Complaint: Lower Extremity Injury ED Provider: Juan Jose Kaiser Dx/Rx/DC Orders Clinical Impression: Closed fracture of fourth toe of right foot, Contusion of foot, right Instructions: ED Fracture, Toe, Closed Prescriptions: No Action ascorbate calcium (vitamin C) 500 mg tablet 500 mg PO DAILY omega 7-lki-sko-fish oil 1,200 (144-216) mg capsule PO DAILY ibuprofen 400 mg tablet 400 mg PO .PRN Primary Care Provider: Josep Wilson Referrals: Hong Lake DPM [Med Staff - Active Staff] - 1 Week Josep Wilson DO [Primary Care Provider] - Activity Restrictions/Additional Instructions: Take [id number] analgesics as needed. Follow-up with podiatry within 1 week. Wear postop shoe for standing or walking. Weightbearing as tolerated. Return to the emergency department with new or worsening symptoms. Print Language: Persian Disposition Disposition: Home, Self Care
--- NOTE | 2025-04-04 17:20 | RAD_ITS ---
PROCEDURE: FOOT MIN 3 VIEWS 04/04/2025 REASON FOR EXAM: TRAUMA TECHNIQUE: 3 views of the right foot. COMPARISON: None FINDINGS: There is a minimally displaced fracture at the proximal aspect of the 4th proximal phalanx. No definite intra-articular extension. Surrounding soft tissue swelling. Plantar heel spur. There are mild degenerative changes at the 1st metatarsophalangeal joint. RAD/Foot min 3 Views IMPRESSION: Minimally displaced fracture of the 4th proximal phalanx. Reading Location: [facility]
[2025-04-04 18:18] VITALS: PULSE 76; RESP 18; TEMP 36.4; O2SAT 98
== END 2025-04-04 18:19 | disposition home or self-care (01) ==
PROVIDERS: Emergency Provider Emergency Medicine; PCP Family Medicine; Visit Provider Emergency Medicine
DX: S92.511A Displaced fracture of proximal phalanx of right lesser toe(s), initial encounter for closed fracture (principal); W22.01XA Walked into wall, initial encounter
CPT/HCPCS: 73630; 99283

== ENCOUNTER → 2025-06-25 | Outpatient (CLI) | payer BC, SELFPAY | END | disposition home or self-care (01) | LOC: MTLAB 11:00 | PROVIDERS: PCP Family Medicine; Referring Provider Family Medicine; Visit Provider Family Medicine | DX: Z91.018 Allergy to other foods (principal) | CPT/HCPCS: 36415; 86003 ==

== ENCOUNTER 2025-06-27 17:59 | Emergency (ER) | payer BC, SELFPAY ==
[2025-06-27 18:01] VITALS: BP 122/80; PULSE 83; RESP 16; TEMP 36.6; O2SAT 100
[2025-06-27 19:24] VITALS: BP 144/78; PULSE 69; RESP 12; O2SAT 100; BMI 28.8
[2025-06-27 20:00] VITALS: BP 147/77; PULSE 66; RESP 12; O2SAT 100
--- OUTSIDE RECORDS SUMMARY | 2025-06-27 20:08 | XMS RPT_ITS | CCD ---
Author Organization [facility] Care Team Providers [place] [facility] Name Role Phone Olive Wilson DO Primary Care Provider ELVIRA POLLOCK JR Referring Unavailable STEVEOLIVE RILEY Primary Care Unavailable ELVIRA POLLOCK JR Referring Unavailable OLIVE WILSON Primary Care Unavailable ELVIRA POLLOCK JR Referring Unavailable OLIVE WILSON Primary Care Unavailable ELVIRA POLLOCK JR Referring Unavailable OLIVE WILSON Primary Care Unavailable Olive Wilson DO Primary Care Provider Olive Wilson DO Primary Care Provider OLIVE WILSON Primary Care Unavailable OLIVE WILSON Referring Unavailable OLIVE WILSON Primary Care Unavailable Dr. Olive Wilson DO Primary Care Provider [phone] Juan Jose Kaiser MD Emergency Provider Juan Jose Kaiser Attending Unavailable Olive Wilson Primary Care Unavailable Olive Wilson Attending Unavailable Olive Wilson Referring Unavailable Olive Wilson Primary Care Unavailable Allergies Allergy Classification Reported Allergen(s) Allergy Type Date of Onset Reaction(s) Facility Adhesive Tape (1 source) Adhesive Tape Substance Allergy 02-18-20 13 Other: See Comments [facility] Work Phone: Anticholinergics (1 source) Scopolamine Drug Allergy 10-11-20 21 Other: See Comments [facility] Cephalosporins (antibiotic) (2 sources) Cephalexin Drug Allergy 10-05-20 05 [facility] Corticosteroids (1 source) Dexamethasone Drug Allergy 10-11-20 21 Anaphylaxis [facility] Work Phone: Dextromethorphan (1 source) Dextromethorphan Drug Allergy 10-05-20 05 [facility] diphenhydrAMINE (1 source) diphenhydrAMINE Drug Allergy 10-05-20 05 [facility] Macrolides (antibiotic) (2 sources) Erythromycin Drug Allergy 10-05-20 05 GI Upset [facility] Progesterone (1 source) Progesterone Drug Allergy 04-17-20 12 GI Upset [facility] Work Phone: selenium sulfide (1 source) selenium sulfide Drug Allergy 04-19-20 10 [facility] Shellfish (1 source) Shellfish Food Allergy 10-05-20 05 [facility] Tetracyclines (antibiotic) (1 source) Tetracycline Drug Allergy 10-31-20 09 Rash [facility] (12 sources) Adhesive Tape; Translations: [ADHESIVE TAPE (ROSINS)] Allergy to substance 02-18-20 13 Other: See Comments [facility] Work Phone: (12 sources) Cephalexin; Translations: [CEPHALEXIN HCL] Drug Allergy 10-05-20 05 [facility] Work Phone: (16 sources) Dexamethasone; Translations: [DEXAMETHASONE] Drug Allergy 10-11-20 21 Anaphylaxis [facility] Work Phone: (12 sources) Dextromethorphan; Translations: [DEXTROMETHORPHAN HBR] Drug Allergy 10-05-20 05 [facility] Work Phone: (16 sources) diphenhydrAMINE; Translations: [DIPHENHYDRAMINE HCL] Drug Allergy 10-05-20 05 Other [facility] Work Phone: (16 sources) Erythromycin; Translations: [ERYTHROMYCIN] Drug Allergy 10-05-20 05 SEVERE STOMACH PAIN [facility] Work Phone: (16 sources) loracarbef; Translations: [LORACARBEF] Drug Allergy 10-05-20 05 Other [facility] Work Phone: (5 sources) Penicillins; Translations: [PENICILLINS] Drug Allergy 02-18-20 13 Rash [facility] Work Phone: (15 sources) Progesterone; Translations: [PROGESTERONE] Drug Allergy 04-17-20 12 GI Upset [facility] Work Phone: Comment on above: SYNTHETIC PROGESTERO NE (12 sources) Scopolamine; Translations: [SCOPOLAMINE] Drug Allergy 10-11-20 21 Other: See Comments [facility] Work Phone: (16 sources) selenium sulfide; Translations: [SELENIUM SULFIDE] Drug Allergy 04-19-20 10 BODY [facility] Work Phone: (12 sources) Shellfish; Translations: [SHELLFISH] Propensity to adverse reactions 10-05-20 05 [facility] Work Phone: (16 sources) Tetracycline; Translations: [TETRACYCLINE] Drug Allergy 10-31-20 09 [facility] (10 sources) CRAB MEAT [Other] Propensity to adverse reactions 10-05-20 05 [facility] Work Phone: (15 sources) Rich Oil; Translations: [PINE OIL] Allergy to substance 03-02-20 14 [facility] (10 sources) Z-PACK [Other] Propensity to adverse reactions 10-05-20 05 [facility] Work Phone: (5 sources) Adhesive Tape; Translations: [adhesive tape] Propensity to adverse reactions 12-12-19 22 RAW SKIN [facility] (3 sources) Amoxicillin Drug Allergy 12-12-19 22 BODY RASH [facility] (4 sources) Azithromycin Drug Allergy 12-12-19 22 [facility] (5 sources) Cephalexin; Translations: [cephalexin monohydrate] Drug Allergy 12-12-19 22 [facility] (4 sources) Cephalexin Drug Allergy 12-12-19 22 [facility] (5 sources) Shellfish; Translations: [shellfish derived] Allergy to substance 12-12-19 22 Anaphylaxis [facility] (1 source) SYNTHETIC PROGESTERONE Allergy to substance 11-30-19 20 [facility] Work Phone: (2 sources) OTHER; Translations: [OTHER] Propensity to adverse reactions (disorder) 10-05-20 05 [facility] Other [place] (3 sources) Penicillins Allergy to substance 12-12-19 22 Anaphylaxis [facility] (3 sources) Environmental Allergies: Uncoded; Translations: [Environmental Allergies: Uncoded] Allergy to substance 08-22-20 22 Rash [facility] Comment on above: PINE OIL = BODY RASH (1 source) Azithromycin Drug Allergy 04-04-20 [facility] (1 source) Cephalexin Drug Allergy 04-04-20 [facility] (1 source) Dexamethasone Drug Allergy 04-04-20 [facility] (1 source) diphenhydrAMINE Drug Allergy 04-04-20 [facility] (1 source) Erythromycin Drug Allergy 04-04-20 [facility] (1 source) loracarbef Drug Allergy 04-04-20 [facility] (1 source) Penicillins Drug allergy (disorder) 04-04-20 [facility] (1 source) Progesterone Drug Allergy 04-04-20 [facility] (1 source) selenium sulfide Drug Allergy 04-04-20 [facility] (1 source) Tetracycline Drug Allergy 04-04-20 [facility] Medications Current Medications Medication Drug Class(es) Dates Sig (Normalized) Sig (Original) ascorbic acid 500 mg chewable tablet (11 sources) Vitamin C take 500 mg by mouth once daily Ascorbic Acid 500 mg chew Take 500 mg by mouth once daily. 0 Active Comment on above: Take 500 mg by mouth once daily. calcium ascorbate 500 mg oral tablet (4 sources) Start: 11-11-2019 take 1 tablet by mouth once daily Ascorbate Calcium (Vitamin C) 500 mg tablet Active 500 mg PO DAILY November 11, 2019 1:00am ibuprofen 400 mg oral tablet (19 sources) Nonsteroidal Anti-inflammatory Drug Start: 11-11-2019 Ibuprofen 400 mg tablet Active 400 mg PO .PRN November 11, 2019 1:00am Start: 01-07-2015 End: 11-30-2019 take 1 tablet by mouth three times daily as needed for pain Ibuprofen 800 MG tablet Discontinued 800 mg PO 3 TIMES DAILY NEEDED as needed for Pain January 07, 2015 1:00am November 30, 2019 4:10pm ibuprofen (MOTRI N) 200 mg tablet Take 200 mg by mouth as needed. 0 Active Comment on above: Take 200 mg by mouth as needed. [place] 9-Kst-Hts-Fish Oil 1,200 (144-216) mg capsule (1 source) Start: 020 [place] 0-Fyl-Jbh-Fish Oil 1,200 (144-216) mg capsule Active NMA PO DAILY November 11, 2019 1:00am omega 3-kgq-rfu-fish oil 1,200 mg (144 mg-216 mg) capsule (3 sources) Start: take 1 capsule by mouth once daily omega 2-qmp-ytb-fish oil 1,200 mg (144 mg-216 mg) capsule Active CAP PO DAILY November 11, 2019 1:00am OTC NUTRITIONAL SUPPLEMENT (11 sources) Start: take 2 capsules by mouth once daily OTC NUTRITIONAL SUPPLEMENT Take 2 capsules by mouth once daily. fish oil 640 mg , EPA 350 mg, DHA 450 mg 2 daily 100 capsule 5 06/29/2015 Active Comment on above: Take 2 capsules by m out once daily. fish oil 640 mg , EPA 350 mg, DHA 450 mg 2 daily pantoprazole 40 mg delayed release oral tablet (8 sources) Proton Pump Inhibitor Start: End: take 1 tablet by mouth once daily pantoprazole DR (PROTONIX) 40 mg tablet Take 1 tablet by mouth once daily. 30 tablet 5 06/20/2022 Active Comment on above: Take 1 tablet by jnaa once daily. sulfamethoxazole 800 mg / trimethoprim 160 mg oral tablet (1 source) Dihydrofolate Reductase Inhibitor Antibacterial, Sulfonamide Antimicrobial Start: End: take 1 tablet by mouth twice daily sulfamethoxazole-tr imethoprim (BACTRIM DS) 800-160 mg per tablet Indications: Skin inflammation Take 1 tablet by mouth two times a day for 7 days. 14 tablet 0 05/03/2024 05/10/2024 Active triamcinolone acetonide 1 mg/ml topical cream (1 source) Corticosteroid Start: End: triamcinolone acetonide (KENALOG) 0.1 % cream Indications: Skin inflammation Apply 1 application to affected area three times a day for 10 days. Apply sparingly to area for rash/itching. 80 g 0 05/03/2024 05/13/2024 Active Problems Active Problems Problem Classification Problem Date Documented Da te Episodic/Chronic Allergic reactions (20 sources) Eczema; Translations: [Dermatitis, unspecified] Onset: 0 02-02-2010 Episodic Anxiety disorders (11 sources) Anxiety; Translations: [Anxiety disorder, unspecified] Onset: 4 03-02-2014 Chronic Complication of device; implant or graft (19 sources) Rupture of breast implant; Translations: [Leakage of breast prosthesis and implant, initial encounter] Onset: 8 04-01-2018 Episodic Comment on above: ruptured bilateral s ilicone subglandular breast implants Esophageal disorders (12 sources) Gastroesophageal reflux disease; Translations: [Gastro-esophageal reflux disease without esophagitis] Onset: 6 10-29-2006 Chronic Fracture of lower limb (1 source) Closed fracture of phalanx of foot; Translations: [Displaced unspecified fracture of right lesser toe(s), initial encounter for closed fracture] 04-04-2025 Episodic Immunity disorders (4 sources) Autoimmune disease; Translations: [Other specified disorders involving the immune mechanism, not elsewhere classified] 12-02-2019 Chronic Menstrual disorders (20 sources) Excessive and frequent menstruation; Translations: [Excessive and frequent menstruation with regular cycle] Onset: 8 11-20-2007 Chronic Nonmalignant breast conditions (8 sources) Pain of breast; Translations: [Mastodynia] 12-02-2019 Episodic Osteoarthritis (11 sources) Osteoarthritis; Translations: [Unspecified osteoarthritis, unspecified site] Onset: 2 04-24-2012 Chronic Other bone disease and musculoskeletal deformities (12 sources) Segmental and somatic dysfunction; Translations: [Segmental and somatic dysfunction of cervical region] 12-05-2021 Episodic Other connective tissue disease (15 sources) Fibromyalgia; Translations: [Fibromyalgia] Onset: 2 04-24-2012 Episodic Other connective tissue disease (1 source) Pain in right foot; Translations: [Pain in right foot] Onset: 5 Episodic Other fractures (4 sources) Compression fracture ; Translations: [Compression fracture] 12-05-2021 Episodic Comment on above: T12, L3 Other gastrointestinal disorders (1 source) Esophageal dysphagia; Translations: [Other dysphagia] Episodic Other lower respiratory disease (4 sources) Rib pain; Translations: [Pleurodynia] 11-30-2019 Episodic Other non-traumatic joint disorders (15 sources) Multiple joint pain; Translations: [Pain in unspecified joint] Onset: 3 04-17-2013 Episodic Other screening for suspected conditions (not mental disorders or infectious disease) (1 source) Patient encounter status; Translations: [Encounter for screening for malignant neoplasm of colon] Episodic Residual codes; unclassified (4 sources) History of bilateral breast implants; Translations: [Breast implant status] 12-02-2019 Chronic Comment on above: ruptured bilateral s ilicone subglandular breast implants Residual codes; unclassified (4 sources) Family history of breast cancer; Translations: [Family history of malignant neoplasm of breast] 11-30-2019 Episodic Screening and history of mental health and substance abuse codes (4 sources) Ex-smoker; Translations: [Personal history of nicotine dependence] 11-30-2019 Episodic Skin and subcutaneous tissue infections (1 source) Inflammatory dermatosis; Translations: [Local infection of the skin and subcutaneous tissue, unspecified] 05-03-2024 Episodic Spondylosis; intervertebral disc disorders; other back problems (15 sources) Degeneration of lumbar intervertebral disc; Translations: [Other intervertebral disc degeneration, lumbar region] Onset: 5 11-25-2014 Chronic Spondylosis; intervertebral disc disorders; other back problems (20 sources) Lumbar radiculopathy; Translations: [Radiculopathy, lumbar region] Onset: 5 11-25-2014 Episodic Superficial injury; contusion (1 source) Contusion of right foot; Translations: [Contusion of right foot, initial encounter] 04-04-2025 Episodic Past or Other Problems Problem Classification Problem Date Documented Date Episodic/Chronic Deficiency and other anemia (11 sources) Anemia; Translations: [Anemia, unspecified] Onset: 08-31-2013 08-31-2013 Episodic Mycoses (11 sources) Malassezia infection of skin; Translations: [Pityriasis versicolor] Onset: 02-02-2010 02-02-2010 Episodic Other and unspecified benign neoplasm (11 sources) Leiomyoma; Translations: [Benign neoplasm of connective and other soft tissue, unspecified] Onset: 08-14-2010 08-14-2010 Episodic Other connective tissue disease (11 sources) Muscle pain; Translations: [Myalgia and myositis, unspecified] Onset: 10-29-2006 10-29-2006 Episodic Other injuries and conditions due to external causes (11 sources) Open wound; Translations: [Other injury of unspecified body region, initial encounter] Onset: 07-31-2010 07-31-2010 Episodic Other non-traumatic joint disorders (11 sources) Shoulder joint pain; Translations: [Pain in unspecified shoulder] Onset: 10-11-2014 10-11-2014 Episodic Other non-traumatic joint disorders (11 sources) Pain in right knee; Translations: [Pain in joint, lower leg] Onset: 05-20-2020 05-20-2020 Episodic Other skin disorders (11 sources) Folliculitis; Translations: [Follicular disorder, unspecified] Onset: 02-02-2010 02-02-2010 Episodic Other skin disorders (11 sources) Eruption; Translations: [Rash and other nonspecific skin eruption] Onset: 02-02-2010 02-02-2010 Episodic Other skin disorders (11 sources) Acne; Translations: [Other acne] Onset: 02-02-2010 02-02-2010 Episodic Sprains and strains (20 sources) Rupture of gastrocnemius tendon; Translations: [Strain of other muscle(s) and tendon(s) of posterior muscle group at lower leg level, unspecified leg, initial encounter] Onset: 04-21-2010 04-21-2010 Episodic Results Test Name Value Interpretation Reference Range Facility Emergency Department Summary on 04-04-2025 Emergency Department Summary [facility] Medical Records Department [address] [place] [address] Emergency Department Summary 04/04/25 MR#: [id number] Acct: [id number] Name: BONNIE BERMUDEZ Rep #: [id number] : 1960 64 From: Juan Jose Kaiser MD PCP: Dr. Olive Wilson, DO Status:REG ER Location: ED HPI History of Present Illness Chief Complaint: Lower Extremity Injury Narrative Narrative: 64-year-old female presents with injury to her right fourth toe that she sustained earlier prior to arrival. She states that while in her living room jumped out of bed. She was trying to get between that and a piece of furniture to open a window. She had her fourth toe against the wall. She did not fall, hit her head, and she denies other injuries but she has pain at the base of her fourth toe and states is unable to move it very well. [facility] Medical History Migraines History of frequent headaches Fibromyalgia Vision problem Osteoarthritis IBS (irritable bowel syndrome) Hives Frequent headaches UTI (urinary tract infection) Bone fracture Back problem Arthritis Anemia Home Medications ???Medication ???Instructions ???Recorded ???Last Taken ???Type ascorbate calcium (vitamin C) 500 500 mg PO DAILY 11/11/19 Unknown History mg tablet ibuprofen 400 mg tablet 400 mg PO .PRN 11/11/19 Unknown Hi story omega 9-pke-ddb-fish oil 1,200 mg cap PO DAILY 11/11/19 Unknown His tory (144 mg-216 mg) capsule Allergy/AdvReac Type Severity Reaction Status Date / Time dexamethasone (From Decadron) Allergy Severe Anaphylaxis Verified 04/04/25 17:04 Environmental Allergies: Allergy Severe Rash Verified 04/04/25 17:04 Uncoded (pine) erythromycin base Allergy Severe SEVERE Verified 04/04/25 17:04 STOMACH PAIN progesterone Allergy Severe Rash Verified 04/04/25 17:04 selenium sulfide Allergy Severe BODY RASH Verified 04/04/25 17:04 azithromycin (From Zithromax) Allergy Rash Verified 04/04/25 17:04 cephalexin monohydrate (From Allergy Rash Verified 04/04/25 17:04 Keflex) diphenhydramine HCl (From Allergy Other Verified 04/04/25 17:04 Benadryl) loracarbef (From Lorabid) Allergy Other Verified 04/04/25 17:04 Penicillins Allergy Anaphylaxis Verified 04/04/25 17:04 shellfish derived Allergy Anaphylaxis Verified 04/04/25 17:04 tetracycline Allergy Rash Verified 04/04/25 17:04 adhesive tape AdvReac Intermediate RAW SKIN Verified 04/04/25 17:04 cephalexin AdvReac Mild Rash Verified 04/04/25 17:04 Family History Father Anxiety and depression Grandmother Arthritis Osteoporosis Aunt Breast cancer Ovarian cancer Mother Breast cancer Other Cancer Diabetes History of blood clots Severe allergy Surgical History History of right knee surgery History of bilateral breast implants History of dilation and curettage History of hysterectomy History of tubal ligation Social History Smoking Status: Unknown if ever smoked alcohol intake: current details: SPECIAL OCCASIONS MAYBE 4 - 5 TIMES A YEAR substance use type: does not use additional social history: DOES USE IBUPROFEN HAS USED ASPIRIN IN THE PAST BUT NOT FOR THE PAST 30 YEARS ROS ROS ED ROS Narrative Review of systems positive for right foot especially fourth toe pain, difficulty moving fourth toe. She states when she hit it against the wall, she heard/felt a pop or snap. Denies other injury. EXAM Physical Exam Narrative Exam Narrative: GCS 15. ABCs intact. Cardiovascular examination regular rate and rhythm. Lungs clear to auscultation bilaterally. Focused examination of the right foot does reveal mild tenderness to palpation at the base of the right fourth toe with limited range of motion secondary to pain. Palpable dorsalis pedis pulse. No crepitance. Const Vital Signs: 04/04/25 17:02 Temperature 97.9 F Temperature Source Oral Pulse Rate 73 Respiratory Rate 16 Blood Pressure 138/81 H Blood Pressure Mean 100 Pulse Ox 100 Oxygen Delivery Method Room Air MDM MDM MDM Narrative Medical decision making narrative: The differential diagnosis includes but not limited to toe fracture versus dislocation versus fracture dislocation versus contusion. Patient declined any oral analgesics here in the emergency d epartment. She also declined ice pack. X-rays obtained of the right foot and 3 views and interpreted by myself independently. There is a fracture of the proximal phalanx of the right fourth toe. He does not appear intra-articular. No evidence of dislocation. It is slightly deviated towards the right/lateral aspect. I reviewed the radiol (more content not included)... Normal [facility] Foot min 3 Viewson 5 Foot min 3 Views [facility] Imaging Services [address] [place] [address] Foot min 3 Views MR#: [id number] Acct: [id number] Name: BONNIE BERMUDEZ Rep #: [id number] : 1960 F 64 From: Chandler Rudolph MD PCP: Dr. Olive Wilson, DO Status: REG ER Study: Foot min 3 Views Date of Exam: 04/04/25 Exam# [id number] Ordering Dr: Juan Jose Kaiser MD PROCEDURE: FOOT MIN 3 VIEWS 04/04/2025 REASON FOR EXAM: TRAUMA TECHNIQUE: 3 views of the right foot. COMPARISON: None FINDINGS: There is a minimally displaced fracture at the proximal aspect of the 4th proximal phalanx. No definite intra-articular extension. Surrounding soft tissue swelling. Plantar heel spur. There are mild degenerative changes at the 1st metatarsophalangeal joint. RAD/Foot min 3 Views IMPRESSION: Minimally displaced fracture of the 4th proximal phalanx. Reading Location: [facility] CC: Dr. Juan Jose Kaiser MD; Dr. Olive Wilson DO Powder Core Tester: Signed Normal [facility] CNOVon 05-03-2024 CNOV Office Visit (UCWSTR ) BONNIE BERMUDEZ ([id number]) 1960 F Date Time Provider Department 05/03/24 2:15 PM IGSEL ALEJANDRE [facility] During your visit today, we recorded the following information about you: Temperature Pulse Respiration Blood pressure 98.7 degrees 78/minute 16/minute 124/70 Weight 68.1 kg Gisel Alejandre APRN.SWIMMING POOL ATTENDANT 05/03/2024 2:49 PM Signed Subjective HPI HPI Bonnie Bermudez is a 63 year old female who presents today for CC of possible bite. This started 5 days ago/worsening. Has tried otc medication for relief. Symptoms are worsened by nothing. Denies fever. Itching, nonpainful .Patient presents with: Derm Problem: redness, circular area on left bicep x 5 days, itching PAST MEDICAL HISTORY Diagnosis Date Anxiety with somatization 03/02/2014 fibromyalgia Fibromyalgia 04/24/2012 Lumbar degenerative disc disease 11/25/2014 Lumbar radiculopathy 11/25/2014 Osteoarthritis 04/24/2012 Osteopenia 08/31/2015 see scanned documents PMH - PAST MEDICAL HISTORY OF small fibroid mast PMH - PAST MEDICAL HISTORY OF cyst on ovary PMH - PAST MEDICAL HISTORY OF low projestrone PMH - PAST MEDICAL HISTORY OF 04/04/10 torn calf muscle Ruptured silicone breast implant 04/01/2018 PAST SURGICAL HISTORY Procedure Laterality Date breast augmentation LIG/TRNSXJ FLP TUBE ABDL/VAG APPR UNI/BI 11/04/1986 Tubal ligation PAST SURGICAL HISTORY OF 06/26/2010 frozen spots on left side PT ED PLASTIC SURGERY Breast implants removed TONSILLECTOMY PRIMARY/SECONDARY Tonsillectomy VAGINAL HYSTERECTOMY UTERUS 250 GM/< 09/22/2013 Hysterectomy, vaginal ALLERGIES Adhesive Tape (Rosins), Benadryl [Diphenhydramine Hcl], Decadron [Dexamethasone], Erythromycin, Keftab [Cephalexin Hcl], Lorabid [Loracarbef], Rich Oil, Progesterone, Scopolamine, Selenium Sulfide, Shellfish, Tetracycline, Tussin [Dextromethorphan Hbr], and Z-Pack [Azithromycin] MEDICATIONS OTC NUTRITIONAL SUPPLEMENT Take 2 capsules by mouth once daily. fish oil 640 mg , EPA 350 mg, DHA 450 mg 2 daily ibuprofen (MOTRIN) 200 mg tablet Take 200 mg by mouth as needed. Ascorbic Acid 500 mg chew Take 500 mg by mouth once daily. sulfamethoxazole-trimet hoprim (BACTRIM DS) 800-160 mg per tablet Take 1 tablet by mouth two times a day for 7 days. triamcinolone acetonide (KENALOG) 0.1 % cream Apply 1 application to affected area three times a day for 10 days. Apply sparingly to area for rash/itching. pantoprazole DR (PROTONIX) 40 mg tablet Take 1 tablet by mouth once daily. (Patient not taking: Reported on 07/11/2022) FAMILY HISTORY Problem Relation Age of Onset other (blood clots [Other]) Father Diabetes Paternal Grandmother obese Breast Cancer Maternal Aunt Cancer Maternal Aunt ovarian Cancer Maternal Aunt lung-smoker Coronary Artery Disease Maternal Aunt Coronary Artery Disease Maternal Aunt Stroke Maternal Aunt Coronary Artery Disease Maternal Uncle Coronary Artery Disease Maternal Uncle Colon Cancer No Family History Social History Tobacco Use Smoking status: Former Smokeless tobacco: Never Tobacco comments: NOV 1989 Substance Use Topics Alcohol use: No Drug use: No ROS Objective Blood pressure 124/70, pulse 78, temperature 37.1 ?C (98.7 ?F), resp. rate 16, weight 68.1 kg (150 lb 2.1 oz), last menstrual period 09/08/2013, SpO2 99%. Physical Exam Constitutional: General: She is not in acute distress. Appearance: She is not toxic-appearing or diaphoretic. HENT: Head: Normocephalic and atraumatic. Pulmonary: Effort: Pulmonary effort is normal. No accessory muscle usage or respiratory distress. Skin: Neurological: Mental Status: She is alert and oriented to person, place, and time. ASSESSMENT/PLAN: 1. Skin inflammation - ICD9: 686.9, ICD10: L08.9 Start steroid cream today If s/s worsen fill/take atb rx. F/u with pcp for continued s/s - SULFAMETHOXAZOLE 800 MG-TRIMETHOPRIM 160 MG TABLET - TRIAMCINOLONE ACETONIDE 0.1 % TOPICAL CREAM Gisel Alejandre APRN.SWIMMING POOL ATTENDANT Referring Provider: SELF [[id number]] Allergies As of Date: 05/03/2024 Noted Allergy Reaction ADHESIVE TAPE (ROSINS) 02/17/2013 14 - Other: See Comments Comments: makes skin raw BENADRYL (DIPHENHYDRAMINE HCL) 10/05/2005 DECADRON (DEXAMETHASONE) 10/11/2021 10 - Anaphylaxis Comments: 09/19/21 Skin test positive to dexamethasone. ERYTHROMYCIN 10/05/2005 KEFTAB (CEPHALEXIN HCL) 10/05/2005 LORABID (LORACARBEF) 10/05/2005 PINE OIL 03/02/2014 2 - Rash PROGESTERONE 04/17/2012 8 - GI Upset SCOPOLAMINE 10/11/2021 14 - Other: See Comments Comments: 09/19/21 History of perioperative anaphylaxis with scopolamine as possible culprit. SELENIUM SULFIDE 04/19/2010 SHELLFISH 10/05/2005 TETRACYCLINE 10/31/2009 2 - Rash TUSSIN (DEXTROMETHORPHAN HBR) 10/05/2005 Z-PACK (AZITHROMYCIN) 05/03/2024 8 - GI Upset Date Reviewed: 05/03/2024 Reviewed (more content not included)... Normal [facility] MRI LUMBAR SPINE WO IVCONon 11-29-2023 MRI LUMBAR SPINE WO IVCON * * *Final Report* * * DATE OF EXAM: Nov 29 2023 2:17PM [facility] [id number] - MRI LUMBAR SPINE WO IVCON / PROCEDURE REASON: m54.16 * * * * Physician Interpretation * * * * EXAMINATION: MRI LUMBAR SPINE WO IVCON CLINICAL HISTORY: m54.16. Radiculopathy, lumbar region TECHNIQUE: Routine lumbosacral spine MR protocol without gadolinium. MQ: [id number] COMPARISON: None. RESULT: Counting reference: Lumbosacral junction. For the purposes of this report, L4-5 is considered the level of the iliac crest and assume there are 5 lumbar-type vertebrae. Anatomic variant: None. Localizer images: Intrahepatic T2 hyperintense presumed cyst and/or cavernous hemangioma. Scattered colonic diverticula. Alignment: Alignment is anatomic. Bone marrow signal/fracture: No evidence of pathologic marrow infiltration. No evidence of acute fracture. Chronic anterior wedge deformities of the T12 and L3 vertebra with approximately 10-20% anterior vertebral body height loss at these levels. Prominent Schmorl's nodes within the T12 and L3 superior endplates. Multilevel degenerative disc disease with disc ossification and mild to moderate height loss at L1-L5. Conus: The conus terminates at L1 and is within normal limits of morphology and signal. Normal course and caliber of the descending cauda equina nerve roots. Paraspinal soft tissues: Paraspinal soft tissues are within normal limits. Lower thoracic spine: Visualized lower thoracic canal and foramina are patent. L1-L2: Canal and foramina are patent. L2-L3: Mild spinal canal narrowing secondary to shallow disc bulge, bilateral ligamentum flavum infolding, and bilateral facet arthropathy. Bilateral foramina remain patent. L3-L4: Mild spinal canal and mild bilateral neural foraminal narrowing secondary to diffuse disc bulge, bilateral ligamentum flavum hypertrophy, and bilateral facet arthropathy. L4-L5: Moderate bilateral neural foraminal narrowing secondary to diffuse disc bulge, bilateral ligamentum flavum infolding, and bilateral facet arthropathy. Canal remains patent. L5-S1: Canal and foramina are patent Sacrum and iliac wings: The visualized sacrum and iliac wings are within normal limits. IMPRESSION: Multilevel degenerative spondylosis with up to mild spinal canal narrowing at L2-L4 and L2 moderate bilateral neural foraminal narrowing at L4-L5. Anatomic Lumbar Variant: None. L4-5 is considered the level of the iliac crest and assume there are 5 lumbar-type vertebrae. Powder Core Tester: JARRED Transcribe Date/Time: Nov 29 2023 2:52P Dictated by : REGAN DOOLEY MD This examination was interpreted and the report reviewed and electronically signed by: REGAN DOOLEY MD on Nov 29 2023 3:10PM EST [id number] Normal [facility] Basophil percentageOrdered B y: Olive Wilson on 05-06-2023 Glucose [Mass/Vol] 95 mg/dL 74-106 [place] [facility] XR RIBS 2V AP/OBL LTon 03-22 [facility] US CHEST WALL/SOFT TISSUEon 10-18-2020 US CHEST WALL/SOFT TISSUE * * *Final Report* * * DATE OF EXAM: Oct 18 2020 2:45PM [id number] - US CHEST WALL/SOFT TISSUE / PROCEDURE REASON: Complications of Mechanical Breast Prosthesis * * * * Physician Interpretation * * * * RESULT: INDICATION: Preop evaluation prior to implant removal surgery tomorrow Complications of Mechanical Breast Prosthesis EXAMINATION: Bilateral breast implant evaluation. Lymphatic drainage pathway evaluation of both breasts. US CHEST WALL/SOFT TISSUE Note: This is not a cancer screening exam. COMPARISON:Patient has original 38-year-old implants in place. These are silicone. Patient had an MRI a few months ago at outside institution. Patient was told implants are ruptured. RESULT: Implant location: Bilateral retropectoral Capsular calcification: Mild bilateral Capsular contracture: Moderate bilateral Intracapsular rupture: Both implants are ruptured. Left implant is predominantly intracapsular with a tiny amount of silicone granuloma identified adjacent to the implant capsule at approximately 4:00. Extracapsular rupture: Extracapsular rupture noted on the right with fairly extensive silicone granuloma present with gel cysts in the lower inner quadrant and upper inner quadrants. Silicone granuloma: Silicone granuloma present on the right extending from approximately 6:30 position 3 the 3:00 position to the 12:00 position in the lower inner quadrant and upper inner quadrant. Multiple small cysts are identified within the granuloma. General cysts are noted extending from approximately 3:00 through 12:00. Superiorly, granuloma and gel cyst deep to the pectoral muscle. Silicone adenopathy: Absent/none Silicone mapping procedure performed bilaterally. Silicone granuloma was outlined on the right extending from approximately 6:30 position through the medial aspect of the breast to the 12:00 position. Tiny amount of silicone granuloma mapped on the left at the 4:00 position immediately adjacent to the implant capsule. IMPRESSION: Bilateral retropectoral implants. Both implants are ruptured. Extracapsular rupture present bilaterally. Tiny amount of silicone granuloma noted on the left at the 4:00 position immediately adjacent to the capsule. Large amount of silicone granuloma present on the right in the lower inner and upper inner quadrants extending from approximately 6:30 position through 12:00. Multiple gel cyst identified on the right within the granuloma. These are noted predominantly in the 3:00 to 12:00 positions. Transcribed Using Voice Recognition Transcribe Date/Time: Oct 18 2020 2:46P Dictated by: ELEN CORBIN MD This examination was interpreted and the report reviewed and electronically signed by: ELEN CORBIN MD on Oct 18 2020 2:52PM EST [id number] [facility] Vital Signs Date Time Vital Sign Value Performing Clinician Facility 04-04-2025 18:18-0400 Body temperature 97.5 [degF] Dr. Olive Wilson DO Work Phone: [facility] 04-04-2025 18:18-0400 Heart rate 76 /min Dr. Olive Wilson DO Work Phone: [facility] 04-04-2025 18:18-0400 Respiratory rate 18 /min Dr. Olive Wilson DO Work Phone: [facility] 04-04-2025 18:18-0400 SaO2% (BldA) [Mass fraction] 98 % Dr. Olive Wilson DO Work Phone: [facility] 04-04-2025 17:02-0400 Body height 156.[address] Olive Wilson DO Work Phone: [facility] 04-04-2025 17:02-0400 Body mass index (BMI) [Ratio] 27.8 kg/m2 Dr. Olive Wilson DO Work Phone: [facility] 04-04-2025 17:02-0400 Body weight 67.[address] Olive Wilson DO Work Phone: [facility] 04-04-2025 17:02-0400 Diastolic blood pressure 81 mm[Hg] Dr. Olive Wilson DO Work Phone: [facility] 04-04-2025 17:02-0400 Systolic blood pressure 138 mm[Hg] Dr. Olive Wilson DO Work Phone: [facility] 05-03-2024 14:13-0400 Body mass index (BMI) [Ratio] 27.91 kg/m2 Gisel Alejandre SLIDE DEVELOPER.SWIMMING POOL ATTENDANT Work Phone: [facility] 05-03-2024 14:13-0400 Body temperature 98.71 [degF] Gisel Alejandre SLIDE DEVELOPER.SWIMMING POOL ATTENDANT Work Phone: [facility] 05-03-2024 14:13-0400 Body weight 68.1 kg Gisel Alejandre SLIDE DEVELOPER.SWIMMING POOL ATTENDANT Work Phone: [facility] 05-03-2024 14:13-0400 Diastolic blood pressure 70 mm[Hg] Gisel Alejandre SLIDE DEVELOPER.SWIMMING POOL ATTENDANT Work Phone: [facility] 05-03-2024 14:13-0400 Heart rate 78 /min Gisel Alejandre SLIDE DEVELOPER.SWIMMING POOL ATTENDANT Work Phone: [facility] 05-03-2024 14:13-0400 Respiratory rate 16 /min Gisel Alejandre SLIDE DEVELOPER.SWIMMING POOL ATTENDANT Work Phone: [facility] 05-03-2024 14:13-0400 SaO2% (BldA) [Mass fraction] 99 % Gisel Alejandre SLIDE DEVELOPER.SWIMMING POOL ATTENDANT Work Phone: [facility] 05-03-2024 14:13-0400 Systolic blood pressure 124 mm[Hg] Gisel Alejandre SLIDE DEVELOPER.SWIMMING POOL ATTENDANT Work Phone: [facility] 07-11-2022 14:20-0400 Body height 156.2 cm Kenyon Tellez PA-C Work Phone: [facility] 07-11-2022 14:20-0400 Body weight 68.49 kg Kenyon Tellez PA-C Work Phone: [facility] 07-11-2022 14:20-0400 Diastolic blood pressure 70 mm[Hg] Kenyon Tellez PA-C Work Phone: [facility] 07-11-2022 14:20-0400 Heart rate 80 /min Kenyon Tellez PA-C Work Phone: [facility] 07-11-2022 14:20-0400 SaO2% (BldA) [Mass fraction] 100 % Kenyon Tellez PA-C Work Phone: [facility] 07-11-2022 14:20-0400 Systolic blood pressure 115 mm[Hg] Kenyon Tellez PA-C Work Phone: [facility] 06-20-2022 14:27-0400 Body height 156.2 cm Karlie Saleh MD Work Phone: [facility] 06-20-2022 14:27-0400 Body weight 72.12 kg Karlie Saleh MD Work Phone: [facility] 06-20-2022 14:27-0400 Diastolic blood pressure 82 mm[Hg] Karlie Saleh MD Work Phone: [facility] 06-20-2022 14:27-0400 Heart rate 92 /min Karlie Saleh MD Work Phone: [facility] 06-20-2022 14:27-0400 Systolic blood pressure 134 mm[Hg] Karlie Saleh MD Work Phone: [facility] Encounters Encounter Date Encounter Type Care Provider Facility Start: 06-25-2025 ambulatory Olive Wilson Facility: [facility] Start: 04-04-2025 End: 04-04-2025 Emergency department patient visit Dr. Olive Wilson DO Work Phone: -Emergency Department Work Phone: Start: 05-03-2024 End: 05-03-2024 ambulatory OLIVE WILSON Facility:[facility] Start: 05-03-2024 End: 05-03-2024 Patient encounter procedure Gisel Alejandre APRN.CNP Work Phone: [facility] Comment on above: Skin inflammation (P rimary Dx) Start: 11-29-2023 End: 11-29-2023 ambulatory [facility] Facility:[facility] Start: 05-06-2023 End: 05-06-2023 ambulatory [facility] Work Phone: Start: 05-06-2023 End: 05-06-2023 Patient encounter procedure [facility] Start: 08-06-2022 End: 08-06-2022 ambulatory Andre Lund PT [facility] Comment on above: Radiculopathy, cervi ace region (Primary Dx) Start: 08-02-2022 End: 08-02-2022 ambulatory [facility] Work Phone: Start: 08-02-2022 End: 08-02-2022 Patient encounter procedure [facility]-Outpatient Bone Densitometry Start: 08-01-2022 End: 08-01-2022 ambulatory Andre Lund PT [facility] Comment on above: Radiculopathy, cervi ace region (Primary Dx) Start: 07-21-2022 End: 07-21-2022 ambulatory ELVIRA POLLOCK JR Facility:[facility] Start: 07-21-2022 End: 07-21-2022 ambulatory Covid Vaccine Frvw COVID Vaccine Start: 07-19-2022 End: 07-19-2022 ambulatory Andre Lund PT [facility] Comment on above: Radiculopathy, cervi ace region Start: 07-17-2022 End: 07-17-2022 Subsequent hospital visit by physician Xr [facility] Work Phone: Radiology Comment on above: Radiculopathy, cervi ace region [M54.12] Start: 07-11-2022 End: 07-11-2022 Patient encounter procedure Kenyon Tellez PA-C Work Phone: [facility] [place] Comment on above: Radiculopathy, cervi ace region (Primary Dx) Start: 06-20-2022 End: 06-20-2022 Patient encounter procedure Karlie Saleh MD Work Phone: [facility] [place] Comment on above: Gastroesophageal ref lux disease, unspecified whether esophagitis present (Primary Dx); Esophageal dysphagia; Colon cancer screening Start: 04-14-2022 End: 04-14-2022 ambulatory ELVIRA POLLOCK JR Facility:[facility] Start: 04-14-2022 End: 04-14-2022 ambulatory Covid Vaccine Frvw COVID Vaccine Start: 03-22-2022 End: 03-22-2022 Subsequent hospital visit by physician Xr [facility] Work Phone: Radiology Start: 02-26-2022 ambulatory Deloris momin SLIDE DEVELOPER.SUPERVISOR INSPECTING Work Phone: Allergy Comment on above: Oral Drug Challenge (Ondansetron) Start: 11-09-2021 End: 11-10-2021 ambulatory ELVIRA POLLOCK JR Facility:[facility] Start: 10-19-2021 End: 10-20-2021 ambulatory ELVIRA POLLOCK Facility:[facility] Procedures Date Procedure Procedure Detail Performing Clinician Start: 04-04-2025 X-ray of foot, three or more views Dr. Olive Wilson DO Work Phone: Start: 08-02-2022 Dual energy X-ray absorptiometry Start: 07-21-2022 PFIZER-BIONTECH COVI D-19 BIVALENT BOOSTER VACCINE, AGE 12+ YR Elvira Pollock MD Work Phone: Start: 07-06-2022 Adult depression scr eening assessment Kenyon Tellez PA-C Work Phone: Start: 04-14-2022 PFIZER-BIONTECH COVI D-19 VACCINE, AGE 12+ YR ([place] TOP) Elvira Pollock MD Work Phone: Start: 03-22-2022 Radex ribs unilatera l 2 views [facility] Provider Start: 01-01-2019 Adult depression scr eening assessment Deloris Peck SLIDE DEVELOPER.SUPERVISOR INSPECTING Work Phone: Start: 10-05-2014 Lipid 1996 panel - S nguyễn or Plasma Gisel Alejandre SLIDE DEVELOPER.SWIMMING POOL ATTENDANT Work Phone: Start: 04-26-2014 Mammography Deloris stoll SLIDE DEVELOPER.SUPERVISOR INSPECTING Work Phone: Plan of Treatment Date Care Activity Detail Author Start: 07-05-2024 Influenza vaccination Influenz a Vaccine (Season Ended) [facility] Start: 11-04-2023 Behavioral Health Screening Behavioral Health Screening [facility] Start: 07-06-2023 Adult depression screening assessment DEPRESSION SCREENING [facility] Start: 11-20-2022 COVID-19 VACCINE (4 - Booster for Pfizer series) COVID-19 VACCINE (4 - Booster for Pfizer series) [facility] Start: 2022 RSV Vaccine (1 - 1-d ose 60+ series) RSV Vaccine (1 - 1-dose 60+ series) [facility] Start: 08-14-2022 COVID-19 VACCINE (4 - Booster for Pfizer series) COVID-19 VACCINE (4 - Booster for Pfizer series) [facility] Start: 07-05-2022 Influenza vaccination C [facility] Start: 04-09-2022 COVID-19 VACCINE (3 - Booster for Pfizer series) COVID-19 VACCINE (3 - Booster for Pfizer series) [facility] Start: 11-04-2021 DEPRESSION ASSESSMENT DEPRESSION ASS ESSMENT [facility] Start: 01-01-2020 Adult depression screening assessment DEPRESSION SCREENING [facility] Start: 10-05-2019 Lipid panel Lipid Screening [facility] Start: 10-05-2019 LIPID SCREEN LIPID SCREEN [facility] Start: 02-05-2018 PAP TESTING PAP TESTING [facility] Start: 03-02-2017 DIABETES SCREEN DIABETES SCREEN [facility] Start: 03-02-2017 Diabetes Screening Diabetes Screenin g [facility] Start: 02-06-2016 Screening for malign ant neoplasm of cervix Cervical Cancer Screening [facility] Start: 04-26-2015 Mammography MAMMOGRAM [facility] Start: 04-26-2015 Screening for malign ant neoplasm of breast Mammogram Screening [facility] Start: 2012 SHINGRIX VACCINE (1 of 2) SHINGRIX VACCINE (1 of 2) [facility] Start: 2007 COLOGUARD (FIT-DNA) COLOGUARD (FIT-D NA) [facility] Start: 2007 Colonoscopy COLONOSCOPY [facility] Start: 2007 COLORECTAL CANCER SCREENING COLORECTAL CANCER SCREENING [facility] Start: [address] COLONOGRAPHY [facility] Start: 2007 FECAL OCCULT BLOOD FECAL OCCULT BLOO D [facility] Start: 2007 Screening for malign ant neoplasm of colon [facility] Start: 2007 SIGMOIDOSCOPY SIGMOIDOSCOPY [facility] Start: 1992 HPV TESTING HPV TESTING [facility] Start: 1981 Urine microalbumin profile [facility] Start: 1980 HEPATITIS C SCREENING HEPATITIS C [facility] Start: 1980 Hepatitis C screening Hepatitis C [facility] Start: 1980 HIV SCREENING HIV SCREENING [facility] Start: 1980 HIV screening HIV Screening [facility] End: 06-20-2023 EGD DIAGNOSTIC EGD DIAGNOSTIC Endoscopy Routine Gastroesophageal reflux disease, unspecified whether esophagitis present Esophageal dysphagia Colon cancer screening 1 Occurrences starting 06/20/2022 until 06/20/2023 [facility] Work Phone: Comment on above: 1 Occurrences starti ng 06/20/2022 until 06/20/2023 Patient Education ED Fracture, Toe, Close d [facility] Work Phone: Patient referral [facility] Work Phone: End: 08-10-2023 Radex spine cervical 4 or 5 views XR CERV OTHER 4V AP/LAT/FLX/EXT Radiology Routine Radiculopathy, cervical region 1 Occurrences starting 07/11/2022 until 08/10/2023 [facility] Work Phone: Comment on above: 1 Occurrences starti ng 07/11/2022 until 08/10/2023 End: 07-17-2022 Radex spine cervical 4 or 5 views [facility] Work Phone: Comment on above: 1 Occurrences starti ng 07/17/2022 until 07/17/2022 [facility] Immunizations Immunization Date Immunization Notes Care Provider Luis johansen 07-21-2022 COVID-19 vaccine, ag e 12+ yr, bivalent booster (PFIZER-BIONTECH) Covid [facility] Work Phone: 04-14-2022 COVID-19 vaccine, ag e 12+ yr (PFIZER-BIONTECH - [place] TOP) [facility] 11-09-2021 COVID-19 vaccine, ag e 12+ yr (PFIZER-BIONTECH - [place] TOP) Deloris Peck SLIDE DEVELOPER.SUPERVISOR INSPECTING Work Phone: [facility] 10-19-2021 COVID-19 vaccine, ag e 12+ yr (PFIZER-BIONTECH - [place] TOP) Deloris Peck SLIDE DEVELOPER.SUPERVISOR INSPECTING Work Phone: [facility] Work Phone: 09-16-2018 influenza virus vaccine, unspecified formulation Gisel Alejandre SLIDE DEVELOPER.SWIMMING POOL ATTENDANT Work Phone: [facility] Payers Date Payer Category Payer Self-pay [id number] 2013 Unknown [employer] CARD PPO OOS [id number] 2013-Present [phone] [id number] [place] [address] PPO [id number] 2013 Unknown [employer] BLUE CARD PPO OOS [id number] 2013-Present [phone] [id number] [place] [address] PPO [id number] 2013 [id number] Unknown [id number] Unknown [id number] Social History Date Type Detail Facility Start: 06-20-2022 Tobacco smoking stat us NHIS Ex-smoker [facility] Start: 10-03-2021 End: 05-03-2024 Alcohol intake Current non-drinker of alcohol (finding) [facility] Start: 1960 Sex Assigned At Female [facility] Start: 04-04-2022 End: 07-16-2022 Exposure to SARS-CoV-2 (event) Not sure [facility] History of tobacco use Current smoker [facility] Start: 06-20-2022 Tobacco use and exposure Smokeless tobacco non-user [facility] Start: 06-20-2022 Tobacco Comment NOV [address] [facility] Start: 01-02-2022 End: 04-04-2025 Tobacco smoking status NHIS Unknown if ever smoked [facility] Start: 11-28-2022 End: 05-03-2024 History of Social function [facility] Start: 11-28-2022 End: 05-03-2024 Tobacco use panel [facility] Adult Depression Screening Assessment 0 [facility] Start: 01-08-2019 Gender identity Identifies as female gender (finding) [facility] Start: 01-08-2019 Sexual orientation Heterosexual (fin ding) [facility] Goals Date Patient Goal Desired Activity /State Clinical Notes 03-22-2022 to 04-04-2025 Note Date & Type Note Facility 04-04-2025 Discharge summary [facility] 04-04-2025 Radiology Diagnostic study note [facility] Imaging Services [address] [place], [place] [id number] Foot min 3 Views MR#: [id number] Acct: [id number] Name: BONNIE BERMUDEZ Rep #: [id number] : 1960 F 64 From: Amanda Rudolph MD PCP: Dr. Olive Wilson, DO Status: REG ER Study:Foot min 3 Views Date of Exam: 11/28 Exam# [id number] Ordering Dr: Juan Jose Kaiser MD PROCEDURE: FOOT MIN 3 VIEWS 04/04/2025 REASON FOR EXAM: TRAUMA TECHNIQUE: 3 views of the right foot. COMPARISON: None FINDINGS: There is a minimally displaced fracture at the proximal aspect of the 4th proximal phalanx. No definite intra-articular extension. Surrounding soft tissue swelling. Plantar heel spur. There are mild degenerative changes at the 1st metatarsophalangeal joint. RAD/Foot min 3 Views IMPRESSION: Minimally displaced fracture of the 4th proximal phalanx. Reading Location: [facility] CC: Dr. Juan Jose Kaiser MD; Dr. Olive Wilson DO ~ Powder Core Tester: Signed [facility] 04-04-2025 Discharge summary Note Date/Time April 04, 2025 5:58pm [facility] Medical Records Department [address] [place] [address] Emergency Department Summary 04/04/25 MR#: [id number] Acct: [id number] Name: BONNIE BERMUDEZ Rep #:[id number] : 1960 64 From: Juan Jose Kaiser MD PCP: Dr. Olive Wislon DO Status:REG ER Location: ED HPI History of Present Illness Chief Complaint: Lower Extremity Injury Narrative Narrative: 64-year-old female presents with injury to her right fourth toe that she sustained earlier prior to arrival. She states that while in her living room jumped out of bed. She was trying to get between that and a piece of furniture to open a window. She had her fourth toe against the wall. She did not fall, hit her head, and she denies other injuries but she has pain at the base of her fourth toe and states is unable to move it very well. [facility] Medical History Migraines History of frequent headaches Fibromyalgia Vision problem Osteoarthritis IBS (irritable bowel syndrome) Hives Frequent headaches UTI (urinary tract infection) Bone fracture Back problem Arthritis Anemia Home Medications ?Medication ?Instructions ?Recorded ?Last Taken ?Type ascorbate calcium (vitamin C) 500 500 mg PO DAILY 06/23 Unknown History mg tablet ibuprofen 400 mg tablet 400 mg PO .PRN 11/11/19 Unkn own History omega 7-ncw-gdu-fish oil 1,200 mg cap PO DAILY 0 Unknown History (144 mg-216 mg) capsule Allergy/AdvReac Type Severity Reaction Status Date / Time dexamethasone (From Decadron) Allergy Severe Anaphylaxis Verified 04/04/25 17:04 Environmental Allergies: Allergy Severe Rash Verified 04/04/25 17:04 Uncoded (pine) erythromycin base Allergy Severe SEVERE Verified 04/04/25 17:04 STOMACH PAIN progesterone Allergy Severe Rash Verified 04/04/25 17:04 selenium sulfide Allergy Severe BODY RASH Verified 04/04/25 17:04 azithromycin (From Zithromax) Allergy Rash Verified 04/04/25 17:04 cephalexin monohydrate (From Allergy Rash Verified 04/04/25 17:04 Keflex) diphenhydramine HCl (From Allergy Other Verified 04/04/25 17:04 Benadryl) loracarbef (From Lorabid) Allergy Other Verified 04/04/25 17:04 Penicillins Allergy Anaphylaxis Verified 04/04/25 17:04 shellfish derived Allergy Anaphylaxis Verified 04/04/25 17:04 tetracycline Allergy Rash Verified 04/04/25 17:04 adhesive tape AdvReac Intermediate RAW SKIN Verified 04/04/25 17:04 cephalexin AdvReac Mild Rash Verified 04/04/25 17:04 Family History Father Anxiety and depression Grandmother Arthritis Osteoporosis Aunt Breast cancer Ovarian cancer Mother Breast cancer Other Cancer Diabetes History of blood clots Severe allergy Surgical History History of right knee surgery History of bilateral breast implants History of dilation and curettage History of hysterectomy History of tubal ligation Social History Smoking Status: Unknown if ever smoked alcohol intake: current details: SPECIAL OCCASIONS MAYBE 4 - 5 TIMES A YEAR substance use type: does not use additional social history: DOES USE IBUPROFEN HAS USED ASPIRIN IN THE PAST BUT NOT FOR THE PAST 30 YEARS ROS ROS ED ROS Narrative Review of systems positive for right foot especially fourth toe pain, difficultymoving fourth toe. She states when she hit it against the wall, she heard/felt a pop or snap. Denies other injury. EXAM Physical Exam Narrative Exam Narrative: GCS 15. ABCs intact. Cardiovascular examination regular rate and rhythm. Lungs clear to auscultation bilaterally. Focused examination of the right foot does reveal mild tenderness to palpation at the base of the right fourth toe with limited range of motion secondary to pain. Palpable dorsalis pedis pulse. No crepitance. Const Vital Signs: 04/04/25 17:02 Temperature 97.9 F Temperature Source Oral Pulse Rate 73 Respiratory Rate 16 Blood Pressure 138/81 H Blood Pressure Mean 100 Pulse Ox 100 Oxygen Delivery Method Room Air MDM MDM MDM Narrative Medical decision making narrative: The differential diagnosis includes but not limited to toe fracture versus dislocation versus fracture dislocation versus contusion. Patient declined any oral analgesics here in the emergency department. She also declined ice pack. X-rays obtained of the right foot and 3 views and interpreted by myself independently. There is a fracture of the proximal phalanx of the right fourth toe. He does not appear intra-articular. No evidence of dislocation. It is slightly deviated towards the right/lateral aspect. I reviewed the radiology report which confirms my independent interpretation and also comments on the minimal displacement. At this point in time, I do feel that she could be discharged. Her toes will bebuddy taped together, and she was given a postop shoe to be weightbearing as tolerated. She was referred to podiatry on-call, Dr. Lake. I did offer her stronger narcotic analgesics but she declined and prefers [id number] medications. Return instructions to the emergency department were reviewed. Disposition is discharged home in stable condition. Radiography Diagnostic Testing: Clinical Impression(s) from Imaging Studies Foot X-Ray 04/04/25 17:20 IMPRESSION: Minimally displaced fracture of the 4th proximal phalanx. Reading Location: [id number] Discharge Plan Triage Chief Complaint: Lower Extremity Injury ED Provider: Juan Jose Kaiser Dx/Rx/DC Orders Clinical Impression: Closed fracture of fourth toe of right foot, Contusion of foot, right Instructions: ED Fracture, Toe, Closed Prescriptions: No Action ascorbate calcium (vitamin C) 500 mg tablet 500 mg PO DAILY omega [id number]-fish oil 1,200 (144-216) mg capsule PO DAILY ibuprofen 400 mg tablet 400 mg PO .PRN Primary Care Provider: Olive Wilson Referrals: Hong Lake DPM [Med Staff - Active Staff] - 1 Week Olive Wilson DO [Primary Care Provider] - Activity Restrictions/Additional Instructions: Take [id number] analgesics as needed. Follow-up with podiatry within 1 week. Wear postop shoe for standing or walking. Weightbearing as tolerated. Return to the emergency department with new or worsening symptoms. Print Language: Persian Disposition Disposition: Home, Self Care What to do if you have Problems For any increased pain, shortness of breath, bleeding, nausea or vomiting, chestpain, or any unexpected problems, contact your Primary Care Provider. Call [facility] ([phone]) or report to the closest Emergency Room. Call 911 if necessary. 04/04/25 [id number] <Electronically signed by Juan Jose Kaiser MD> Cosigner Signature (if applicable): CC: Dr. Olive Wilson DO ~ Signed [facility] Work Phone: 1(631) 726-618906-30-2024 NoteHNO ID: [id number] Author: GISEL ALEJANDRE APRN.SWIMMING POOL ATTENDANT Service: ? Author Type: Nurse Practitioner Type: Progress Notes Filed: 05/03/2024 14:49 Note Text: Subjective HPI HPI Bonnie Bermudez is a 63 year old female who presents today for CC of possible bite. This started 5 days ago/worsening. Has tried otc medication for relief. Symptoms are worsened by nothing. Denies fever. Itching, nonpainful .Patient presents with: Derm Problem: redness, circular area on left bicep x 5 days, itching PAST MEDICAL HISTORY Diagnosis Date Anxiety with somatization 03/02/2014 fibromyalgia Fibromyalgia 04/24/2012 Lumbar degenerative disc disease 11/25/2014 Lumbar radiculopathy 11/25/2014 Osteoarthritis 04/24/2012 Osteopenia 08/31/2015 see scanned documents PMH - PAST MEDICAL HISTORY OF small fibroid mast PMH - PAST MEDICAL HISTORY OF cyst on ovary PMH - PAST MEDICAL HISTORY OF low projestrone PMH - PAST MEDICAL HISTORY OF 04/04/10 torn calf muscle Ruptured silicone breast implant 04/01/2018 PAST SURGICAL HISTORY Procedure Laterality Date breast augmentation LIG/TRNSXJ FLP TUBE ABDL/VAG APPR UNI/BI 11/04/1986 Tubal ligation PAST SURGICAL HISTORY OF 06/26/2010 frozen spots on left side PT ED PLASTIC SURGERY Breast implants removed TONSILLECTOMY PRIMARY/SECONDARY Tonsillectomy VAGINAL HYSTERECTOMY UTERUS 250 GM/< 09/22/2013 Hysterectomy, vaginal ALLERGIES Adhesive Tape (Rosins), Benadryl [Diphenhydramine Hcl], Decadron [Dexamethasone], Erythromycin, Keftab [Cephalexin Hcl], Lorabid [Loracarbef], Rich Oil, Progesterone, Scopolamine, Selenium Sulfide, Shellfish, Tetracycline, Tussin [Dextromethorphan Hbr], and Z-Pack [Azithromycin] MEDICATIONS OTC NUTRITIONAL SUPPLEMENT Take 2 capsules by mouth once daily. fish oil 640 mg , EPA 350 mg, DHA 450 mg 2 daily ibuprofen (MOTRIN) 200 mg tablet Take 200 mg by mouth as needed. Ascorbic Acid 500 mg chew Take 500 mg by mouth once daily. sulfamethoxazole-trimethoprim (BACTRIM DS) 800-160 mg per tablet Take 1 tablet by mouth two times a day for 7 days. triamcinolone acetonide (KENALOG) 0.1 % cream Apply 1 application to affected area three times a day for 10 days. Apply sparingly to area for rash/itching. pantoprazole DR (PROTONIX) 40 mg tablet Take 1 tablet by mouth once daily. (Patient not taking: Reported on 07/11/2022) FAMILY HISTORY Problem Relation Age of Onset other (blood clots [Other]) Father Diabetes Paternal Grandmother obese Breast Cancer Maternal Aunt Cancer Maternal Aunt ovarian Cancer Maternal Aunt lung-smoker Coronary Artery Disease Maternal Aunt Coronary Artery Disease Maternal Aunt Stroke Maternal Aunt Coronary Artery Disease Maternal Uncle Coronary Artery Disease Maternal Uncle Colon Cancer No Family History Social History Tobacco Use Smoking status: Former Smokeless tobacco: Never Tobacco comments: NOV 1989 Substance Use Topics Alcohol use: No Drug use: No ROS Objective Blood pressure 124/70, pulse 78, temperature 37.1 ?C (98.7 ?F), resp. rate 16, weight 68.1 kg (150 lb 2.1 oz), last menstrual period 09/08/2013, SpO2 99%. Physical Exam Constitutional: General: She is not in acute distress. Appearance: She is not toxic-appearing or diaphoretic. HENT: Head: Normocephalic and atraumatic. Pulmonary: Effort: Pulmonary effort is normal. No accessory muscle usage or respiratory distress. Skin: Neurological: Mental Status: She is alert and oriented to person, place, and time. ASSESSMENT/PLAN: 1. Skin inflammation - ICD9: 686.9, ICD10: L08.9 Start steroid cream today If s/s worsen fill/take atb rx. F/u with pcp for continued s/s - SULFAMETHOXAZOLE 800 MG-TRIMETHOPRIM 160 MG TABLET - TRIAMCINOLONE ACETONIDE 0.1 % TOPICAL CREAM Gisel Alejandre APRN.[facility] History of Present illness Narrative* Gisel Alejandre APRN.SWIMMING POOL ATTENDANT - 05/03/2024 2:33 PM EDT Images from the original note were not included. Subjective HPI HPI Bonnie Bermudez is a 63 year old female who presents today for CC of possible bite. This started 5 days ago/worsening. Has tried otc medication for relief. Symptoms are worsened by nothing. Denies fever. Itching, nonpainful .Patient presents with: Derm Problem: redness, circular area on left bicep x 5 days, itching PAST MEDICAL HISTORY Diagnosis Date Anxiety with somatization 03/02/2014 fibromyalgia Fibromyalgia 04/24/2012 Lumbar degenerative disc disease 11/25/2014 Lumbar radiculopathy 11/25/2014 Osteoarthritis 04/24/2012 Osteopenia 08/31/2015 see scanned documents PMH - PAST MEDICAL HISTORY OF small fibroid mast PMH - PAST MEDICAL HISTORY OF cyst on ovary PMH - PAST MEDICAL HISTORY OF low projestrone PMH - PAST MEDICAL HISTORY OF 04/04/10 torn calf muscle Ruptured silicone breast implant 04/01/2018 PAST SURGICAL HISTORY Procedure Laterality Date breast augmentation LIG/TRNSXJ FLP TUBE ABDL/VAG APPR UNI/BI 11/04/1986 Tubal ligation PAST SURGICAL HISTORY OF 06/26/2010 frozen spots on left side PT ED PLASTIC SURGERY Breast implants removed TONSILLECTOMY PRIMARY/SECONDARY <AGE 14 Tonsillectomy VAGINAL HYSTERECTOMY UTERUS 250 GM/< 09/22/2013 Hysterectomy, vaginal ALLERGIES Adhesive Tape (Rosins), Benadryl [Diphenhydramine Hcl], Decadron [Dexamethasone], Erythromycin, Keftab [Cephalexin Hcl], Lorabid [Loracarbef], Rich Oil, Progesterone, Scopolamine, Selenium Sulfide, Shellfish, Tetracycline, Tussin [Dextromethorphan Hbr], and Z-Pack [Azithromycin] MEDICATIONS OTC NUTRITIONAL SUPPLEMENT Take 2 capsules by mouth once daily. fish oil 640 mg , EPA 350 mg, DHA 450 mg 2 daily ibuprofen (MOTRIN) 200 mg tablet Take 200 mg by mouth as needed. Ascorbic Acid 500 mg chew Take 500 mg by mouth once daily. sulfamethoxazole-trimethoprim (BACTRIM DS) 800-160 mg per tablet Take 1 tablet by mouth two times aday for 7 days. triamcinolone acetonide (KENALOG) 0.1 % cream Apply 1 application to affected area three times a day for 10 days. Apply sparingly to area for rash/itching. pantoprazole DR (PROTONIX) 40 mg tablet Take 1 tablet by mouth once daily. (Patient not taking: Reported on 07/11/2022) FAMILY HISTORY Problem Relation Age of Onset other (blood clots [Other]) Father Diabetes Paternal Grandmother obese Breast Cancer Maternal Aunt Cancer Maternal Aunt ovarian Cancer Maternal Aunt lung-smoker Coronary Artery Disease Maternal Aunt Coronary Artery Disease Maternal Aunt Stroke Maternal Aunt Coronary Artery Disease Maternal Uncle Coronary Artery Disease Maternal Uncle Colon Cancer No Family History Social History Tobacco Use Smoking status: Former Smokeless tobacco: Never Tobacco comments: NOV 1989 Substance Use Topics Alcohol use: No Drug use: No ROS Objective Blood pressure 124/70, pulse 78, temperature 37.1 C (98.7 F), resp. rate 16, weight 68.1 kg (150 lb2.1 oz), last menstrual period 09/08/2013, SpO2 99%. Physical Exam Constitutional: General: She is not in acute distress. Appearance: She is not toxic-appearing or diaphoretic. HENT: Head: Normocephalic and atraumatic. Pulmonary: Effort: Pulmonary effort is normal. No accessory muscle usage or respiratory distress. Skin: Neurological: Mental Status: She is alert and oriented to person, place, and time. ASSESSMENT/PLAN: 1. Skin inflammation - ICD9: 686.9, ICD10: L08.9 Start steroid cream today If s/s worsen fill/take atb rx. F/u with pcp for continued s/s - SULFAMETHOXAZOLE 800 MG-TRIMETHOPRIM 160 MG TABLET - TRIAMCINOLONE ACETONIDE 0.1 % TOPICAL CREAM Gisel Alejandre APRN.SWIMMING POOL ATTENDANT documented in this encounterGu[facility]01[facility]24 NoteHNO ID: [id number] Author: LEEROY HART RT(R) Service: ? Author Type: Technologist Type: Progress Notes Filed: 11/29/2023 14:21 Note Text: Radiology Service Progress Note PATIENT NAME: Bonnie Bermudez DATE OF SERVICE: November 29, 2023 TIME: 2:21 PM PATIENT IDENTITY VERIFICATION COMPLETED USING TWO (2) IDENTIFIERS: Name and Date of confirmed by patient verbally. FALL SCREENING: Has the patient had 2 falls in the last year or 1 fall with injury or currently using an Ambulatory Assistive Device (Walker, Cane, Wheelchair, Crutches, etc.)? No PATIENT GENDER DATA: Female. status: : No status: NO. PATIENT RELEVANT IMPLANT DATA REVIEWED: Yes PATIENT PRESENTS WITH AN IMPLANTABLE OR ATTACHED BI LEAD: No RADIOLOGY DEPARTMENT: MR; Exam(s) Completed: Spine: Lumbar spine PERIPHERAL IV DATA: Not applicable SIGNED BY: RT Kevin(R) November 29, 2023 2:21 [facility]10-03-2022 History of Present illness Narrative* Andre Lund, PT - 08/06/2022 9:13 AM EDT Episode Visit Count: 4 Therapist That Will Accept/Oversee The Plan Of Care: Andre Lund Start of Care Date: 07/19/22 Onset Date: 06/18/22 Plan of Care Certification Date: 07/19/22 Next Certification Due Date: 09/18/22 REHABILITATION AND SPORTS THERAPY PHYSICAL THERAPY TREATMENT NOTE ASSESSMENT: Bonnie Bermudez tolerated the session with decreased symptoms. She demonstrated improvements in overall strength of posterior musculature. The patient will continue to benefit from ongoing skilled physical therapy to progress toward set goals. PLAN FOR NEXT VISIT: Progress strengthening SUBJECTIVE: Patient Reason for Visit: Pt feels a bit better than last session, notes decrease in radicular symptoms and feels less tight in upper traps and SCM Pain: Pain Pain Level: 3 Pain Location: Neck - Right Description: Tightness Frequency: Intermittent Post Treatment Pain Post Treatment Pain Level: 2 Post Treatment Pain Location: Neck - Right Post Treatment Pain Description: Tightness Post Treatment Symptoms: exercises felt like a good challenged and distraction and STM relieved symptoms today OBJECTIVE MEASURES WITH LEVEL OF FUNCTION: Traction and STM relieved symptoms today, form was cued during exercises TREATMENT: Therapeutic Exercise: 2: *OTB W's 3x10 3: *OTB Rows 3x10 4: DNF head lifts 5sec holds 2x10 Skilled Intervention: Patient was educated in proper exercise technique and purpose for exercises. Skilled judgment was provided in selection of appropriate interventions. Correct performance of therapeutic exercises was facilitated with verbal and visual cuing. Manual Therapy: 1: Cervical traction x15min 2: STM to upper trapezius, SCM push to tolerance (Knot in upper trap resolved) Skilled Intervention: Manual skills to improve joint mobility, ROM, and decrease pain. Utilized anatomy knowledge of the therapist, and assessment of patient's response to intervention. Self-Halfway Management: 1: Discussed ways to treat tight muscles at home included cane with ball on endge to push into areas, self STM and traction device for home was also discussed as this improves symptoms also gave towel roll under shoulder blades as stretch Skilled Intervention: Skilled judgment in the selection of proper modification for activity of daily living/home management based on clinical presentation, deficits, and needs. Educated the patient regarding recommendations and provided written instruction to facilitate compliance. Provided written instruction for activities of daily living techniques to facilitate proper performance and compliance. Billing Therapeutic Exercise Treatment Minutes: 13 Manual TherapyTreatment Minutes: 20 Self-Care/Home Management Treatment Minutes: 5 Total Treatment Time Minutes (timed/untimed): 38 Bryce Davis, ANJALI Lund PT Direct supervision was provided by the licensed physical therapist for the entire treatment sessionand licensed provider made all clinical decisions. documented in this encounterGu[facility]09-28-2022 History of Present illness Narrative* Andre Lund PT - 08/01/2022 3:15 PM EDT Episode Visit Count: 3 Therapist That Will Accept/Oversee The Plan Of Care: Andre Lund Start of Care Date: 07/19/22 Onset Date: 06/18/22 Plan of Care Certification Date: 07/19/22 Next Certification Due Date: 09/18/22 REHABILITATION AND SPORTS THERAPY PHYSICAL THERAPY TREATMENT NOTE ASSESSMENT: Bonnie Bermudez tolerated the session with decreased symptoms. She demonstrated difficulty with tension in trapezius. The patient will continue to benefit from ongoing skilled physical therapy to progress toward set goals. PLAN FOR NEXT VISIT: Continue traction, progress cervical strengthening SUBJECTIVE: Patient Reason for Visit: Pt feels okay today, notes still feels a bit of a knot in upper trap Pain: Pain Pain Level: 4 Pain Location: Neck - Right Description: Tightness Frequency: Continuous OBJECTIVE MEASURES WITH LEVEL OF FUNCTION: Pt performed DNF chin tuck hold for 5sec 5reps without breaking form TREATMENT: Therapeutic Exercise: 1: Cervical retractions 2: *OTB W's 2x10 3: *OTB Rows 2x10 4: DNF head lifts 5sec holds 10reps Skilled Intervention: Patient was educated in proper exercise technique and purpose for exercises. Reviewed and educated patient on additions/changes for home exercise program as above (*). Skilled judgment was provided in selection of appropriate interventions. Correct performance of therapeutic exercises was facilitated with verbal and visual cuing. Manual Therapy: 1: Cervical traction x15min 2: STM to upper trapezius, SCM push to tolerance (Knot in upper trap resolved) Skilled Intervention: Manual skills to improve joint mobility, ROM, and decrease pain. Utilized anatomy knowledge of the therapist, and assessment of patient's response to intervention. Billing Therapeutic Exercise Treatment Minutes: 15 Manual TherapyTreatment Minutes: 25 Total Treatment Time Minutes (timed/untimed): 40 Bryce Davis, SPT Andre Lund PT Direct supervision was provided by the licensed physical therapist for the entire treatment sessionand licensed provider made all clinical decisions. documented in this encounterGuernsey [facility]09-15-2022 History of Present illness Narrative* Andre Lund PT - 07/19/2022 11:15 AM EDT Episode Visit Count: 1 Therapist That Will Accept/Oversee The Plan Of Care: Andre Lund Start of Care Date: 07/19/22 Onset Date: 06/18/22 Plan of Care Certification Date: 07/19/22 Next Certification Due Date: 09/18/22 Patient Identified by Name and Date of : Yes REHABILITATION AND SPORTS THERAPY PHYSICAL THERAPY EVALUATION PLAN OF CARE: Assessment: Bonnie Bermudez presents with chief complaint of right sided neck and shoulder pain that interferes with physical activities;recreational activities;sleeping;Comments Looking upward. She presents with impairments in ADL's, joint mobility, overall function, range of motion, and tissue tenderness. PROMIS (Patient-Reported Outcomes Measurement Information System) scores were reviewed and physical function domain identified as a rehabilitation concern. Prognosis for therapy is Good due to: current objective clinical presentation;within-session changes;positive past response to therapy. She will benefit from skilled therapy services to meet the goals established for this plan of care as noted below. Goals for Episode of Care: created on 07/19/22 through 09/18/22 [employer] in home exercise program. Patient will decrease pain rating by 2 points to meet minimal clinical important difference for numeric pain rating scale. Report sleeping with decreased symptoms/pain in 4 weeks. Improve postural awareness. Sleep throughout the night without pain/symptoms. Patient Goals: Increase ROM of extension, decrease pain and numbness to be able to sleep through the night Planned Interventions, Frequency, and Duration: Current Frequency: 2x/week Duration: 4 weeks Total Number of Visits Planned: 8 Planned Treatment Interventions: Therapeutic exercise (65497);Neuromuscular re- education (42731);Manual therapy (96844);Therapeutic activities (03748);Self- half-way management (74194);Body MechanicsTraining PLAN FOR NEXT VISIT: ULTT - median nerve bias/flossing, continue manual traction and STM Patient demonstrates good understanding of plan of care and treatment. The above goals and plan of care were discussed and agreed upon by patient/family. SUBJECTIVE: Bonnie Bermudez is a 61 year old female seen today for Pt complains of right sided neck and shoulder pain with numbness running into her arm and hand typically at night and first thing in the morning Patient Goals: Increase ROM of extension, decrease pain and numbness to be able to sleep through the night Functional Limitations: physical activities;recreational activities;sleeping;Comments Functional Limitation Comments: Looking upward Prior Level of Function: Independent without limitations Relevant History Past Relevant Medical Conditions: Fibromyalgia Intake Information: Prescription present Previous Treatment: Chiropractor ;Massage Red Flags Cervical Arterial Dysfunction: Dizziness;Drop attacks;Nausea;Numbness - face Cervical Arterial Dysfunction Clinical Reasoning: No identified risk factors (VBI screen performed during this visit and no symptoms elicited) Red Flags - Cervical Cervical Arterial Dysfunction: Dizziness;Drop attacks;Nausea;Numbness - face Cervical Arterial Dysfunction Clinical Reasoning: No identified risk factors (VBI screen performed during this visit and no symptoms elicited) Spine History Symptoms Location at Onset: Headache;Neck Sleeping Position: Side lying left;Side lying right Sleep Affected by Pain: Pain awakens;Pain keeps from falling asleep Pain: Pain Pain Level: 5 Pain Location: Neck - Right;Shoulder - Right Description: Sharp;Shooting;Sore;Stiffness;Tightness;Numbness Frequency: Intermittent Post Treatment Pain Post Treatment Pain Level: 3 Post Treatment Pain Location: Neck - Right;Shoulder - Right Post Treatment Pain Description: Sore;Tightness Post Treatment Symptoms: reported distraction and STM decreased symptoms and slightly increased ROM PROMIS Scales Higher is Better 09/16/2021 07/06/2022 07/17/2022 Phys Func - Score - 44 (mild dysfunction) - Phys Func - Percentile - 27 % - Social Roles - Score - 52 (within normal limits) - Social Role - Percentile - 58 % - GH Physical - Score Incomplete 50.8 (Very Good) - GH Physical - Percentile - 53 % - GH Mental - Score 45.8 (Good) 45.8 (Good) - GH Mental - Percentile 34 % 34 % - Self-Eff Symptom - Score - - 46 (Average) Self-Eff Symptom - Percentile - - 34 % T-scores: mean of general population = 50. 5 points is clinically meaningfully difference Percentiles provide an indication of how the patient's score ranks in relation to the general population. Higher percentile rankings indicate better function/quality of life. 50th percentile is the average of the general population and indicates half of respondents had a worse score. Lower is Better 05/19/2020 06/06/2020 07/06/2022 Fatigue - Score 48 (within normal limits) 51 (within normal limits) 51 (within normal limits) Fatigue - Percentile 58 % 46 % 46 % T-scores: mean of general population = 50. 5 points is clinically meaningfully difference Percentiles provide an indication of how the patient's score ranks in relation to the general population. Higher percentile rankings indicate better function/quality of life. 50th percentile is the average of the general population and indicates half of respondents had a worse score. OBJECTIVE MEASURES WITH LEVEL OF FUNCTION: Spine Observations R Cervical Spine Palpation Tenderness: Upper trapezius;Sternocleidomastoid;Paraspinals;Suboccipitals L Cervical Spine Palpation Tenderness: Upper trapezius;Sternocleidomastoid;Paraspinals;Suboccipitals Cervical Spine ROM Cervical ROM : Limitation AROM Cervical Retraction AROM: Normal Cervical Flexion AROM: Moderate limitation Cervical Extension AROM: Major limitation Cervical Side-Bend Right AROM: Major limitation Cervical Side-Bend Left AROM: Major limitation Cervical Rotation Right AROM: Major limitation Cervical Rotation Left AROM: Major limitation Repeated Test Movements - Cervical Cervical RET - Symptoms During: decreases Cervical RET - Symptoms After: better (felt stretch) Special Tests - Cervical Cervical Special Tests: Cervical Compression;Cervical Distraction;Quadrant;Spurling Cervical Compression: Negative Cervical Distraction: Positive Quadrant: Right Negative;Left Negative Spurling: Right Negative;Left Negative Education: Education Learning/educational needs: Home exercise program;Plan of Care Education Provided: Yes, see treatment interventions for education provided Education Provided To: Patient TREATMENT: PT Treatment Interventions: Therapeutic Exercise;Manual Therapy;Self-Halfway Management Evaluation Therapeutic Exercise: 1: *Cervical retrations 5sec hold x10 2: *Levator scapula stretch [id number] 3: *Lateral flexion stretch [id number] Skilled Intervention: Patient was educated in proper exercise technique and purpose for exercises. Reviewed and educated patient on additions/changes for home exercise program as above (*). Skilled judgment was provided in selection of appropriate interventions. Provided written instruction for home exercise program to facilitate proper performance and compliance. Correct performance of therapeutic exercises was facilitated with verbal and visual cuing. Manual Therapy: 1: Cervical traction x10min 2: STM to upper trapezius, SCM, suboccipitals and paraspinals push to tolerance Skilled Intervention: Manual skills to improve joint mobility, ROM, and decrease pain. Utilized anatomy knowledge of the therapist, and assessment of patient's response to intervention. Self-Halfway Management: 1: Discussed sleeping position and educated pt on pillow and interventions in order to improve sleeping position with rolled towel to support natural curvature of spine Skilled Intervention: Skilled judgment in the selection of proper modification for activity of daily living/home management based on clinical presentation, deficits, and needs. Educated the patient regarding recommendations and provided written instruction to facilitate compliance. Reviewed patient specific diagnosis in relation to activities of daily living/home management. Billing * Evaluation Low Complexity: 1 Unit Therapeutic Exercise Treatment Minutes: 5 Manual TherapyTreatment Minutes: 22 Self-Care/Home Management Treatment Minutes: 5 Total Treatment Time Minutes (timed/untimed): 55 Bryce Davis, SPT Andre Lund PT Direct supervision was provided by the licensed physical therapist for the entire treatment sessionand licensed provider made all clinical decisions. documented in this encounterGu[facility] History of Present illness Narrative* RT Nae(R) - 07/17/2022 10:00 AM EDT Radiology Service Progress Note PATIENT NAME: Bonnie Bermudez DATE OF SERVICE: July 17, 2022 TIME: 9:58 AM PATIENT IDENTITY VERIFICATION COMPLETED USING TWO (2) IDENTIFIERS: Name and Date of confirmedby patient verbally. FALL SCREENING: Has the patient had 2 falls in the last year or 1 fall with injury or currently using an Ambulatory Assistive Device (Walker, Cane, Wheelchair, Crutches, etc.)? No PATIENT GENDER DATA: Female. status: : No status: NO. PATIENT RELEVANT IMPLANT DATA REVIEWED: Not Applicable RADIOLOGY DEPARTMENT: General X-ray: Exam(s) Completed: Spine X-Ray(s): Cervical AP / LAT / FLEX-EXT PERIPHERAL IV DATA: Not applicable SIGNED BY: RT Nae(R) July 17, 2022 9:58 AM documented in this encounterGuernsey [facility]09-07-2022 History of Present illness Narrative* Kenyon Tellez PA-C - 07/11/2022 2:03 PM EDT Images from the original note were not included. Kenyon Tellez PA-C [facility] [address] [facility] [address] [place] [address] 07/11/2022 ASSESSMENT AND PLAN: Assessment : Encounter Diagnosis ICD-10-CM 1. Radiculopathy, cervical region M54.12 CONSULT TO PHYSICAL THERAPY XR CERV OTHER 4V AP/LAT/FLX/EXT Discussion: Ms. Bermudez is a pleasant 61-year-old female here for evaluation of neck and upper extremity radiating symptoms primarily in the right side. Patient has known history of fibromyalgia She has had compression fracture of T12 and L3 in the remote past from various injuries. She sees a chiropractor for these symptoms with mild benefit She has been to massage therapy for the symptoms also with intermittent benefit She takes ibuprofen OTC on an as-needed basis. States that her is a paraplegic and she is involved in his care. Looking upward seems to increase her symptoms the most. She describes her right shoulder pain at the base of her neck and trapezius and then in the arm shehas numbness in the mornings that seems to spontaneously go away Above symptoms have been present for a number of years and she feels like it might be getting worse. She has normal mobilization, stance, gait, balance, strength, sensation during the visit today, reflexes. Neck motion is diminished to about two thirds of normal in all directions reproducing posterior neck pain at the end of motion. She has some crepitus with neck motion as well There is pain on palpation over the musculature of both cervical paraspinals and over the right cervical versus trapezial junction and in the right medial scapular border Spurling's maneuver is negative bilaterally. She had 2013 and 2015 cervical x-rays that looked essentially normal. Lumbar x-rays show old L3 superior endplate mild compression deformity but are otherwise essentially normal We had a lengthy discussion about the nature of her symptoms and it appears that it is primarily mechanical and not so much neurologic. she has no true neurologic deficit on today's exam I think she would benefit from supervised PT and some updated x-rays. If symptoms persist, she will get x-rays and return for reevaluation and consideration of MRI. She is to be paying attention to the specific areas of numbness in her arm. When she returns, and described to the area of numbness, I will be able to see better if it is congruent with a cervical dermatome. Plan : DIAGNOSTIC TESTING: -X-ray views will be obtained to better evaluate bony structures. -Dynamic plain radiographs of the Cervical spine are ordered. REFERAL FOR SERVICES: -Physical therapy will be instituted. MEDICATIONS: -Current medication regimen is appropriate for this problem. ACTIVITY RECOMMENDATIONS: -The patient is encouraged to avoid bed rest and maintain normal activity. -The patient is encouraged to exercise regularly as tolerated. FOLLOW-UP: -The patient is instructed to follow up after studies are complete. -The patient is instructed to return after six weeks of therapy. ADDITIONAL DISCUSSION: -We discussed the difference between hurt vs harm as it relates to chronic pain. This document has been created with the use of voice recognition technology. It may contain inaccuracies: (e.g. misspellings, inaccurate syntax or word sense) that have escaped review. Time spent: 45 minutes today with this patient visit. This includes [id number] time, review of chart records regarding conservative care history, spine- pertinent imaging, and communication/care coordination with referring provider, problem-specific history-taking and counseling/education regarding treatment options. cc: SELF Phone: N/A Fax: Results of consultation to be transmitted via electronic medical record for those providers who practice within [facility] or with access to [employer] via [facility], or via letter. ######################################################################## CHIEF COMPLAINT: Patient is here for neck pain, right shoulder, sometimes has numbness in the rightarm when she sleeps, laying on the arm. Also has tremors in the right hand, positional. Pain limites her activities. Level of the pain is at 2/10. Has this pain for years, and now its getting worse. 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 This was completed 15 years ago. The therapy provided a notable amount of relief. Spinal Injections: She has not gotten prior spinal injections. Other: Chiropractice care: Massage therapy TENS unit - years back Current Outpatient Medications Medication Sig Dispense Refill OTC NUTRITIONAL SUPPLEMENT Take 2 capsules by mouth once daily. fish oil 640 mg , EPA 350 mg, DHA 450 mg 2 daily 100 capsule 5 ibuprofen (MOTRIN) 200 mg tablet Take 200 mg by mouth as needed. Ascorbic Acid 500 mg chew Take 500 mg by mouth once daily. pantoprazole DR (PROTONIX) 40 mg tablet Take 1 tablet by mouth once daily. (Patient not taking: Reported on 07/11/2022) 30 tablet 5 No current facility-administered medications for this visit. Allergies: Adhesive Tape (Rosins), Benadryl [Diphenhydramine Hcl], Crab Meat [Other], Decadron [Dexamethasone], Erythromycin, Keftab [Cephalexin Hcl], Lorabid [Loracarbef], Rich Oil, Progesterone, Scopolamine, Selenium Sulfide, Shellfish, Tetracycline, Tussin [Dextromethorphan Hbr], and Z-Pack [Other] PAST MEDICAL HISTORY Diagnosis Date Anxiety with somatization 03/02/2014 fibromyalgia Fibromyalgia 04/24/2012 Lumbar degenerative disc disease 11/25/2014 Lumbar radiculopathy 11/25/2014 Osteoarthritis 04/24/2012 Osteopenia 08/31/2015 see scanned documents PMH - PAST MEDICAL HISTORY OF small fibroid mast PMH - PAST MEDICAL HISTORY OF cyst on ovary PMH - PAST MEDICAL HISTORY OF low projestrone PMH - PAST MEDICAL HISTORY OF 04/04/10 torn calf muscle Ruptured silicone breast implant 04/01/2018 PAST SURGICAL HISTORY Procedure Laterality Date breast augmentation LIG/TRNSXJ FLP TUBE ABDL/VAG APPR UNI/BI 11/04/1986 Tubal ligation PAST SURGICAL HISTORY OF 06/26/2010 frozen spots on left side PT ED PLASTIC SURGERY Breast implants removed TONSILLECTOMY PRIMARY/SECONDARY <AGE 14 Tonsillectomy VAGINAL HYSTERECTOMY UTERUS 250 GM/< 09/22/2013 Hysterectomy, vaginal Social History Tobacco Use Smoking status: Former Smokeless tobacco: Never Tobacco comments: NOV 1989 Substance Use Topics Alcohol use: No Drug use: No FAMILY HISTORY Problem Relation Age of Onset other (blood clots [Other]) Father Diabetes Paternal Grandmother obese Breast Cancer Maternal Aunt Cancer Maternal Aunt ovarian Cancer Maternal Aunt lung-smoker Coronary Artery Disease Maternal Aunt Coronary Artery Disease Maternal Aunt Stroke Maternal Aunt Coronary Artery Disease Maternal Uncle Coronary Artery Disease Maternal Uncle Colon Cancer No Family History REVIEW OF SYSTEMS: Constitutional: (-) Fever/Chills (-) Night Sweats (-) Weight Gain (+) Weight Loss (+) Fatigue Gastrointestinal: (-) Abdominal Pain (-) Diarrhea (-) Constipation (-) Nausea/Vomiting (-) Heart Burn Cardiovascular: (-) Chest Pain (-) Palpitations (-) Lightheadedness (-) Swelling of Ankles (-) Hx Heart Surgery/Stent Respiratory: (-) Short of Breath (-) Cough (+) Snoring Neurologic: (+) Headache (-) Blurry Vision (-) Fainting Skin: (+) Rashes (-) Itching (-) Other Lesions Psychiatric: (-) Depression (-) Anxiety (-) Suicidal Thoughts Genitourinary: (-) Frequency (-) Urgency Endocrine: (-) Thyroid Disorder (-) Diabetes Hematologic: (-) Prolonged Bleeding (-) Easy Bruising ################################################################################ ################################################# PHYSICAL EXAM: Blood pressure 115/70, pulse 80, height 156.2 cm (5' 1.5), weight 68.5 kg (151 lb), last menstrualperiod 09/08/2013, SpO2 100 %. Body mass index is 28.07 kg/m . General: Patient is a(n) average historian. The patient appears approximately the recorded age and is sitting comfortably in the examining room. The patient is average height in stature and is overweight in appearance. This individual has no difficulty arising from a sitting position and does not have difficulty acquiring a full, upright position when standing. Station and Gait: Normal stance, normal gait. The patient is able to walk in a tandem gait. MENTAL STATUS EXAMINATION: The patient was neatly dressed and well groomed. The patient had good eye contact and rapport was average to establish. The patient appeared to be alert and oriented in all spheres. The patient's overall medical judgment appeared to be good.The patient's motivation for treatment was judged based ontoday's encounter to be good. SPINE: Cervical Lordosis: Normal Thoracic Kyphosis: Normal Skin: Normal-no rashes, bruises, lesions, or signs of localized trauma., Skin color, texture and turgor normal. Paraspinal atrophy: No Range of Motion: Flexion: 2 fingerbreadths from chin to chest Pain: Yes Extension: limited with pain Rotation: Right: limited with pain Left: limited with pain PALPATION TENDERNESS: Moderate tenderness at: cervical spine, shoulders/trapezius, and thoracic spine Hyperesthesia present: No Regional symptoms present: No Increased pain with axial loading: No Distraction: Normal Pain responses: elevated NEUROLOGIC EXAM: Requires verbal cues to minimize cog-wheel or give-way resistance: No MOTOR: Deltoid R: 5/5 L: 5/5 Biceps R: 5/5 L: 5/5 Wrist Extension R: 5/5 L: 5/5 Wrist Flexion R: 5/5 L: 5/5 Triceps R: 5/5 L: 5/5 Clin Tech R: 5/5 L: 5/5 Interossei R: 4/5 L: 4/5 SENSATION to Light Touch: Cervical: C2-T2 symmetrically normal. Thoracic: T1-L1 symmetrically normal. Spurling's: Negative bilaterally. REFLEXES: Upper Extremity: All Upper Extremity reflexes symmetrically normal. Lower Extremity: All Lower Extremity reflexes symmetrically normal. Abraham's: Negative bilaterally. Clonus: R: 0 beats/Normal L: 0 beats/Normal IMAGING STUDIES: See discussion above documented in this encounterGu[facility]08-17-2022 History of Present illness Narrative* Karlie Saleh MD - 06/20/2022 2:26 PM EDT CHIEF COMPLAINT: Patient presents with: Dysphagia: Acid Reflux This consult was requested by MD Eamon for an opinion regarding GERD. My final recommendations willbe communicated to the requesting health care provider by way of the shared medical record for internal providers or letter via the [employer] for external providers. HPI: Bonnie Bermudez is a 61 year old female who presents for Dysphagia (Acid Reflux ). GERD Worse in the last year She has been watching her diet in the past Also endorsed issues with intermittent dysphagia to solids that has been getting worse int he last few months Underwent 2 surgeries and courses of abx in the last 2 months Fish, some meat, and dry food could get stuck in the lower esophagus She usually drinks water to get it down Has some nausea Could get some asthma like symptoms when she eats bread Never had EGD Record Review: [facility] / Outside records reviewed. PAST MEDICAL HISTORY Diagnosis Date Anxiety with somatization 03/02/2014 fibromyalgia Fibromyalgia 04/24/2012 Lumbar degenerative disc disease 11/25/2014 Lumbar radiculopathy 11/25/2014 Osteoarthritis 04/24/2012 Osteopenia 08/31/2015 see scanned documents PMH - PAST MEDICAL HISTORY OF small fibroid mast PMH - PAST MEDICAL HISTORY OF cyst on ovary PMH - PAST MEDICAL HISTORY OF low projestrone PMH - PAST MEDICAL HISTORY OF 04/04/10 torn calf muscle Ruptured silicone breast implant 04/01/2018 PAST SURGICAL HISTORY Procedure Laterality Date breast augmentation LIG/TRNSXJ FLP TUBE ABDL/VAG APPR UNI/BI 11/04/1986 Tubal ligation PAST SURGICAL HISTORY OF 06/26/2010 frozen spots on left side PT ED PLASTIC SURGERY Breast implants removed TONSILLECTOMY PRIMARY/SECONDARY <AGE 14 Tonsillectomy VAGINAL HYSTERECTOMY UTERUS 250 GM/< 09/22/2013 Hysterectomy, vaginal Allergies: ALLERGIES Allergen Reactions Adhesive Tape (Melodie* Other: See Comments makes skin raw Benadryl [Diphenhyd* Crab Meat [Other] Decadron [Dexametha* Anaphylaxis 09/19/21 Skin test positive to dexamethasone. Erythromycin Keftab [Cephalexin * Lorabid [Loracarbef] Rich Oil Rash Progesterone GI Upset Scopolamine Other: See Comments 09/19/21 History of perioperative anaphylaxis with scopolamine as possible culprit. Selenium Sulfide Shellfish Tetracycline Rash Tussin [Dextrometho* Z-Pack [Other] Medications: OTC NUTRITIONAL SUPPLEMENT Take 2 capsules by mouth once daily. fish oil 640 mg , EPA 350 mg, DHA 450 mg 2 daily Ascorbic Acid 500 mg chew Take 500 mg by mouth once daily. pantoprazole DR (PROTONIX) 40 mg tablet Take 1 tablet by mouth once daily. ibuprofen (MOTRIN) 200 mg tablet Take 200 mg by mouth as needed. 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 Gastrointestinal: Positive for diarrhea and nausea. Gas, Heartburn All other systems reviewed and are negative. Are you taking any blood thinners? No Physical Examination: BP 134/82 Pulse 92 Ht 5' 1.5 (1.56m) Wt 159 lb (72.1kg) LMP 09/08/2013 BMI 29.56 kg/(m^2). Physical Exam General: Alert, oriented, No acute distress. Skin: No rash; warm. Head: Normocephalic, atraumatic. Eyes: EOMI, PERRLA. Lymph: No cervical lymphadenopathy. Thyroid: Neck supple. No thyromegaly. Heart: S1, S2. No murmurs, gallops or rubs. Lungs: Clear to auscultation bilaterally. No wheezes or crackles. Abdomen: Soft, nontender, nondistended. Bowel sounds are normal. No organomegaly. Musculoskeletal: No joint swelling or effusion. Extremities: No cyanosis, clubbing or edema. Mental: Mood appropriate. Not depressed. Neuro: Cranial nerves II through XII intact. ASSESSMENT: Gastroesophageal reflux disease, unspecified whether esophagitis present (primary encounter diagnosis) Esophageal dysphagia Colon cancer screening PLAN: -Outpatient Protonix 40 mg daily -Discussed potential side effects with the patient and patient agreed to proceed with PPI trial -Schedule upper endoscopy with mid and lower esophageal biopsies and possible dilation -Patient wants to think about colonoscopy. Advised the patient to get the colonoscopy done or othernoninvasive tests for colorectal cancer screening This office note has been created using [employer], a speech recognition software program, and may contain errors including punctuation, grammar, spelling, gender, and inappropriate words or phrases that pertain to the sytem. Karlie Saleh MD Office Visit on 06/20/22 EGD DIAGNOSTIC No follow-ups on file. Karlie Saleh MD DATE: 06/20/22 TIME: 2:33 PM documented in this encounterGuernsey [facility]05-19-2022 History of Present illness Narrative* RT Nae(R) - 03/22/2022 11:30 AM EDT Radiology Service Progress Note PATIENT NAME: Bonnie Bermudez DATE OF SERVICE: March 22, 2022 TIME: 11:43 AM PATIENT IDENTITY VERIFICATION COMPLETED USING TWO (2) IDENTIFIERS: Name and Date of confirmedby patient verbally. FALL SCREENING: Has the patient had 2 falls in the last year or 1 fall with injury or currently using an Ambulatory Assistive Device (Walker, Cane, Wheelchair, Crutches, etc.)? No PATIENT GENDER DATA: Female. status: : No status: NO. PATIENT RELEVANT IMPLANT DATA REVIEWED: Not Applicable RADIOLOGY DEPARTMENT: General X-ray: Exam(s) Completed: Rib X-Ray: Left PERIPHERAL IV DATA: Not applicable SIGNED BY: RT Nae(R) March 22, 2022 11:43 AM documented in this encounterGuernsey Memorial HospitalEvaluation noteNo assessment information availableWMercy Health Defiance Hospital Work Phone: Evaluation note* Diagnosis Gastroesophageal reflux disease, unspecified whether esophagitis present- Primary Esophageal dysphagia Dysphagia, pharyngoesophageal phase Colon cancer screening Special screening for malignant neoplasms, colon documented in this encounter [facility] note* Diagnosis Radiculopathy, cervical region- Primary Brachial neuritis or radiculitis nos documented in this encounter [facility] note* Diagnosis Radiculopathy, cervical region Brachial neuritis or radiculitis nos documented in this encounter [facility] note* Diagnosis Radiculopathy, cervical region Brachial neuritis or radiculitis nos documented in this encounter [facility] note* Diagnosis Radiculopathy, cervical region- Primary Brachial neuritis or radiculitis nos documented in this encounter [facility] note* Diagnosis Radiculopathy, cervical region- Primary Brachial neuritis or radiculitis nos documented in this encounter [facility] note* Diagnosis Skin inflammation- Primary Unspecified local infection of skin and subcutaneous tissue documented in this encounter [facility] Discharge instructions Additional Instructions Take qvvr-ywg-[id number] analgesics as needed. Follow-up with podiatry within 1 week. Wear postop shoe for standing or walking. Weightbearing as tolerated. Return to the emergency department with new or worsening symptoms.[facility] Work Phone: Reason for referral (narrative)* Outpatient Procedure (Routine) - Pending Review Specialty Diagnoses / Procedures Referred By Ayla roger Referred To Contact [facility] Diagnoses Gastroesophageal reflux disease, unspecified whether esophagitis present Esophageal dysphagia Colon cancer screening Procedures EGD DIAGNOSTIC ESOPHAGOGASTRODUODENOSC OPY TRANSORAL DIAGNOSTIC Karlie Saleh MD [address] [place] [address] [facility] [place] [address] [place] [id number] Referral ID Status Reason Start Date Expiration Date Visits Requested Visits Authorized [id number] Pending Review Auto-Generat ed Referral 06/20/2022 06/20/2023 1 1 [facility] for referral (narrative)* Diagnostic Procedure Only (Routine) - Pending Review Specialty Diagnoses / Procedures Referred By Ayla roger Referred To Contact XR IMAGING Diagnoses Radiculopathy, cervical region Procedures XR CERV OTHER 4V AP/LAT/FLX/EXT RADEX SPINE CERVICAL 4 OR 5 VIEWS Kenyon Tellez PA-C [address] [place] [address] Xr Imaging Referral ID Status Reason Start Date Expiration Date Visits Requested Visits Authorized [id number] Pending Review Auto-Generat ed Referral 07/11/2022 08/10/2023 1 1 * - Pending Review Specialty Diagnoses / Procedures Referred By Contac t Referred To Contact Diagnoses Radiculopathy, cervical region Procedures CONSULT TO PHYSICAL THERAPY Kenyon Tellez PA-C [address] [phone] Referral ID Status Reason Start Date Expiration Date V isits Requested Visits Authorized [id number] Pending Review 07/11/2022 10/09/2022 1 1 [facility] for referral (narrative)* Diagnostic Procedure Only (Routine) - Closed Specialty Diagnoses / Procedures Referred By Contac t Referred To Contact XR IMAGING Diagnoses Radiculopathy, cervical region Procedures XR CERV OTHER 4V AP/LAT/FLX/EXT RADEX SPINE CERVICAL 4 OR 5 VIEWS Kenyon Tellez PA-C [address] [phone] Xr Imaging Referral ID Status Reason Start Date Expiration Date V isits Requested Visits Authorized [id number] Closed Auto-Generate d Referral 07/11/2022 08/10/2023 1 1 [facility] for referral (narrative)No reason for referral information availableWMercy Health Def[facility] Hospital Work Phone: Reason for visit Narrative* Diagnostic Procedure Only (Routine) - Closed Specialty Diagnoses / Procedures Referred By Contac t Referred To Contact XR IMAGING Diagnoses Radiculopathy, cervical region Procedures XR CERV OTHER 4V AP/LAT/FLX/EXT RADEX SPINE CERVICAL 4 OR 5 VIEWS Kenyon Tellez PA-C [address] [place] [address] Xr Imaging Referral ID Status Reason Start Date Expiration Date V isits Requested Visits Authorized [id number] Closed Auto-Generate d Referral 07/11/2022 08/10/2023 1 1 [facility] Summary Purpose Family History No Family History Records Found Relationship Condition Age at Onset Recorded Date/T arely Not Specified Severe allergy Unknown History of blood clots Unknown Diabetes mellitus Unknown Malignant neoplasm Unknown father Anxiety and depression Unknown grandmother Arthritis Unknown Osteoporosis Unknown aunt Malignant neoplasm of breast Unknown Malignant neoplasm of ovary Unknown mother Malignant neoplasm of breast Unknown Advance Directives No Advanced Directives Records FoundDocuments on File Type Date Recorded 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 No April 04, 2025 5:52pm Chief Complaint and Reason for Visit Chief Complaint POST MENOPAUSAL Chief Complaint Admit Date lower ext April 04, 2025 5:00p m Additional Source Comments INFORMATION SOURCE (unrecogn ized section and content) DATE CREATED AUTHOR 10/19/2020 [facility] DATE CREATED AUTHOR AUTHOR'S ORGANIZ ATION 08/04/2022 [facility] DATE CREATED AUTHOR AUTHOR'S ORGANIZ ATION 05/04/[address] [facility] DATE CREATED AUTHOR AUTHOR'S ORGANIZ ATION 06/26/2025 [facility] Source Comments (unrecognize d section and content) In the event this informatio n is protected by the Federal Confidentiality of Alcohol and Drug Abuse Patient Records regulations: The Federal rules restrict any use of the information to criminally investigate or prosecute any alcohol or drug abuse patient.[facility] the event this information is protected by the Federal Confidentiality of Alcohol and Drug Abuse Patient Records regulations: The Federal rules restrict any use of the information to criminally investigate or prosecute any alcohol or drug abuse patient.[facility] the event this information is protected by the Federal Confidentiality of Alcohol and Drug Abuse Patient Records regulations: The Federal rules restrict any use of the information to criminally investigate or prosecute any alcohol or drug abuse patient.[facility] Hospital[facility] the event this information is protected by the Federal Confidentiality of Alcohol and Drug Abuse Patient Records regulations: The Federal rules restrict any use of the information to criminally investigate or prosecute any alcohol or drug abuse patient.[facility] the event this information is protected by the Federal Confidentiality of Alcohol and Drug Abuse Patient Records regulations: The Federal rules restrict any use of the information to criminally investigate or prosecute any alcohol or drug abuse patient.[facility] Hospital[facility] the event this information is protected by the Federal Confidentiality of Alcohol and Drug Abuse Patient Records regulations: The Federal rules restrict any use of the information to criminally investigate or prosecute any alcohol or drug abuse patient.[facility] Hospital[facility] the event this information is protected by the Federal Confidentiality of Alcohol and Drug Abuse Patient Records regulations: The Federal rules restrict any use of the information to criminally investigate or prosecute any alcohol or drug abuse patient.[facility] the event this information is protected by the Federal Confidentiality of Alcohol and Drug Abuse Patient Records regulations: The Federal rules restrict any use of the information to criminally investigate or prosecute any alcohol or drug abuse patient.[facility] Hospital[facility] the event this information is protected by the Federal Confidentiality of Alcohol and Drug Abuse Patient Records regulations: The Federal rules restrict any use of the information to criminally investigate or prosecute any alcohol or drug abuse patient.[facility] HospitalIn the event this information is protected by the [facility] Confidentiality of Alcohol and Drug Abuse Patient Records regulations: The Federal rules restrict any use of the information to criminally investigate or prosecute any alcohol or drug abuse patient.[facility] HospitalIn the event this information is protected by the Federal Confidentiality of Alcohol and Drug Abuse Patient Records regulations: The Federal rules restrict any use of the information to criminally investigate or prosecute any alcohol or drug abuse patient.[facility] Care Teams (unrecognized sec tion and content) County Health Officer Relationship Specialty Start Date End Date Olive Wilson DO [address] [place] [address] PCP - General Family Practice 06/06/17 County Health Officer Relationship Specialty Start Date End Date Olive Wilson DO [address] [place] [address] PCP - General Family Practice 06/06/17 County Health Officer Relationship Specialty Start Date End Date Olive Wilson DO [address] [place] [address] PCP - General Family Practice 06/06/17 County Health Officer Relationship Specialty Start Date End Date Steve Olive NilsaDO [address] [place] [address] PCP - General Family Practice 06/06/17 County Health Officer Relationship Specialty Start Date End Date Olive Wilson [address] [place] [address] PCP - General Family Practice 06/06/17 County Health Officer Relationship Specialty Start Date End Date Steve Olive Ash DO [address] [place] [address] PCP - General Family Practice 06/06/17 County Health Officer Relationship Specialty Start Date End Date SteveOlive DO [address] [place] [address] PCP - General Family Practice 06/06/17 County Health Officer Relationship Specialty Start Date End Date Olive Wilson DO [address] [place] [address] PCP - General Family Medicine 06/06/17 County Health Officer Relationship Specialty Start Date End Date Olive Wilson DO [address] [place] [address] PCP - General Family Medicine 06/06/17 Team Status: Active Member Role Status Dates Dr. Olive Wilson DO Family Provider Active Dr. Olive Wilson DO Primary Care Provider Active Team Status: Inactive Member Role Status Dates Dr. Olive Wilson DO Primary Care Prov ider, Attending Provider, Referring Provider Active County Health Officer Relationship Specialty Start Date End Date Olive Wilson DO [address] [place] [address] PCP - General Family Medicine 06/06/17 Team Status: Active Member Role Status Dates Dr. Olive Wilson DO Primary Care Provider Active Team Status: Inactive Member Role Status Dates Dr. Olive Wilson DO Primary Care Provider Active Start: April 04, 2025 End: April 04, 2025 Juan Jose Kaiser MD Emergency Provider Active Star t: April 04, 2025 End: April 04, 2025 Goals (unrecognized section and content) Goals may be documented in a n alternate section Reason for Visit (unrecogniz ed section and content) Reason Comments Physical Therapy Specialty Diagnoses / Procedures Referred By Contac t Referred To Contact PHYSICAL THERAPY Diagnoses Radiculopathy, cervical region Procedures CONSULT TO PHYSICAL THERAPY PHYSICAL THERAPY EVALUATION HIGH COMPLEX 45 MINS THERAPEUTIC EXERCISES RE, EA 15 MIN. Kenyon Tellez PA-C [address] [place] [address] Pt [facility] [address] [place] [address] Referral ID Status Reason Start Date Expiration Date V isits Requested Visits Authorized [id number] Authorized 07/17/2022 11/03/2022 99 99 Reason Comments Dysphagia Acid Reflux Reason Comments New Patient Neck Pain Pain (Shoulder Pain) right Reason Comments PT Eval Reason Comments Derm Problem redness, circular ar ea on left bicep x 5 days, itching FOR RECORDS PERTAINING TO PATIENTS WHO ARE OR HAVE BEEN ENROLLED IN A CHEMICAL DEPENDENCY/SUBSTANCEABUSE PROGRAM, SOME INFORMATION MAY BE OMITTED. This clinical summary was aggregated from multiple sources. Caution should be exercised in using it in the provision of clinical care. This summary normalizes information from multiple sources, and as a consequence, information in this document may materially change the coding, format and clinical context of patient data. In addition, data may be omitted in some cases. CLINICAL DECISIONS SHOULD BE BASED ON THE PRIMARY CLINICAL RECORDS. [employer] provides no warranty or guarantee of the accuracy or completeness of information in this document.
[2025-06-27 21:00] VITALS: BP 144/76; PULSE 69; RESP 18; O2SAT 98
--- NOTE | 2025-06-27 21:28 | RAD_ITS ---
PROCEDURE: CHEST PA AND LATERAL 06/27/2025 REASON FOR EXAM: CHEST PAIN TECHNIQUE: CHEST PA AND LATERAL COMPARISON: None FINDINGS: Hardware: No internal hardware. Heart: Normal size Mediastinum: Normal contour and appearance Lungs: Clear and expanded Bones: No aggressive bone lesions RAD/Chest PA and Lateral IMPRESSION: No acute process detected [facility]
--- NOTE | 2025-06-27 21:28 | EKG12_ITS ---
Test Reason : DYSRHYTHMIA Blood Pressure : */* mmHG Vent. Rate : 69 BPM Atrial Rate : 69 BPM P-R Int : 146 ms QRS Dur : 88 ms QT Int : 422 ms P-R-T Axes : 62 -12 52 degrees QTcB Int : 452 ms Normal sinus rhythm Normal ECG Confirmed by OSVALDO KEARNEY, MARY ([id number]), editor index KIYA GUTIERREZ ([id number]) on 06/28/2025 1:10:24 PM Referred By: Confirmed By: MARY RILEY MD
--- NOTE | 2025-06-27 21:28 | CT_ITS ---
PROCEDURE: BRAIN/HEAD WITHOUT CONTRAST 06/27/2025 REASON FOR EXAM: DIZZY History of vertigo TECHNIQUE: BRAIN/HEAD WITHOUT CONTRAST Coronal and Sagittal reconstruction series were provided. One or more dose reduction techniques were used (e.g., Automated exposure control, adjustment of the mA and/or kV according to patient size, use of iterative reconstruction technique. RADIATION DOSE SUMMARY: CTDlvol: 44.99 mGy DLP: 829.85 mGycm COMPARISON: None. FINDINGS: Brain: No intra-axial or extra-axial hemorrhage. No mass, mass effect or midline shift. CSF Spaces: Ventricles and CSF spaces are normal for age. Sinuses/Mastoids: Clear Bones: No fracture or acute process identified. No acute process in the brain. CT/Brain/Head without Contrast IMPRESSION: No acute process is detected. Reading [facility]
--- NOTE | 2025-06-27 21:56 | PCA ---
NO OLD EKG
[2025-06-27 22:00] VITALS: BP 136/76; PULSE 68; RESP 20; O2SAT 98
--- NOTE | 2025-06-27 22:05 | ED.RN ---
This RN and additional RN in room to attempt IV access. Pt is going back and forth on if she wants to have the IV and receive IV fluids. Pt states she is typically a difficult stick. 2 attempts made by this RN, unsuccessful. Asked console operator to attempt. Pt up to RR in the meantime and states that her dizziness is improved. console operator in room, pt stating specific location she would like RN to attempt. Pt moving around in bed, kicking her legs. Unsuccessful attempt. Pt refusing to let weigher and charger attempt again. in room attempting to calm patient down and encourage her to let staff obtain access, but patient still refusing. Notified Dr Kaiser.
--- NOTE | 2025-06-27 23:40 | EX.ED.DYSGE1 ---
HPI History of Present Illness Chief Complaint: Dizziness Narrative Narrative: Patient is a 64-year-old female with past medical history of migraines, fibromyalgia, IBS, anemia who presents to the emergency department chief complaint of dizziness and nausea. According the patient and she states that yesterday she had a complex migraine and noted that she was not feeling well overall. She states that she woke up this morning feeling better and did several errands. States that she then came home and was relaxing went to stand up and became dizzy. She states that then she laid down to see if things would get better. States that this does feel like her vertigo that she has in the past. [facility] Medical History Migraines History of frequent headaches Fibromyalgia Vision problem Osteoarthritis IBS (irritable bowel syndrome) Hives Frequent headaches UTI (urinary tract infection) Bone fracture Back problem Arthritis Anemia Home Medications ?Medication ?Instructions ?Recorded ?Last Taken ?Type ascorbate calcium (vitamin C) 500 500 mg PO DAILY 11/11/19 Unknown History mg tablet omega 3-fae-eiu-fish oil 1,200 mg 1 cap PO DAILY 11/11/19 Unknown History (144 mg-216 mg) capsule Allergy/AdvReac Type Severity Reaction Status Date / Time dexamethasone (From Decadron) Allergy Severe Anaphylaxis Verified 06/27/25 18:01 Environmental Allergies: Allergy Severe Rash Verified 06/27/25 18:01 Uncoded (pine) erythromycin base Allergy Severe SEVERE Verified 06/27/25 18:01 STOMACH PAIN progesterone Allergy Severe Rash Verified 06/27/25 18:01 selenium sulfide Allergy Severe BODY RASH Verified 06/27/25 18:01 azithromycin (From Zithromax) Allergy Rash Verified 06/27/25 18:01 cephalexin monohydrate (From Allergy Rash Verified 06/27/25 18:01 Keflex) diphenhydramine HCl (From Allergy Other Verified 06/27/25 18:01 Benadryl) loracarbef (From Lorabid) Allergy Other Verified 06/27/25 18:01 Penicillins Allergy Anaphylaxis Verified 06/27/25 18:01 shellfish derived Allergy Anaphylaxis Verified 06/27/25 18:01 tetracycline Allergy Rash Verified 06/27/25 18:01 adhesive tape AdvReac Intermediate RAW SKIN Verified 06/27/25 18:01 cephalexin AdvReac Mild Rash Verified 06/27/25 18:01 Family History Father Anxiety and depression Grandmother Arthritis Osteoporosis Aunt Breast cancer Ovarian cancer Mother Breast cancer Other Cancer Diabetes History of blood clots Severe allergy Surgical History History of right knee surgery History of bilateral breast implants History of dilation and curettage History of hysterectomy History of tubal ligation Social History Smoking Status: Former smoker alcohol intake: current details: SPECIAL OCCASIONS MAYBE 4 - 5 TIMES A YEAR substance use type: does not use additional social history: DOES USE IBUPROFEN HAS USED ASPIRIN IN THE PAST BUT NOT FOR THE PAST 30 YEARS ROS ROS ED ROS Narrative Constitutional: Complaint of dizziness as noted above denies any fevers, chills, headaches, Eyes: Denies double vision blurry vision changes vision Cardiovascular: Denies chest pain Respiratory: Denies shortness of breath Abdomen: Complaint of nausea as noted above denies of vomiting or abdominal pain : Denies any urinary symptoms Neurological: Denies any numbness, weakness, tingling Musculoskeletal: Denies back pain Skin: Denies any rashes or lesions EXAM Physical Exam Narrative Exam Narrative: General: Patient is lying in bed rest comfortably did not appear to be in acute distress Head: Atraumatic, normocephalic Eyes: PERRL bilateral, EOMI blood, no conjunctival injection noted Neck: Soft, supple, trachea midline Cardiovascular: Regular rate and rhythm Respiratory: Clear to auscultation bilaterally Abdomen: Soft, nondistended, no tenderness palpation Extremities: +5/5 strength noted in the bilateral upper and lower extremities, radial pulses +2/4 in the bilateral upper extremities Neurological: Patient following commands knew that she was at [facility] year is 2024. NIH of 0 GCS 15. Patient completed finger-nose testing bilaterally found difficulty Skin: Warm, dry, tact no rashes or lesions noted Const Vital Signs: 06/27/25 18:01 06/27/25 19:24 06/27/25 20:00 Temperature 97.8 F Temperature Source Temporal Pulse Rate 83 69 66 Respiratory Rate 16 12 12 Blood Pressure 122/80 H 144/78 H 147/77 H Blood Pressure Mean 94 100 100 Pulse Ox 100 100 100 Oxygen Delivery Method Room Air Room Air Room Air 06/27/25 21:00 06/27/25 22:00 06/27/25 22:08 Temperature Temperature Source Pulse Rate 69 68 Respiratory Rate 18 20 H Blood Pressure 144/76 H 136/76 H Blood Pressure Mean 98 96 Pulse Ox 98 98 Oxygen Delivery Method Room Air Room Air Room Air MDM MDM MDM Narrative Medical decision making narrative: Patient is a 64-year-old female who presents to the emergency department the chief complaint of dizziness. On the differential diagnose includes but not limited to peripheral vertigo, complex migraine, intracranial hemorrhage, ischemic stroke, posterior circulation stroke. Once workup is obtained reviewed she will be reevaluated. I had discussion about giving the patient vertigo and nausea medication and she immediately states that she does not want anything medication correia says she has a a lot of different allergies to medicines and she states that she had testing done by an electrician underground recently and notes that she had an allergy to Zofran. She states that she had a episode of anaphylactic shock where she ended up on the ventilator and on multiple vasopressors and required significant mount time of CPR therefore she is fearful to take anything. I also inquired about iodine contrast and she states that she is not sure but she does not want any of this. I advised her that if we do not obtain these imaging studies her evaluation will be very limited and she voiced understanding of this as well as her significant other bedside. Nursing staff attempted to obtain blood work off the patient and they were unable to do so the patient gave them 1 chance and now she is refusing any further blood draws. Patient CT head and brain without contrast showed no acute processes. Patient's chest x-ray reviewed by myself by radiology showed no acute cardiopulmonary processes. Patient's EKG reviewed showed sinus rhythm with a rate of 69 bpm. I went back in and reevaluated the patient she states that she is feeling much better and wants to go home at this point time. Advised her once again that our workup here in the emergency department was severely limited and the evaluation today as she was refusing blood work and contrast for CTA head and neck. I voiced that there is a chance that we could be missing a aneurysm, large vessel occlusion, posterior circulation stroke where she would need admitted for further workup. States that she does not want this and wants to go home and states that she will follow-up with her doctor in the outpatient setting and return with worsening symptoms or concerns. Her significant other is agreeable this plan as well all question concerns answered she was discharged home in stable condition. Radiography Diagnostic Testing: Clinical Impression(s) from Imaging Studies Brain CT 06/27/25 21:28 IMPRESSION: No acute process is detected. Reading Location: [facility] Chest X-Ray 06/27/25 21:28 IMPRESSION: No acute process detected Reading [facility] Discharge Plan Triage Chief Complaint: Dizziness ED Provider: Will Hood Dx/Rx/DC Orders Clinical Impression: Dizziness, Fibromyalgia, Migraine Prescriptions: No Action ascorbate calcium (vitamin C) 500 mg tablet 500 mg PO DAILY omega 1-vvz-hrw-fish oil 1,200 (144-216) mg capsule 1 cap PO DAILY Primary Care Provider: Josep Wilson Referrals: Josep Wilson, [Primary Care Provider] - Activity Restrictions/Additional Instructions: Your CT of your head did not show acute findings and your x-ray of your chest did not show any acute findings. Given that we are unable to do blood work today your exam was limited. Return with worsening symptoms or concerns. Print Language: Faroese Disposition Disposition: Home, Self Care
[2025-06-27 23:46] VITALS: BP 136/78; PULSE 68; RESP 18; TEMP 36.7; O2SAT 100
== END 2025-06-27 23:46 | disposition home or self-care (01) ==
PROVIDERS: Emergency Provider Emergency Medicine; PCP Family Medicine; Visit Provider Emergency Medicine
DX: R42 Dizziness and giddiness (principal); G43.909 Migraine, unspecified, not intractable, without status migrainosus; M79.7 Fibromyalgia; Z87.891 Personal history of nicotine dependence
CPT/HCPCS: 70450; 71046; 93005; 99283; A4216

== ENCOUNTER → 2025-07-07 | Outpatient (CLI) | payer BC, SELFPAY ==
[2025-07-07 13:24] LABS: AST(SGOT) 20 U/L (<=31); Alanine Aminotransfer ALT/SGPT 14 U/L (<=34); Albumin, Serum 4.4 g/dL (3.4-4.8); Alkaline Phosphatase 65 U/L (35-104); Anion Gap 12 (5-15); BUN 11 mg/dL (4-19); BUN/Creat Ratio 14.7 RATIO (10-20); Calcium,Total 9.5 mg/dL (7.6-11.0); Carbon Dioxide 22.7 mmol/L (21.0-32.0); Chloride 104 mmol/L (98-108); Globulin 2.7 g/dL (2.2-4.2); Glucose 97 mg/dL (70-99); Potassium 3.6 mmol/L (3.3-5.1); Vitamin D,25 Hydroxy 30.3 ng/mL (30-100)
== END | disposition home or self-care (01) ==
LOC: BFHLAB 10:17
PROVIDERS: PCP Family Medicine; Visit Provider Family Medicine
DX: Z00.00 Encounter for general adult medical examination without abnormal findings (principal); E55.9 Vitamin D deficiency, unspecified
CPT/HCPCS: 36415; 80053; 82306